=== PATIENT | female | born 1945 | race Caucasian/White ===

== ENCOUNTER → 2017-04-06 | Outpatient (CLI) | payer MEDICARE ==
[~2017-04-06] MED LIST: ACYC400T PO; ALEN70TA47 PO; ALPR0.25 PO; AMLO10TA2 PO; BUSP15 PO; CARV25TA PO; CIPR-278 PO; CLON0.2T PO; DULO60CA63 PO; FEXO-59 PO; FLUT1AER5 IH; GABA-318 PO; LEVO100T12 PO; LEVO88TA7 PO; LIOT5TAB8 PO; LOSA100T29 PO; METF500T6 PO; MONT10TA24 PO; NAPR-1023 PO; PANT40TA25 PO; QUET100T70 PO; RANI150T7 PO; TIZA4TAB4 PO
== END | disposition home or self-care (01) ==
LOC: RAH 14:55
PROVIDERS: ATTEND Family Medicine
DX: J44.9 Chronic obstructive pulmonary disease, unspecified (principal); I51.7 Cardiomegaly; R91.8 Other nonspecific abnormal finding of lung field
CPT/HCPCS: 71046

== ENCOUNTER 2017-04-12 07:27 | Inpatient (IN) | payer MEDICARE ==
[~2017-04-12] VITALS: Ht 167.6 cm; Wt 80.3 kg
[~2017-04-12 07:27] MED LIST changes: -ACYC400T PO; -AMLO10TA2 PO; -CIPR-278 PO; -DULO60CA63 PO; -LEVO88TA7 PO; -NAPR-1023 PO; -RANI150T7 PO
[2017-04-12 07:52] LABS: BASOPHILS % (AUTO) 1.1 % (0.0-5.0); EOSINOPHILS % (AUTO) 1.1 % (0.0-8.0); HEMATOCRIT 38.2 % (36-48); MEAN CORPUSCULAR HEMOGLOBIN 29.8 pg (27.0-33.0); MEAN CORPUSCULAR HGB CONC 34.2 g/dL (32.0-36.0); MEAN CORPUSCULAR VOLUME 87.3 fL (79-99); MONOCYTES % (AUTO) 9.3 % (3.0-13.0); NEUTROPHILS % (AUTO) 68.5 % (40.0-77.0); NUCLEATED RED BLOOD CELLS 0.1 % (0.0-0.19); PLATELET COUNT (AUTO) 187 K/uL (130-400); RED BLOOD CELL COUNT(AUTO) 4.37 MIL/uL (4.00-5.50); WHITE BLOOD COUNT (AUTO) 6.7 K/uL (4.8-10.8)
[2017-04-12] MEDS ORDERED: SODIUM CHLORIDE 0.9% 1000ML 1,000 ML IV ONE (07:52)
[2017-04-12] MEDS ORDERED: ONDANSETRON HCL 4 MG/2 ML VIAL ONE (07:52)
[2017-04-12] MEDS ORDERED: MORPHINE SULFATE 4 MG/1ML SYG ONE ×2 (07:53→10:13)
[2017-04-12 07:57] LABS: CARBON DIOXIDE 28 mmol/L (21-32); CHLORIDE 98 mmol/L (101-111); CREATININE 0.8 mg/dL (0.5-1.5); GLOMERULAR FILTR. RATE CALC 75 mL/min (>60); GLUCOSE,RANDOM 138 mg/dL (70-105); POTASSIUM 3.7 mmol/L (3.5-5.1); SODIUM SERUM 134 mmol/L (136-145); UREA NITROGEN, BLOOD 12 mg/dL (7-18)
[2017-04-12 08:12] LABS: ALANINE AMINOTRANSFERASE 14 U/L (12-78); ALBUMIN 3.3 g/dL (3.5-5.0); ASPARTATE AMINOTRANSFERASE 15 U/L (10-37); BILIRUBIN,TOTAL 0.5 mg/dL (0.2-1.0); CREATINE KINASE MB < 0.5 ng/mL (0.5-3.6); CREATINE KINASE, TOTAL 47 U/L (21-232); TOTAL PROTEIN, SERUM 6.6 g/dL (6.0-8.3)
[2017-04-12 09:59] LABS: APPEARANCE,URINE Clear (CLEAR); BILIRUBIN,URINE Negative (NEGATIVE); COLOR,URINE Yellow (YELLOW); GLUCOSE, URINE (UA) Negative (NEGATIVE); KETONES,URINE Negative (NEGATIVE); LEUKOCYTE ESTERASE ,URINE Negative (NEGATIVE); NITRATE,URINE Negative (NEGATIVE); OCCULT BLOOD,URINE Negative (NEGATIVE); PH,URINE 5.5 (5.0-8.0); PROTEIN,URINE Negative (NEGATIVE); UROBILINOGEN,URINE 0.2 mg/dL (0.2-1.0)
[2017-04-12] MEDS ORDERED: LEVOFLOXACIN 750 MG/D5W 150 ML 150 ML ONE (10:12)
[2017-04-12] MEDS ORDERED: IPRATROPIUM/ALBUTEROL SULFATE 3 ML SOLUTION IH ONE (10:24)
[2017-04-12 13:43] VITALS: BP 124/64
[2017-04-12] MEDS ORDERED: DOCUSATE SODIUM 100 MG CAP PO PRN (14:00)
[2017-04-12] MEDS ORDERED: POTASSIUM CHLORIDE 20MEQ/100ML 100 ML IV PRN (14:30)
[2017-04-12] MEDS ORDERED: LIDOCAINE HCL-MPF 1% 2ML VIAL IJ PRN (14:30)
[2017-04-12] MEDS ORDERED: GLUCAGON 1MG KIT 1 MG ML IM PRN (14:30)
[2017-04-12] MEDS ORDERED: POTASSIUM CHLORIDE 10% ELIXIR 20 MEQ/15 ML UDCUP PO PRN (14:30)
[2017-04-12] MEDS ORDERED: NALOXONE HCL 0.4 MG/1 ML ML IVP PRN (14:30)
[2017-04-12] MEDS ORDERED: DEXTROSE 50%-WATER 50 ML DISP.SYRIN IV PRN (14:30)
[2017-04-12] MEDS: SODIUM CHLORIDE 0.9% 1000ML 1,000 ML IV SCH (14:30)
[2017-04-12] MEDS: MORPHINE-NS 50 MG/50 ML 50 ML IV PRN (15:25)
[2017-04-12 16:00] VITALS: BP 137/65
[2017-04-12] MEDS: INSULIN R PO SSI SQ SCH ×2 (16:30→21:00)
[2017-04-12] MEDS ORDERED: FLU VACC QS2017-18 36MOS UP/PF 60 MCG/0.5 ML ML IM ONE (19:20)
[2017-04-12] MEDS ORDERED: DULO60CA63 PO ×2 (19:49)
[2017-04-12] MEDS ORDERED: LEVO88TA7 PO ×2 (19:49)
[2017-04-12] MEDS ORDERED: NAPR-1023 PO ×2 (19:49)
[2017-04-12] MEDS ORDERED: RANI150T7 PO ×2 (19:49)
[2017-04-12] MEDS ORDERED: CIPR-278 PO ×2 (19:49)
[2017-04-12] MEDS ORDERED: AMLO10TA2 PO ×2 (19:49)
[2017-04-12] MEDS ORDERED: ACYC400T PO ×2 (19:49)
[2017-04-12 20:00] VITALS: BP 153/65
[2017-04-13] VITALS (7 sets, daily range): BP systolic 104–185; BP diastolic 53–70
[2017-04-13] MEDS: ACETAMINOPHEN 325 MG TAB PO PRN ×2 (03:29→12:00)
[2017-04-13 05:48] LABS: BASOPHILS % (AUTO) 0.3 % (0.0-5.0); EOSINOPHILS % (AUTO) 1.9 % (0.0-8.0); HEMATOCRIT 36.8 % (36-48); LYMPHOCYTES % (AUTO) 16.2 % (21.0-51.0); MEAN CORPUSCULAR HEMOGLOBIN 29.3 pg (27.0-33.0); MEAN CORPUSCULAR VOLUME 86.2 fL (79-99); MONOCYTES % (AUTO) 9.6 % (3.0-13.0); PLATELET COUNT (AUTO) 192 K/uL (130-400); RED BLOOD CELL COUNT(AUTO) 4.27 MIL/uL (4.00-5.50); RED CELL DISTRIBUTION WIDTH 14.4 % (11.0-15.5); WHITE BLOOD COUNT (AUTO) 7.8 K/uL (4.8-10.8)
[2017-04-13 05:54] LABS: CREATININE 0.7 mg/dL (0.5-1.5); POTASSIUM 3.9 mmol/L (3.5-5.1)
[2017-04-13] MEDS: INSULIN R PO SSI SQ SCH ×4 (06:27→21:00)
[2017-04-13] MEDS ORDERED: NON-FORMULARY MEDICATION 1 EACH (Ranitidine HCl 150 MG) PO SCH (08:45)
[2017-04-13] MEDS ORDERED: IPRATROPIUM/ALBUTEROL SULFATE 3 ML SOLUTION IH PRN (08:45)
[2017-04-13] MEDS ORDERED: ACYCLOVIR 800 MG TABLET PO SCH (09:00)
[2017-04-13] MEDS: LIOTHYRONINE 12.5 MCG PO SCH ×2 (09:00→19:31)
[2017-04-13] MEDS: NAPROXEN 500 MG TABLET PO SCH ×2 (09:00→21:09)
[2017-04-13] MEDS: LEVOFLOXACIN 500 MG/D5W 100 ML 100 ML IV SCH (09:41)
[2017-04-13] MEDS: BUSPIRONE HCL 5 MG TABLET PO SCH ×2 (09:41→21:10)
[2017-04-13] MEDS: DULOXETINE HCL 30 MG CAP PO SCH (09:42)
[2017-04-13] MEDS: GABAPENTIN 300 MG CAPSULE PO SCH ×3 (09:42→21:09)
[2017-04-13] MEDS: CARVEDILOL 25 MG TABLET PO SCH ×2 (09:42→21:10)
[2017-04-13] MEDS: LEVOTHYROXINE 88 MCG TABLET PO SCH (09:43)
[2017-04-13] MEDS: AMLODIPINE BESYLATE 5 MG TAB PO SCH (09:43)
[2017-04-13] MEDS ORDERED: CLONIDINE HCL 0.1 MG TABLET PO PRN (10:15)
[2017-04-13] MEDS ORDERED: DiphenhydrAMINE HCL 50 MG/ML VIAL IVP PRN (10:15)
[2017-04-13] MEDS ORDERED: DIPHENHYDRAMINE HCL 25 MG CAPSULE PO PRN (10:15)
[2017-04-13] MEDS ORDERED: NITROGLYCERIN 0.4 MG SL TAB SL PRN (10:15)
[2017-04-13] MEDS ORDERED: ACETAMINOPHEN 325 MG TAB PO PRN (10:15)
[2017-04-13] MEDS ORDERED: ONDANSETRON HCL 4 MG/2 ML VIAL IVP PRN (10:15)
[2017-04-13] MEDS ORDERED: MAG HYDROX/AL HYDROX/SIMETH ES 30 ML SUSP UDCUP PO PRN (10:15)
[2017-04-13] MEDS ORDERED: ZOLPIDEM TARTRATE 5 MG TAB PO PRN (10:15)
[2017-04-13] MEDS ORDERED: SODIUM CHLORIDE 0.9% 10 ML VIAL IVP SCH (10:15)
[2017-04-13] MEDS: SODIUM CHLORIDE 0.9% 1000ML 1,000 ML IV SCH (10:30)
[2017-04-13] MEDS: LACTULOSE 20 GM/30 ML UDCUP PO PRN (15:18)
[2017-04-13] MEDS: ACYCLOVIR 200 MG CAPSULE PO SCH (21:09)
[2017-04-13] MEDS: TIZANIDINE HCL 2 MG TABLET PO SCH (21:09)
[2017-04-13] MEDS: MONTELUKAST SODIUM 10 MG TAB PO SCH (21:10)
[2017-04-13] MEDS: QUETIAPINE FUMARATE 100 MG TAB PO SCH (21:10)
[2017-04-13] MEDS: FAMOTIDINE 20MG TAB 20 MG TAB PO SCH (21:10)
[2017-04-13] MEDS: LOSARTAN 100 MG TABLET PO SCH (21:10)
[2017-04-14 04:00] VITALS: BP 120/54
[2017-04-14 05:34] LABS: HEMATOCRIT 33.8 % (36-48); MEAN CORPUSCULAR HEMOGLOBIN 30.5 pg (27.0-33.0); MEAN CORPUSCULAR HGB CONC 34.9 g/dL (32.0-36.0); MEAN CORPUSCULAR VOLUME 87.6 fL (79-99); PLATELET COUNT (AUTO) 178 K/uL (130-400); RED BLOOD CELL COUNT(AUTO) 3.86 MIL/uL (4.00-5.50); RED CELL DISTRIBUTION WIDTH 14.4 % (11.0-15.5); WHITE BLOOD COUNT (AUTO) 7.3 K/uL (4.8-10.8)
[2017-04-14 05:39] LABS: CREATININE 0.8 mg/dL (0.5-1.5); POTASSIUM 3.3 mmol/L (3.5-5.1)
[2017-04-14] MEDS: INSULIN R PO SSI SQ SCH ×4 (05:55→21:00)
[2017-04-14] MEDS: POTASSIUM CHLORIDE 20 MEQ ERTAB PO PRN ×4 (06:18→22:44)
[2017-04-14 08:07] VITALS: BP 137/84
[2017-04-14] MEDS: LEVOTHYROXINE 88 MCG TABLET PO SCH (09:00)
[2017-04-14] MEDS: LIOTHYRONINE 12.5 MCG PO SCH ×2 (09:00→21:00)
[2017-04-14] MEDS: LEVOFLOXACIN 500 MG/D5W 100 ML 100 ML IV SCH (10:03)
[2017-04-14] MEDS: GABAPENTIN 300 MG CAPSULE PO SCH ×3 (10:04→22:48)
[2017-04-14] MEDS: AMLODIPINE BESYLATE 5 MG TAB PO SCH (10:04)
[2017-04-14] MEDS: CARVEDILOL 25 MG TABLET PO SCH ×2 (10:05→22:36)
[2017-04-14] MEDS: ACYCLOVIR 200 MG CAPSULE PO SCH ×2 (10:05→22:35)
[2017-04-14] MEDS: NAPROXEN 500 MG TABLET PO SCH ×2 (10:06→22:36)
[2017-04-14] MEDS: FAMOTIDINE 20MG TAB 20 MG TAB PO SCH ×2 (10:06→22:35)
[2017-04-14] MEDS: DULOXETINE HCL 30 MG CAP PO SCH (10:06)
[2017-04-14] MEDS: BUSPIRONE HCL 5 MG TABLET PO SCH ×2 (10:06→22:35)
[2017-04-14 11:27] VITALS: BP 138/61
[2017-04-14] MEDS: LACTULOSE 20 GM/30 ML UDCUP PO PRN ×2 (14:12→22:44)
[2017-04-14 16:23] VITALS: BP 98/62
[2017-04-14] MEDS: IPRATROPIUM/ALBUTEROL SULFATE 3 ML SOLUTION IH SCH ×2 (18:38→21:14)
[2017-04-14 19:00] VITALS: BP 136/51
[2017-04-14] MEDS: LOSARTAN 100 MG TABLET PO SCH (22:35)
[2017-04-14] MEDS: TIZANIDINE HCL 2 MG TABLET PO SCH (22:35)
[2017-04-14] MEDS: MONTELUKAST SODIUM 10 MG TAB PO SCH (22:35)
[2017-04-14] MEDS: QUETIAPINE FUMARATE 100 MG TAB PO SCH (22:36)
[2017-04-14] MEDS: SODIUM CHLORIDE 0.9% 1000ML 1,000 ML IV SCH (22:44)
[2017-04-14] MEDS: MORPHINE-NS 50 MG/50 ML 50 ML IV PRN (22:46)
[2017-04-14] MEDS: GUAIFENESIN SUGAR-FREE 100 MG/5 ML UDCUP PO PRN (22:50)
[2017-04-14 23:00] VITALS: BP 143/75
[2017-04-15] MEDS: IPRATROPIUM/ALBUTEROL SULFATE 3 ML SOLUTION IH SCH ×3 (01:00→09:04)
[2017-04-15] MEDS: SODIUM CHLORIDE 0.9% 1000ML 1,000 ML IV SCH (02:13)
[2017-04-15 03:00] VITALS: BP 164/70
[2017-04-15] MEDS: INSULIN R PO SSI SQ SCH (06:20)
[2017-04-15 06:59] VITALS: BP 121/70
[2017-04-15] MEDS: LEVOFLOXACIN 500 MG/D5W 100 ML 100 ML IV SCH (08:36)
[2017-04-15] MEDS: BUSPIRONE HCL 5 MG TABLET PO SCH (08:37)
[2017-04-15 08:38] VITALS: BP 121/70
[2017-04-15] MEDS: CARVEDILOL 25 MG TABLET PO SCH (08:38)
[2017-04-15] MEDS: DULOXETINE HCL 30 MG CAP PO SCH (08:38)
[2017-04-15] MEDS: LIOTHYRONINE 12.5 MCG PO SCH (08:38)
[2017-04-15] MEDS: NAPROXEN 500 MG TABLET PO SCH (08:38)
[2017-04-15] MEDS: AMLODIPINE BESYLATE 5 MG TAB PO SCH (08:39)
[2017-04-15] MEDS: FAMOTIDINE 20MG TAB 20 MG TAB PO SCH (08:39)
[2017-04-15] MEDS: GUAIFENESIN SUGAR-FREE 100 MG/5 ML UDCUP PO PRN (08:39)
[2017-04-15] MEDS: LEVOTHYROXINE 88 MCG TABLET PO SCH (08:39)
[2017-04-15] MEDS: ACYCLOVIR 200 MG CAPSULE PO SCH (08:39)
[2017-04-15] MEDS: GABAPENTIN 300 MG CAPSULE PO SCH (08:39)
[2017-04-20] MEDS ORDERED: ALENDRONATE SODIUM 35 MG TAB PO SCH (06:30)
== END 2017-04-15 12:15 | disposition home or self-care (01) | DRG 551 ==
LOC: EDH 07:27 → EDHIP 11:00 → 4AH 12:40 → 4BH 04-13 07:39
PROVIDERS: ADMIT Family Medicine; ATTEND Family Medicine
DX: S22.089A Unspecified fracture of T11-T12 vertebra, initial encounter for closed fracture (principal); J15.9 Unspecified bacterial pneumonia; E11.9 Type 2 diabetes mellitus without complications; E03.9 Hypothyroidism, unspecified; W19.XXXA Unspecified fall, initial encounter; F32.9 Major depressive disorder, single episode, unspecified; F41.9 Anxiety disorder, unspecified; I10 Essential (primary) hypertension; Y93.89 Activity, other specified; Y92.89 Other specified places as the place of occurrence of the external cause; Y99.8 Other external cause status; Z88.0 Allergy status to penicillin
CPT/HCPCS: 36415; 71045; 72128; 72131; 80048; 80053; 81003; 82550; 82553; 82948; 84484; 85025; 85027; 87040; 87804; 93005; 94640; 94664; J1956; J2270; J2405; J7030

== ENCOUNTER → 2017-07-13 | Outpatient (CLI) | payer MEDICARE ==
[~2017-07-13] MED LIST changes: +ACYC400T PO; -ALPR0.25 PO; +AMLO10TA2 PO; +CIPR-278 PO; +DULO60CA63 PO; -FEXO-59 PO; -FLUT1AER5 IH; -LEVO100T12 PO; +LEVO88TA7 PO; +NAPR-1023 PO; -PANT40TA25 PO; +RANI150T7 PO
== END | disposition home or self-care (01) ==
LOC: RAH 10:10
PROVIDERS: ATTEND Family Medicine
DX: M47.892 Other spondylosis, cervical region (principal); M19.012 Primary osteoarthritis, left shoulder
CPT/HCPCS: 72040; 73030

== ENCOUNTER 2019-02-03 15:53 | Emergency (ER) | payer MEDICARE ==
[~2019-02-03 15:53] MED LIST changes: +ALEN70TA10 PO; -ALEN70TA47 PO; -AMLO10TA2 PO; +AMLO10TA7 PO; -DULO60CA63 PO; +DULO60CA64 PO; -GABA-318 PO; +GABA600T10 PO; +LIOT5TAB11 PO; -LIOT5TAB8 PO; -LOSA100T29 PO; +LOSA100T58 PO; +METF-444 PO; -METF500T6 PO; -TIZA4TAB4 PO; +TIZA4TAB5 PO
[2019-02-03 16:38] LABS: CREATININE 1.1 mg/dL (0.5-1.5); POTASSIUM 4.1 mmol/L (3.5-5.1)
[2019-02-03 16:40] LABS: INR 0.95 (0.85-1.15); PARTIAL THROMBOPLASTIN TIME 29.2 SEC (26.3-35.5)
[2019-02-03 16:42] LABS: ALBUMIN 3.6 g/dL (3.5-5.0); BILIRUBIN,TOTAL 0.2 mg/dL (0.2-1.0); TOTAL PROTEIN, SERUM 7.4 g/dL (6.0-8.3)
[2019-02-03 16:44] LABS: BASOPHILS % (AUTO) 1.3 % (0.0-5.0); EOSINOPHILS % (AUTO) 3.1 % (0.0-8.0); HEMATOCRIT 34.9 % (36-48); LYMPHOCYTES % (AUTO) 31.8 % (21.0-51.0); MEAN CORPUSCULAR HEMOGLOBIN 29.6 pg (27.0-33.0); MEAN CORPUSCULAR HGB CONC 34.4 g/dL (32.0-36.0); NEUTROPHILS % (AUTO) 54.8 % (40.0-77.0); NUCLEATED RED BLOOD CELLS 0.1 % (0.0-0.19); PLATELET COUNT (AUTO) 204 K/uL (130-400); RED BLOOD CELL COUNT(AUTO) 4.05 MIL/uL (4.00-5.50); RED CELL DISTRIBUTION WIDTH 16.4 % (11.0-15.5); WHITE BLOOD COUNT (AUTO) 6.4 K/uL (4.8-10.8)
[2019-02-03] MEDS ORDERED: ASPIRIN 325 MG TABLET ONE (16:48)
[2019-02-03] MEDS ORDERED: IPRATROPIUM/ALBUTEROL SULFATE 3 ML SOLUTION IH ONE (16:51)
== END 2019-02-03 20:09 | disposition home or self-care (01) ==
LOC: EDH 15:53
DX: J44.1 Chronic obstructive pulmonary disease with (acute) exacerbation (principal); R07.89 Other chest pain; E11.9 Type 2 diabetes mellitus without complications; F41.9 Anxiety disorder, unspecified; F32.9 Major depressive disorder, single episode, unspecified; I10 Essential (primary) hypertension; E07.9 Disorder of thyroid, unspecified; J44.9 Chronic obstructive pulmonary disease, unspecified; Z88.6 Allergy status to analgesic agent; Z88.0 Allergy status to penicillin; Z90.710 Acquired absence of both cervix and uterus; Z98.890 Other specified postprocedural states
CPT/HCPCS: 36415; 71045; 80053; 83880; 84484; 85025; 85610; 85730; 93005; 94640

== ENCOUNTER → 2019-03-23 | Outpatient (CLI) | payer MEDICARE | END | disposition home or self-care (01) | LOC: RAH 08:46 | PROVIDERS: ATTEND Family Medicine | DX: K44.9 Diaphragmatic hernia without obstruction or gangrene (principal); K21.9 Gastro-esophageal reflux disease without esophagitis | CPT/HCPCS: 74240 ==

== ENCOUNTER 2019-05-10 19:54 | Emergency (ER) | payer MEDICARE ==
[~2019-05-10 19:54] MED LIST changes: -MONT10TA24 PO; +MONT10TA26 PO; +QUET100T33 PO; -QUET100T70 PO
== END 2019-05-10 21:33 | disposition home or self-care (01) ==
LOC: EDH 19:54
DX: G89.29 Other chronic pain (principal); M25.552 Pain in left hip; F41.9 Anxiety disorder, unspecified; F32.9 Major depressive disorder, single episode, unspecified; E11.9 Type 2 diabetes mellitus without complications; I10 Essential (primary) hypertension; Z88.0 Allergy status to penicillin; Z88.1 Allergy status to other antibiotic agents
CPT/HCPCS: 73502

== ENCOUNTER 2019-06-15 22:46 | Emergency (ER) | payer MEDICARE ==
[2019-06-16 00:03] LABS: APPEARANCE,URINE Clear (CLEAR); BILIRUBIN,URINE Negative (NEGATIVE); COLOR,URINE Yellow (YELLOW); GLUCOSE, URINE (UA) Negative (NEGATIVE); KETONES,URINE Negative (NEGATIVE); LEUKOCYTE ESTERASE ,URINE Negative (NEGATIVE); NITRATE,URINE Negative (NEGATIVE); OCCULT BLOOD,URINE Negative (NEGATIVE); PROTEIN,URINE Negative (NEGATIVE); UROBILINOGEN,URINE 0.2 mg/dL (0.2-1.0)
[2019-06-16 01:02] LABS: CREATININE 0.9 mg/dL (0.5-1.5); POTASSIUM 4.3 mmol/L (3.5-5.1)
[2019-06-16 01:06] LABS: ALBUMIN 3.3 g/dL (3.5-5.0); BILIRUBIN,TOTAL 0.2 mg/dL (0.2-1.0); TOTAL PROTEIN, SERUM 6.6 g/dL (6.0-8.3)
[2019-06-16 01:19] LABS: BASOPHILS % (AUTO) 0.4 % (0.0-5.0); EOSINOPHILS % (AUTO) 1.6 % (0.0-8.0); HEMATOCRIT 30.6 % (36-48); LYMPHOCYTES % (AUTO) 39.7 % (21.0-51.0); MEAN CORPUSCULAR HEMOGLOBIN 27.7 pg (27.0-33.0); MEAN CORPUSCULAR HGB CONC 32.7 g/dL (32.0-36.0); MEAN CORPUSCULAR VOLUME 84.8 fL (79-99); MONOCYTES % (AUTO) 8.9 % (3.0-13.0); NEUTROPHILS % (AUTO) 49.2 % (40.0-77.0); PLATELET COUNT (AUTO) 209 K/uL (130-400); RED BLOOD CELL COUNT(AUTO) 3.61 MIL/uL (4.00-5.50); RED CELL DISTRIBUTION WIDTH 13.3 % (11.0-15.5); WHITE BLOOD COUNT (AUTO) 5.1 K/uL (4.8-10.8)
== END 2019-06-16 01:53 | disposition home or self-care (01) ==
LOC: EDH 22:46
DX: R30.0 Dysuria (principal); N39.0 Urinary tract infection, site not specified; E11.9 Type 2 diabetes mellitus without complications; F41.9 Anxiety disorder, unspecified; F32.9 Major depressive disorder, single episode, unspecified; I10 Essential (primary) hypertension; Z98.890 Other specified postprocedural states; Z90.49 Acquired absence of other specified parts of digestive tract; Z90.710 Acquired absence of both cervix and uterus; Z88.0 Allergy status to penicillin; Z88.6 Allergy status to analgesic agent
CPT/HCPCS: 36415; 80053; 81003; 85025

== ENCOUNTER 2019-07-22 16:18 | Observation (INO) | payer MEDICARE ==
[~2019-07-22] VITALS: Ht 167.6 cm; Wt 669.7 kg
[2019-07-22] MEDS ORDERED: ONDANSETRON HCL 4 MG/2 ML VIAL ONE ×2 (16:29→21:09)
[2019-07-22 16:38] LABS: BASOPHILS % (AUTO) 0.3 % (0.0-5.0); EOSINOPHILS % (AUTO) 0.2 % (0.0-8.0); HEMATOCRIT 37.1 % (36-48); LYMPHOCYTES % (AUTO) 19.1 % (21.0-51.0); MEAN CORPUSCULAR HEMOGLOBIN 27.2 pg (27.0-33.0); MEAN CORPUSCULAR HGB CONC 33.4 g/dL (32.0-36.0); MEAN CORPUSCULAR VOLUME 81.4 fL (79-99); MONOCYTES % (AUTO) 5.8 % (3.0-13.0); NEUTROPHILS % (AUTO) 74.2 % (40.0-77.0); PLATELET COUNT (AUTO) 356 K/uL (130-400); RED BLOOD CELL COUNT(AUTO) 4.56 MIL/uL (4.00-5.50); RED CELL DISTRIBUTION WIDTH 13.4 % (11.0-15.5); WHITE BLOOD COUNT (AUTO) 9.7 K/uL (4.8-10.8)
[2019-07-22 16:55] LABS: CREATININE 1.1 mg/dL (0.5-1.5); POTASSIUM 3.8 mmol/L (3.5-5.1)
[2019-07-22 16:59] LABS: ALBUMIN 3.9 g/dL (3.5-5.0); BILIRUBIN,TOTAL 0.2 mg/dL (0.2-1.0)
[2019-07-22 19:57] LABS: APPEARANCE,URINE Clear (CLEAR); BILIRUBIN,URINE Negative (NEGATIVE); COLOR,URINE Yellow (YELLOW); GLUCOSE, URINE (UA) Negative (NEGATIVE); KETONES,URINE Negative (NEGATIVE); LEUKOCYTE ESTERASE ,URINE Small (NEGATIVE); NITRATE,URINE Positive (NEGATIVE); OCCULT BLOOD,URINE Negative (NEGATIVE); PROTEIN,URINE Negative (NEGATIVE); UROBILINOGEN,URINE 0.2 mg/dL (0.2-1.0)
[2019-07-22 20:07] LABS: BACTERIA,URINE Moderate /HPF (None Seen); RBC,URINE 0-1 /HPF (0-1); SQUAMOUS EPITHELIAL CELL,UR Rare /HPF (0-2)
[2019-07-22] MEDS ORDERED: CEFTRIAXONE SODIUM 1 GM ONE (21:09)
[2019-07-22] MEDS ORDERED: LACTATED RINGERS 1000ML 1,000 ML IV ONE (21:10)
[2019-07-22] MEDS ORDERED: FAMOTIDINE/PF 20 MG/2 ML VIAL IV ONE (21:10)
[2019-07-22 22:32] VITALS: BP 150/69
[2019-07-22] MEDS ORDERED: ACETAMINOPHEN 325 MG TAB PO PRN (23:45)
[2019-07-22] MEDS ORDERED: ONDANSETRON HCL 4 MG/2 ML VIAL IVP PRN (23:45)
[2019-07-22] MEDS ORDERED: HYDRALAZINE HCL 20 MG/ML VIAL IV PRN (23:45)
[2019-07-22] MEDS: LACTATED RINGERS 1000ML 1,000 ML IV SCH (23:45)
[2019-07-23] MEDS ORDERED: TEMAZEPAM 15 MG CAPSULE PO PRN (00:15)
[2019-07-23] MEDS ORDERED: TEMAZEPAM 15 MG CAPSULE ONE (00:18)
[2019-07-23 03:33] VITALS: BP 141/55
[2019-07-23 05:08] LABS: HEMATOCRIT 32.9 % (36-48); MEAN CORPUSCULAR HEMOGLOBIN 27.5 pg (27.0-33.0); MEAN CORPUSCULAR HGB CONC 33.1 g/dL (32.0-36.0); MEAN CORPUSCULAR VOLUME 82.9 fL (79-99); PLATELET COUNT (AUTO) 281 K/uL (130-400); RED BLOOD CELL COUNT(AUTO) 3.97 MIL/uL (4.00-5.50); RED CELL DISTRIBUTION WIDTH 13.6 % (11.0-15.5); WHITE BLOOD COUNT (AUTO) 6.5 K/uL (4.8-10.8)
[2019-07-23 05:24] LABS: ALBUMIN 3.2 g/dL (3.5-5.0); BILIRUBIN,TOTAL 0.3 mg/dL (0.2-1.0); CREATININE 0.9 mg/dL (0.5-1.5); POTASSIUM 4.2 mmol/L (3.5-5.1); TOTAL PROTEIN, SERUM 6.7 g/dL (6.0-8.3)
[2019-07-23] MEDS: LACTATED RINGERS 1000ML 1,000 ML IV SCH ×3 (06:07→22:36)
[2019-07-23] MEDS: LEVOFLOXACIN 500 MG/D5W 100 ML 100 ML IV SCH (08:09)
[2019-07-23] MEDS: FAMOTIDINE/PF 20 MG/2 ML VIAL IV SCH (08:09)
[2019-07-23 08:23] VITALS: BP 151/70
[2019-07-23 12:45] VITALS: BP 178/80
[2019-07-23] MEDS: BUSPIRONE HCL 5 MG TABLET PO SCH ×2 (14:21→21:09)
[2019-07-23] MEDS: CARVEDILOL 25 MG TABLET PO SCH ×2 (14:21→21:12)
[2019-07-23] MEDS: DULOXETINE HCL 30 MG CAP PO SCH (14:24)
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
[2019-07-23] MEDS: METFORMIN HCL 500 MG TABLET PO SCH (16:58)
[2019-07-23] MEDS: GABAPENTIN 300 MG CAPSULE PO SCH ×2 (16:58→21:10)
[2019-07-23 17:17] VITALS: BP 181/75
[2019-07-23 19:10] VITALS: BP 164/71
[2019-07-23] MEDS ORDERED: CARVEDILOL 25 MG TABLET PO SCH (21:00)
[2019-07-23] MEDS ORDERED: TIZANIDINE HCL 2 MG TABLET PO SCH (21:00)
[2019-07-23] MEDS ORDERED: LOSARTAN 100 MG TABLET PO SCH (21:00)
[2019-07-23] MEDS: LIOTHYRONINE 12.5 MCG PO SCH (21:00)
[2019-07-23] MEDS ORDERED: QUETIAPINE FUMARATE 100 MG TAB PO SCH (21:00)
[2019-07-23] MEDS ORDERED: BUSPIRONE HCL 5 MG TABLET PO SCH (21:00)
[2019-07-23] MEDS ORDERED: MONTELUKAST SODIUM 10 MG TAB PO SCH (21:00)
[2019-07-23] MEDS: NAPROXEN 500 MG TABLET PO SCH (21:11)
[2019-07-23] MEDS: CLONIDINE HCL 0.2 MG TABLET PO SCH (21:11)
[2019-07-23 23:20] VITALS: BP 110/45
[2019-07-24 03:05] VITALS: BP 105/46
[2019-07-24] MEDS ORDERED: LEVOTHYROXINE 88 MCG TABLET ONE (05:28)
[2019-07-24 05:31] LABS: HEMATOCRIT 28.7 % (36-48); MEAN CORPUSCULAR HEMOGLOBIN 27.6 pg (27.0-33.0); MEAN CORPUSCULAR HGB CONC 32.8 g/dL (32.0-36.0); MEAN CORPUSCULAR VOLUME 84.4 fL (79-99); PLATELET COUNT (AUTO) 233 K/uL (130-400); RED CELL DISTRIBUTION WIDTH 13.9 % (11.0-15.5); WHITE BLOOD COUNT (AUTO) 4.2 K/uL (4.8-10.8)
[2019-07-24 05:49] LABS: CREATININE 0.8 mg/dL (0.5-1.5); POTASSIUM 3.6 mmol/L (3.5-5.1)
[2019-07-24] MEDS: LEVOFLOXACIN 500 MG/D5W 100 ML 100 ML IV SCH (06:02)
[2019-07-24] MEDS ORDERED: LEVOTHYROXINE 88 MCG TABLET PO SCH (06:30)
[2019-07-24 08:15] VITALS: BP 122/47
[2019-07-24] MEDS: METFORMIN HCL 500 MG TABLET PO SCH ×2 (08:57→17:19)
[2019-07-24] MEDS: NAPROXEN 500 MG TABLET PO SCH (08:58)
[2019-07-24] MEDS: DULOXETINE HCL 30 MG CAP PO SCH (08:58)
[2019-07-24] MEDS: BUSPIRONE HCL 5 MG TABLET PO SCH (08:59)
[2019-07-24] MEDS ORDERED: DULOXETINE HCL 30 MG CAP PO SCH (09:00)
[2019-07-24] MEDS ORDERED: AMLODIPINE BESYLATE 5 MG TAB PO SCH (09:00)
[2019-07-24] MEDS: LIOTHYRONINE 12.5 MCG PO SCH (09:00)
[2019-07-24] MEDS: GABAPENTIN 300 MG CAPSULE PO SCH ×2 (09:00→15:35)
[2019-07-24] MEDS: FAMOTIDINE/PF 20 MG/2 ML VIAL IV SCH (09:01)
[2019-07-24] MEDS: CARVEDILOL 25 MG TABLET PO SCH (11:21)
[2019-07-24] MEDS: CLONIDINE HCL 0.2 MG TABLET PO SCH (11:22)
[2019-07-24 12:11] VITALS: BP 167/84
[2019-07-24] MEDS ORDERED: LEVO750T46 PO (13:30)
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
[2019-07-30] MEDS ORDERED: ALENDRONATE SODIUM 35 MG TAB PO SCH (06:30)
== END 2019-07-24 18:00 | disposition home or self-care (01) ==
LOC: EDH 16:18 → EDHIP 21:00 → 3BH 21:12
PROVIDERS: ADMIT Internal Medicine Critical Care Medicine; ATTEND Internal Medicine Critical Care Medicine
DX: N39.0 Urinary tract infection, site not specified (principal); E11.9 Type 2 diabetes mellitus without complications; R11.2 Nausea with vomiting, unspecified; E03.9 Hypothyroidism, unspecified; F32.9 Major depressive disorder, single episode, unspecified; F41.9 Anxiety disorder, unspecified; I10 Essential (primary) hypertension; J44.9 Chronic obstructive pulmonary disease, unspecified; M48.54XA Collapsed vertebra, not elsewhere classified, thoracic region, initial encounter for fracture; Z90.710 Acquired absence of both cervix and uterus; Z88.5 Allergy status to narcotic agent; Z88.0 Allergy status to penicillin; Z79.899 Other long term (current) drug therapy
CPT/HCPCS: 36415 ×3; 71045; 74021; 74176; 80048; 80053 ×2; 81001; 83690; 85025; 85027 ×2; 87077; 87088; 87186; 93005; 96361 ×2; 96365; 96366; 96375; 96376; 97116; 97161; 99285; G0378 ×4; G8978; G8979; G8980; G8981; G8982; G8983; J0696; J1956 ×2; J2405 ×2; J3490 ×3; J7120 ×4

== ENCOUNTER 2019-09-08 | Emergency (ER) | payer MEDICARE | END 2019-09-09 00:52 | disposition home or self-care (01) | DX: K64.0 First degree hemorrhoids (principal); R21 Rash and other nonspecific skin eruption ==

== ENCOUNTER 2020-03-30 14:35 | Emergency (ER) | payer MEDICARE ==
[~2020-03-30 14:35] MED LIST changes: -ACYC400T PO; -ALEN70TA10 PO; +ALEN70TA69 PO; +AMLO-258 PO; -AMLO10TA7 PO; -CIPR-278 PO; -CLON0.2T PO; -DULO60CA64 PO; -GABA600T10 PO; -MONT10TA26 PO; +MONT10TA96 PO; -NAPR-1023 PO; +PANT40TA55 PO; -RANI150T7 PO
[2020-03-30] MEDS ORDERED: ONDANSETRON HCL 4 MG/2 ML VIAL ONE (15:21)
[2020-03-30] MEDS ORDERED: SODIUM CHLORIDE 0.9% 1000ML 1,000 ML IV ONE (15:22)
[2020-03-30 15:34] LABS: BASOPHILS % (AUTO) 1.2 % (0.0-5.0); EOSINOPHILS % (AUTO) 1.7 % (0.0-8.0); HEMATOCRIT 32.1 % (36-48); LYMPHOCYTES % (AUTO) 30.6 % (21.0-51.0); MEAN CORPUSCULAR HEMOGLOBIN 25.7 pg (27.0-33.0); MEAN CORPUSCULAR HGB CONC 32.4 g/dL (32.0-36.0); MEAN CORPUSCULAR VOLUME 79.5 fL (79-99); MONOCYTES % (AUTO) 10.1 % (3.0-13.0); NEUTROPHILS % (AUTO) 56.2 % (40.0-77.0); PLATELET COUNT (AUTO) 323 K/uL (130-400); RED BLOOD CELL COUNT(AUTO) 4.04 MIL/uL (4.00-5.50); RED CELL DISTRIBUTION WIDTH 14.6 % (11.0-15.5); WHITE BLOOD COUNT (AUTO) 4.2 K/uL (4.8-10.8)
[2020-03-30 15:47] LABS: APPEARANCE,URINE Clear (CLEAR); BILIRUBIN,URINE Negative (NEGATIVE); COLOR,URINE Yellow (YELLOW); GLUCOSE, URINE (UA) Negative (NEGATIVE); KETONES,URINE Negative (NEGATIVE); LEUKOCYTE ESTERASE ,URINE Trace (NEGATIVE); NITRATE,URINE Negative (NEGATIVE); OCCULT BLOOD,URINE Negative (NEGATIVE); PROTEIN,URINE Negative (NEGATIVE); UROBILINOGEN,URINE 0.2 mg/dL (0.2-1.0)
[2020-03-30 15:51] LABS: CREATININE 1.4 mg/dL (0.5-1.5); POTASSIUM 4.1 mmol/L (3.5-5.1)
[2020-03-30 15:55] LABS: ALBUMIN 3.6 g/dL (3.5-5.0); BILIRUBIN,TOTAL 0.2 mg/dL (0.2-1.0); TOTAL PROTEIN, SERUM 7.7 g/dL (6.0-8.3)
[2020-03-30 15:57] LABS: BACTERIA,URINE Rare /HPF (None Seen); MUCUS,URINE Few LPF (None Seen); RBC,URINE 0-1 /HPF (0-1); SQUAMOUS EPITHELIAL CELL,UR Few /HPF (0-2)
[2020-03-30] MEDS ORDERED: IOHEXOL-350 75 ML VIAL IV ONE (15:58)
[2020-03-30 15:59] LABS: INR 1.06 (0.85-1.15); PROTHROMBIN TIME 11.3 SEC (9.6-11.6)
[2020-03-30 16:00] LABS: PARTIAL THROMBOPLASTIN TIME 27.3 SEC (26.3-35.5)
== END 2020-03-30 18:59 | disposition home or self-care (01) ==
LOC: EDH 14:35
DX: A08.4 Viral intestinal infection, unspecified (principal); E86.0 Dehydration; K64.4 Residual hemorrhoidal skin tags; Z20.828 Contact with and (suspected) exposure to other viral communicable diseases; I10 Essential (primary) hypertension; E11.9 Type 2 diabetes mellitus without complications; F32.9 Major depressive disorder, single episode, unspecified; F41.9 Anxiety disorder, unspecified; E03.9 Hypothyroidism, unspecified; Z88.0 Allergy status to penicillin; Z88.6 Allergy status to analgesic agent; Z90.710 Acquired absence of both cervix and uterus; Z98.890 Other specified postprocedural states
CPT/HCPCS: 36415; 74177; 80053; 81001; 82270; 82550; 83605; 83690; 84484; 85025; 85610; 85730; 87040 ×2; 87426; 87804 ×2; 87880; 93005; 96361; 96374; 99285; J2405; J7030; Q9967; U0003

== ENCOUNTER 2021-02-04 16:18 | Emergency (ER) | payer MEDICARE ==
[~2021-02-04] VITALS: Ht 167.6 cm; Wt 85.3 kg
[~2021-02-04 16:18] MED LIST changes: -ALEN70TA69 PO; +ALEN70TA80 PO; +MONT-39 PO; -MONT10TA96 PO; -QUET100T33 PO; +QUET100T34 PO; +TIZA-211 PO; -TIZA4TAB5 PO
[2021-02-04 16:57] LABS: BASOPHILS % (AUTO) 0.5 % (0.0-5.0); EOSINOPHILS % (AUTO) 1.6 % (0.0-8.0); HEMATOCRIT 35.3 % (36-48); LYMPHOCYTES % (AUTO) 36.4 % (21.0-51.0); MEAN CORPUSCULAR HEMOGLOBIN 27.4 pg (27.0-33.0); MEAN CORPUSCULAR VOLUME 85.5 fL (79-99); MONOCYTES % (AUTO) 8.9 % (3.0-13.0); NEUTROPHILS % (AUTO) 52.3 % (40.0-77.0); PLATELET COUNT (AUTO) 245 K/uL (130-400); RED BLOOD CELL COUNT(AUTO) 4.13 MIL/uL (4.00-5.50); WHITE BLOOD COUNT (AUTO) 7.5 K/uL (4.8-10.8)
[2021-02-04] MEDS ORDERED: 0.9%NACL 1000ML 1,000 ML IV ONE (17:00)
[2021-02-04 17:08] LABS: APPEARANCE,URINE Clear (CLEAR); BILIRUBIN,URINE Negative (NEGATIVE); COLOR,URINE Yellow (YELLOW); GLUCOSE, URINE (UA) Negative (NEGATIVE); KETONES,URINE Negative (NEGATIVE); LEUKOCYTE ESTERASE ,URINE Trace (NEGATIVE); NITRATE,URINE Negative (NEGATIVE); OCCULT BLOOD,URINE Negative (NEGATIVE); PH,URINE 5.5 (5.0-8.0); PROTEIN,URINE Negative (NEGATIVE); UROBILINOGEN,URINE 0.2 mg/dL (0.2-1.0)
[2021-02-04 17:10] LABS: POTASSIUM 4.4 mmol/L (3.5-5.1)
[2021-02-04 17:14] LABS: ALBUMIN 3.8 g/dL (3.5-5.0); BILIRUBIN,TOTAL 0.1 mg/dL (0.2-1.0); TOTAL PROTEIN, SERUM 7.3 g/dL (6.0-8.3)
[2021-02-04 17:18] LABS: BACTERIA,URINE Rare /HPF (None Seen); RBC,URINE 0-1 /HPF (0-1)
[2021-02-04 17:19] LABS: SQUAMOUS EPITHELIAL CELL,UR None Seen /HPF (0-2)
[2021-02-04] MEDS ORDERED: ONDANSETRON 4MG INJ IVP ONE (17:30)
[2021-02-04] MEDS ORDERED: DiphenhydrAMINE HCL 50 MG/ML VIAL IV ONE (19:30)
[2021-02-04] MEDS ORDERED: METOCLOPRAMIDE 10 MG/2 ML VIAL IVP ONE (19:30)
[2021-02-04] MEDS ORDERED: KETOROLAC 15MG/ML VIAL (15MG/ML) IV ONE (20:10)
[2021-02-04] MEDS ORDERED: METO10TA41 PO (20:15)
[2021-02-04] MEDS ORDERED: DIPH25 PO (20:15)
[2021-02-04 20:54] VITALS: BP 157/69
== END 2021-02-04 20:33 | disposition home or self-care (01) ==
LOC: EDH 16:18
DX: R51.9 Headache, unspecified (principal); R10.84 Generalized abdominal pain; R11.0 Nausea; E03.9 Hypothyroidism, unspecified; I10 Essential (primary) hypertension; E11.9 Type 2 diabetes mellitus without complications; F32.A Depression, unspecified; Z88.5 Allergy status to narcotic agent; Z88.0 Allergy status to penicillin; Z79.899 Other long term (current) drug therapy; Z79.84 Long term (current) use of oral hypoglycemic drugs
CPT/HCPCS: 36415; 70450; 71045; 80053; 81001; 84484; 85025; 93005; 96361; 96374; 96375; 99285; J1200; J1885; J2405; J2765; J7030

== ENCOUNTER 2021-03-02 14:18 | Emergency (ER) | payer MEDICARE ==
[~2021-03-02] VITALS: Ht 167.6 cm; Wt 85.3 kg
[~2021-03-02 14:18] MED LIST changes: +DIPH25 PO; +METO10TA41 PO
[2021-03-02 15:27] LABS: HEMATOCRIT 33.1 % (36-48); MEAN CORPUSCULAR HEMOGLOBIN 27.4 pg (27.0-33.0); MEAN CORPUSCULAR HGB CONC 32.3 g/dL (32.0-36.0); MEAN CORPUSCULAR VOLUME 84.7 fL (79-99); PLATELET COUNT (AUTO) 246 K/uL (130-400); RED BLOOD CELL COUNT(AUTO) 3.91 MIL/uL (4.00-5.50); RED CELL DISTRIBUTION WIDTH 14.8 % (11.0-15.5); WHITE BLOOD COUNT (AUTO) 7.3 K/uL (4.8-10.8)
[2021-03-02 15:41] LABS: CREATININE 1.2 mg/dL (0.5-1.5); POTASSIUM 4.4 mmol/L (3.5-5.1)
[2021-03-02 15:45] LABS: B-TYPE NATRIURETIC PEPTIDE < 5 pg/mL (0-100)
[2021-03-02 15:46] LABS: ALBUMIN 3.2 g/dL (3.5-5.0); BILIRUBIN,TOTAL 0.2 mg/dL (0.2-1.0); TOTAL PROTEIN, SERUM 6.4 g/dL (6.0-8.3)
[2021-03-02 16:31] LABS: BAND NEUTROPHILS % (MANUAL) 5 % (0-2); BASOPHILS % (MANUAL) 1 % (0-2); EOSINOPHILS % (MANUAL) 2 % (1-6); LYMPHOCYTES % (MANUAL) 7 % (22-44); MONOCYTES % (MANUAL) 13 % (2-9); REACTIVE LYMPHOCYTES 18 % (0-0); SEGMENTED NEUTROPHILS % 54 % (40-70)
[2021-03-02 16:32] LABS: MAN.DIFF COMMENT-IMPRESSION MANUAL DIFFERENTIAL
[2021-03-02 16:38] LABS: PLATELET MORPHOLOGY COMMENT LARGE PLTS PRESENT
[2021-03-02 17:45] VITALS: BP 146/73
[2021-03-02] MEDS ORDERED: PRED5TAB PO (17:47)
== END 2021-03-02 18:06 | disposition home or self-care (01) ==
LOC: EDH 14:18
DX: J40 Bronchitis, not specified as acute or chronic (principal); Z20.822 Contact with and (suspected) exposure to COVID-19; J44.9 Chronic obstructive pulmonary disease, unspecified; Z88.0 Allergy status to penicillin; Z88.5 Allergy status to narcotic agent; Z79.84 Long term (current) use of oral hypoglycemic drugs; Z79.899 Other long term (current) drug therapy
CPT/HCPCS: 36415; 71045; 80053; 83880; 85025; 87635; 87804 ×2; 87880; 99284; C9803

== ENCOUNTER 2021-08-26 19:46 | Emergency (ER) | payer MEDICARE ==
[~2021-08-26] VITALS: Ht 167.6 cm; Wt 88.9 kg
[~2021-08-26 19:46] MED LIST changes: +PRED5TAB PO
[2021-08-26 20:11] LABS: APPEARANCE,URINE Cloudy (CLEAR); BILIRUBIN,URINE Negative (NEGATIVE); COLOR,URINE Yellow (YELLOW); GLUCOSE, URINE (UA) Negative (NEGATIVE); KETONES,URINE Negative (NEGATIVE); LEUKOCYTE ESTERASE ,URINE Large (NEGATIVE); NITRATE,URINE Negative (NEGATIVE); OCCULT BLOOD,URINE Negative (NEGATIVE); PH,URINE 5.5 (5.0-8.0); PROTEIN,URINE Negative (NEGATIVE); UROBILINOGEN,URINE 0.2 mg/dL (0.2-1.0)
[2021-08-26 20:18] LABS: RBC,URINE 0-1 /HPF (0-1)
[2021-08-26 20:19] LABS: BACTERIA,URINE Few /HPF (None Seen); SQUAMOUS EPITHELIAL CELL,UR Rare /HPF (0-2)
[2021-08-26 20:57] LABS: BASOPHILS % (AUTO) 0.6 % (0.0-5.0); HEMATOCRIT 33.4 % (36-48); LYMPHOCYTES % (AUTO) 32.1 % (21.0-51.0); MEAN CORPUSCULAR HEMOGLOBIN 26.9 pg (27.0-33.0); MEAN CORPUSCULAR HGB CONC 31.1 g/dL (32.0-36.0); MEAN CORPUSCULAR VOLUME 86.3 fL (79-99); MONOCYTES % (AUTO) 8.2 % (3.0-13.0); NEUTROPHILS % (AUTO) 56.8 % (40.0-77.0); PLATELET COUNT (AUTO) 206 K/uL (130-400); RED BLOOD CELL COUNT(AUTO) 3.87 MIL/uL (4.00-5.50); RED CELL DISTRIBUTION WIDTH 14.5 % (11.0-15.5); WHITE BLOOD COUNT (AUTO) 7.1 K/uL (4.8-10.8)
[2021-08-26] MEDS ORDERED: ONDANSETRON 4MG INJ IVP ONE (21:00)
[2021-08-26] MEDS ORDERED: 0.9%NACL 1000ML 1,000 ML IV ONE (21:00)
[2021-08-26] MEDS ORDERED: KETOROLAC 15MG/ML VIAL (15MG/ML) IV ONE (21:00)
[2021-08-26] MEDS ORDERED: CEFTRIAXONE 1G VIAL IVP ONE (21:00)
[2021-08-26 21:05] VITALS: BP 117/74
[2021-08-26 21:07] LABS: POTASSIUM 3.9 mmol/L (3.5-5.1)
[2021-08-26 21:12] LABS: ALBUMIN 3.5 g/dL (3.5-5.0); BILIRUBIN,TOTAL 0.2 mg/dL (0.2-1.0); TOTAL PROTEIN, SERUM 6.9 g/dL (6.0-8.3)
[2021-08-26] MEDS ORDERED: CEPH500B PO (21:53)
[2021-08-26] MEDS ORDERED: ACET-66 PO (21:53)
[2021-08-26] MEDS ORDERED: ONDA4TAB10 PO (21:53)
== END 2021-08-26 22:05 | disposition home or self-care (01) ==
LOC: EDH 19:46
DX: N39.0 Urinary tract infection, site not specified (principal); E03.9 Hypothyroidism, unspecified; E11.9 Type 2 diabetes mellitus without complications; E78.00 Pure hypercholesterolemia, unspecified; I10 Essential (primary) hypertension; F31.9 Bipolar disorder, unspecified; E86.0 Dehydration; Z88.0 Allergy status to penicillin; Z88.5 Allergy status to narcotic agent; Z79.1 Long term (current) use of non-steroidal anti-inflammatories (NSAID); Z79.52 Long term (current) use of systemic steroids; Z79.84 Long term (current) use of oral hypoglycemic drugs; Z79.899 Other long term (current) drug therapy
CPT/HCPCS: 36415; 80053; 81001; 85025; 87077; 87088; 87186; 96361; 96374; 96375; 99284; J0696; J1885; J2405; J7030

== ENCOUNTER 2022-03-25 21:25 | Emergency (ER) | payer MEDICARE ==
[~2022-03-25] VITALS: Ht 167.6 cm; Wt 88.0 kg
[~2022-03-25 21:25] MED LIST changes: +ACET-66 PO; +CEPH500B PO; +ONDA4TAB10 PO
[2022-03-25 22:14] LABS: BASOPHILS % (AUTO) 0.4 % (0.0-5.0); EOSINOPHILS % (AUTO) 2.9 % (0.0-8.0); HEMATOCRIT 32.2 % (36-48); LYMPHOCYTES % (AUTO) 24.4 % (21.0-51.0); MEAN CORPUSCULAR HEMOGLOBIN 26.6 pg (27.0-33.0); MEAN CORPUSCULAR HGB CONC 31.4 g/dL (32.0-36.0); MEAN CORPUSCULAR VOLUME 84.7 fL (79-99); MONOCYTES % (AUTO) 10.5 % (3.0-13.0); NEUTROPHILS % (AUTO) 61.4 % (40.0-77.0); PLATELET COUNT (AUTO) 161 K/uL (130-400); RED CELL DISTRIBUTION WIDTH 14.4 % (11.0-15.5); WHITE BLOOD COUNT (AUTO) 4.8 K/uL (4.8-10.8)
[2022-03-25 22:26] LABS: CREATININE 1.1 mg/dL (0.5-1.5); POTASSIUM 3.9 mmol/L (3.5-5.1)
[2022-03-25] MEDS ORDERED: IPRATROPIUM/ALBUTEROL SULFATE 3 ML SOLUTION IH ONE (22:30)
[2022-03-25] MEDS ORDERED: DEXAMETHASONE SOD PHOSPHATE 4 MG/ML 1ML VIAL IVP ONE (22:30)
[2022-03-25 22:31] LABS: ALBUMIN 3.4 g/dL (3.5-5.0); TOTAL PROTEIN, SERUM 6.9 g/dL (6.0-8.3)
[2022-03-25] MEDS ORDERED: DEXAMETHASONE SOD PHOSPHATE 4 MG/ML 1ML VIAL ONE (22:35)
[2022-03-25 22:44] LABS: B-TYPE NATRIURETIC PEPTIDE 28 pg/mL (0-100)
[2022-03-25] MEDS ORDERED: LEVA1.2525 IH (23:23)
[2022-03-25 23:27] VITALS: BP 143/70
[2022-03-30] MEDS ORDERED: GABA300C PO (03:52)
[2022-03-30] MEDS ORDERED: IBUP-1493 PO (03:52)
== END 2022-03-25 23:57 | disposition home or self-care (01) ==
LOC: EDH 21:25
DX: J44.0 Chronic obstructive pulmonary disease with (acute) lower respiratory infection (principal); J18.9 Pneumonia, unspecified organism; J44.1 Chronic obstructive pulmonary disease with (acute) exacerbation; E11.9 Type 2 diabetes mellitus without complications; E03.9 Hypothyroidism, unspecified; E78.00 Pure hypercholesterolemia, unspecified; F32.A Depression, unspecified; I10 Essential (primary) hypertension; Z79.52 Long term (current) use of systemic steroids; Z79.84 Long term (current) use of oral hypoglycemic drugs; Z79.899 Other long term (current) drug therapy; Z88.0 Allergy status to penicillin; Z88.5 Allergy status to narcotic agent; Z20.822 Contact with and (suspected) exposure to COVID-19; Z98.890 Other specified postprocedural states
CPT/HCPCS: 99285; 96374; 71046; 87635; 80053; 83880; 85025; 87804 ×2; 36415; 93005; 94640; J1100; C9803

== ENCOUNTER 2022-08-30 07:12 | Emergency (ER) | payer OTHER ==
[~2022-08-30] VITALS: Ht 167.6 cm; Wt 86.6 kg
[~2022-08-30 07:12] MED LIST changes: -ACET-66 PO; -AMLO-258 PO; +ASPI-1197 PO; +BUDE10.22 IH; -BUSP15 PO; -CARV25TA PO; -CEPH500B PO; -DIPH25 PO; +DOXY100C5 PO; +ERGO500093 PO; +GABA300C PO; +IBUP-1493 PO; +KETO10 PO; +LEVA1.2525 IH; -LOSA100T58 PO; +LOSA100T59 PO; -METF-444 PO; -METO10TA41 PO; -MONT-39 PO; -ONDA4TAB10 PO; -PRED5TAB PO; +PREDAOS OD; +QUET150T15 PO; +ROSU10TA28 PO; +SEMA3TAB4 PO; +SIME180C68 PO
[2022-08-30] MEDS ORDERED: SULF1TAB42 PO (07:35)
[2022-08-30 07:45] LABS: APPEARANCE,URINE TURBID (CLEAR); BILIRUBIN,URINE NEGATIVE (NEGATIVE); COLOR,URINE LIGHT-ORANGE (YELLOW); GLUCOSE, URINE (UA) NEGATIVE (NEGATIVE); KETONES,URINE NEGATIVE (NEGATIVE); LEUKOCYTE ESTERASE ,URINE 500 Leu/uL (NEGATIVE); NITRATE,URINE 2+ (NEGATIVE); OCCULT BLOOD,URINE MODERATE (NEGATIVE); PROTEIN,URINE 30 mg/dL (NEGATIVE); UROBILINOGEN,URINE 0.2 mg/dL (0.2-1.0)
[2022-08-30 08:08] VITALS: BP 148/78
[2022-08-30 08:18] LABS: BACTERIA,URINE MANY /HPF (None Seen); RBC,URINE 51-100 /HPF (0-1); SQUAMOUS EPITHELIAL CELL,UR MOD /HPF (0-2); TRANSITIONAL EPI CELLS,URINE FEW /HPF (None Seen); WBC,URINE TNTC /HPF (0-1)
== END 2022-08-30 08:08 | disposition home or self-care (01) ==
LOC: EDH 07:12
DX: N39.0 Urinary tract infection, site not specified (principal); E11.9 Type 2 diabetes mellitus without complications; E78.00 Pure hypercholesterolemia, unspecified; E03.9 Hypothyroidism, unspecified; I10 Essential (primary) hypertension; Z79.1 Long term (current) use of non-steroidal anti-inflammatories (NSAID); Z79.51 Long term (current) use of inhaled steroids; Z79.82 Long term (current) use of aspirin; Z79.899 Other long term (current) drug therapy; Z88.0 Allergy status to penicillin; Z88.5 Allergy status to narcotic agent
CPT/HCPCS: 81001; 87077; 87088; 87186

== ENCOUNTER 2022-11-28 10:10 | Emergency (ER) | payer MEDICARE ==
[~2022-11-28] VITALS: Ht 167.6 cm; Wt 88.5 kg
[~2022-11-28 10:10] MED LIST changes: -SIME180C68 PO; +SULF1TAB42 PO; +[UNRECOGNIZED DRUG - CODE] PO
[2022-11-28 10:50] LABS: INFLUENZA TYPE A Negative For Type A (NEGATIVE); INFLUENZA TYPE B Negative For Type B (NEGATIVE)
[2022-11-28 10:55] LABS: SARS-CoV-2, RNA, NAAT NEGATIVE SARS CoV-2 (NEGATIVE)
[2022-11-28 11:10] LABS: BASOPHILS # (AUTO) 0.04 K/uL (0.00-0.20); BASOPHILS % (AUTO) 0.6 % (0.0-5.0); EOSINOPHILS % (AUTO) 1.6 % (0.0-8.0); HEMATOCRIT 37.1 % (36-48); IMMATURE GRANULOCYTE ABSOLUTE 0.03 K/uL (0-1); LYMPHOCYTES # (AUTO) 2.4 K/uL (1.0-4.8); LYMPHOCYTES % (AUTO) 36.9 % (21.0-51.0); MEAN CORPUSCULAR HEMOGLOBIN 28.5 pg (27.0-33.0); MEAN CORPUSCULAR HGB CONC 33.7 g/dL (32.0-36.0); MEAN CORPUSCULAR VOLUME 84.5 fL (79-99); MONOCYTES # (AUTO) 0.5 K/uL (0.1-1.0); MONOCYTES % (AUTO) 7.8 % (3.0-13.0); NEUTROPHILS # (AUTO) 3.4 K/uL (1.8-7.7); NEUTROPHILS % (AUTO) 52.6 % (40.0-77.0); PLATELET COUNT (AUTO) 187 K/uL (130-400); RED BLOOD CELL COUNT(AUTO) 4.39 MIL/uL (4.00-5.50); RED CELL DISTRIBUTION WIDTH 18.2 % (11.0-15.5); WHITE BLOOD COUNT (AUTO) 6.4 K/uL (4.8-10.8)
[2022-11-28 11:18] LABS: CREATININE 0.8 mg/dL (0.5-1.5); POTASSIUM 4.3 mmol/L (3.5-5.1)
[2022-11-28 11:32] LABS: RAPID GROUP A STREP NEGATIVE (NEGATIVE)
[2022-11-28 11:32] LABS: ALBUMIN 3.9 g/dL (3.5-5.0); BILIRUBIN,TOTAL 0.3 mg/dL (0.2-1.0); TOTAL PROTEIN, SERUM 7.5 g/dL (6.0-8.3)
[2022-11-28 13:16] LABS: APPEARANCE,URINE CLEAR (CLEAR); BILIRUBIN,URINE NEGATIVE (NEGATIVE); COLOR,URINE COLORLESS (YELLOW); GLUCOSE, URINE (UA) NEGATIVE (NEGATIVE); KETONES,URINE NEGATIVE (NEGATIVE); LEUKOCYTE ESTERASE ,URINE NEGATIVE Leu/uL (NEGATIVE); NITRATE,URINE NEGATIVE (NEGATIVE); OCCULT BLOOD,URINE NEGATIVE (NEGATIVE); PH,URINE 5.5 (5.0-8.0); PROTEIN,URINE NEGATIVE (NEGATIVE); UROBILINOGEN,URINE 0.2 mg/dL (0.2-1.0)
[2022-11-28 13:17] LABS: ADD UA MICROSCOPIC NO
[2022-11-28] MEDS ORDERED: ONDA4TAB10 PO (13:48)
[2022-11-28] MEDS ORDERED: GUAI200T5 PO (13:48)
[2022-11-28] MEDS ORDERED: AZIT500T4 PO (13:48)
[2022-11-28 13:57] VITALS: BP 161/71; PULSE 68; RESP 18; O2SAT 98
[2022-11-28] MEDS ORDERED: ACETAMINOPHEN 325 MG TAB PO ONE (14:30)
== END 2022-11-28 14:19 | disposition home or self-care (01) ==
LOC: EDH 10:10
DX: J32.9 Chronic sinusitis, unspecified (principal); I10 Essential (primary) hypertension; E11.9 Type 2 diabetes mellitus without complications; E03.9 Hypothyroidism, unspecified; E78.00 Pure hypercholesterolemia, unspecified; I11.9 Hypertensive heart disease without heart failure; Z20.822 Contact with and (suspected) exposure to COVID-19; Z79.82 Long term (current) use of aspirin; Z79.899 Other long term (current) drug therapy; Z90.710 Acquired absence of both cervix and uterus; Z98.890 Other specified postprocedural states; Z88.0 Allergy status to penicillin; Z88.5 Allergy status to narcotic agent
CPT/HCPCS: 99285; 71045; 87635; 82550; 83874; 84484; 80053; 83690; 85025; 87880; 87804 ×2; 81003; 36415; 93005; C9803

== ENCOUNTER 2023-03-07 21:53 | Emergency (ER) | payer MEDICARE ==
[~2023-03-07] VITALS: Ht 167.6 cm; Wt 88.9 kg
[~2023-03-07 21:53] MED LIST changes: +AZIT500T4 PO; +GUAI200T5 PO; +ONDA4TAB10 PO
[2023-03-07 23:44] VITALS: BP 211/94; PULSE 71; RESP 18
== END 2023-03-08 00:42 | disposition left against medical advice (07) ==
LOC: EDH 21:53
DX: R51.9 Headache, unspecified (principal); Z53.21 Procedure and treatment not carried out due to patient leaving prior to being seen by health care provider
CPT/HCPCS: 99281

== ENCOUNTER 2023-05-07 06:37 | Emergency (ER) | payer MEDICARE, OTHER ==
[~2023-05-07] VITALS: Ht 162.6 cm; Wt 88.0 kg
[2023-05-07] MEDS: KETOROLAC 15MG/ML VIAL (15MG/ML) IV ONE (07:05)
[2023-05-07] MEDS: 0.9%NACL 1000ML 1,000 ML IV SCH (07:05)
[2023-05-07] MEDS: DIPHENHYDRAMINE HCL 25 MG CAPSULE PO ONE (07:05)
[2023-05-07 07:37] LABS: RAPID GROUP A STREP negative (NEGATIVE)
[2023-05-07 07:47] LABS: INFLUENZA TYPE A Negative For Type A (NEGATIVE); INFLUENZA TYPE B Negative For Type B (NEGATIVE)
[2023-05-07 07:50] LABS: SARS-CoV-2, RNA, NAAT POSITIVE SARS CoV-2 (NEGATIVE)
[2023-05-07] MEDS ORDERED: OXYM-30 NS (08:51)
[2023-05-07] MEDS ORDERED: ACET-66 PO (08:51)
[2023-05-07] MEDS ORDERED: FLUT16H NASAL (08:51)
[2023-05-07 08:57] VITALS: BP 151/76; PULSE 82; RESP 18; O2SAT 97
[2023-05-07] MEDS ORDERED: DOXY-252 PO (08:59)
[2023-05-07] MEDS ORDERED: CEFD300C3 PO (09:03)
== END 2023-05-07 09:13 | disposition home or self-care (01) ==
LOC: EDH 06:37
DX: U07.1 COVID-19 (principal); J32.9 Chronic sinusitis, unspecified; E03.9 Hypothyroidism, unspecified; E11.9 Type 2 diabetes mellitus without complications; I10 Essential (primary) hypertension; J44.9 Chronic obstructive pulmonary disease, unspecified; Z79.1 Long term (current) use of non-steroidal anti-inflammatories (NSAID); Z79.51 Long term (current) use of inhaled steroids; Z79.82 Long term (current) use of aspirin; Z79.890 Hormone replacement therapy; Z79.899 Other long term (current) drug therapy; Z88.0 Allergy status to penicillin; Z88.5 Allergy status to narcotic agent
CPT/HCPCS: 99284; 96374; 70450; 96361; 87635; 87880; 87804 ×2; Q0163; J7030; J1885

== ENCOUNTER 2023-07-24 10:05 | Emergency (ER) | payer OTHER ==
[~2023-07-24] VITALS: Ht 167.6 cm; Wt 86.2 kg
[~2023-07-24 10:05] MED LIST changes: +ACET-66 PO; +CEFD300C3 PO; +FLUT16H NASAL; +OXYM-30 NS
[2023-07-24 11:23] LABS: APPEARANCE,URINE CLEAR (CLEAR); BILIRUBIN,URINE NEGATIVE (NEGATIVE); COLOR,URINE LIGHT-YELLOW (YELLOW); GLUCOSE, URINE (UA) NEGATIVE (NEGATIVE); KETONES,URINE NEGATIVE (NEGATIVE); LEUKOCYTE ESTERASE ,URINE 250 Leu/uL (NEGATIVE); NITRATE,URINE NEGATIVE (NEGATIVE); OCCULT BLOOD,URINE NEGATIVE (NEGATIVE); PH,URINE 5.5 (5.0-8.0); PROTEIN,URINE NEGATIVE (NEGATIVE); UROBILINOGEN,URINE 0.2 mg/dL (0.2-1.0)
[2023-07-24] MEDS ORDERED: IOHEXOL-350 75 ML VIAL IV ONE (11:31)
[2023-07-24 11:40] LABS: BASOPHILS # (AUTO) 0.04 K/uL (0.00-0.20); BASOPHILS % (AUTO) 0.6 % (0.0-5.0); EOSINOPHILS # (AUTO) 0.09 K/uL (0.00-0.70); EOSINOPHILS % (AUTO) 1.4 % (0.0-8.0); HEMATOCRIT 37.3 % (36-48); IMMATURE GRANULOCYTE ABSOLUTE 0.01 K/uL (0-1); LYMPHOCYTES # (AUTO) 2.3 K/uL (1.0-4.8); LYMPHOCYTES % (AUTO) 36.4 % (21.0-51.0); MEAN CORPUSCULAR HEMOGLOBIN 29.3 pg (27.0-33.0); MEAN CORPUSCULAR VOLUME 86.1 fL (79-99); MONOCYTES # (AUTO) 0.7 K/uL (0.1-1.0); MONOCYTES % (AUTO) 10.6 % (3.0-13.0); NEUTROPHILS # (AUTO) 3.2 K/uL (1.8-7.7); NEUTROPHILS % (AUTO) 50.8 % (40.0-77.0); PLATELET COUNT (AUTO) 154 K/uL (130-400); RED BLOOD CELL COUNT(AUTO) 4.33 MIL/uL (4.00-5.50); RED CELL DISTRIBUTION WIDTH 13.6 % (11.0-15.5); WHITE BLOOD COUNT (AUTO) 6.2 K/uL (4.8-10.8)
[2023-07-24 11:43] LABS: ADD UA MICROSCOPIC YES
[2023-07-24 11:44] LABS: BACTERIA,URINE RARE /HPF (None Seen); RBC,URINE 0-1 /HPF (0-1); SQUAMOUS EPITHELIAL CELL,UR RARE /HPF (0-2)
[2023-07-24] MEDS: ONDANSETRON 4MG INJ IVP ONE (11:47)
[2023-07-24] MEDS: 0.9%NACL 1000ML 1,000 ML IV ONE (11:47)
[2023-07-24] MEDS: KETOROLAC 15MG/ML VIAL (15MG/ML) IV ONE (11:48)
[2023-07-24 11:49] LABS: CREATININE 0.9 mg/dL (0.5-1.0); POTASSIUM 3.6 mmol/L (3.5-5.1)
[2023-07-24 11:54] LABS: ALBUMIN 3.6 g/dL (3.5-5.0); BILIRUBIN,TOTAL 0.3 mg/dL (0.2-1.0); TOTAL PROTEIN, SERUM 6.9 g/dL (6.0-8.3)
[2023-07-24] MEDS ORDERED: NITR100C PO (13:54)
[2023-07-24] MEDS ORDERED: DICY20TA2 PO (13:54)
[2023-07-24] MEDS ORDERED: ONDA4TAB10 PO (13:54)
[2023-07-24] MEDS: NITROFURANTOIN MONOHYD/M-CRYST 100 MG CAPSULE PO ONE (13:54)
[2023-07-24 14:07] VITALS: BP 151/55; PULSE 64; RESP 18; O2SAT 94
== END 2023-07-24 14:18 | disposition home or self-care (01) ==
LOC: EDH 10:05
DX: A08.4 Viral intestinal infection, unspecified (principal); N30.00 Acute cystitis without hematuria; R11.2 Nausea with vomiting, unspecified; E86.0 Dehydration; R10.12 Left upper quadrant pain; R10.32 Left lower quadrant pain; I10 Essential (primary) hypertension; E78.00 Pure hypercholesterolemia, unspecified; E11.9 Type 2 diabetes mellitus without complications; F32.A Depression, unspecified; Z88.0 Allergy status to penicillin; Z88.5 Allergy status to narcotic agent; Z79.899 Other long term (current) drug therapy; Z90.710 Acquired absence of both cervix and uterus
CPT/HCPCS: 99284; 74177; 96374; 96361; 80053; 83690; 85025; 87088; 81001; 36415; 96376; J7030; J2405; J1885; Q9967

== ENCOUNTER 2024-03-18 16:33 | Emergency (ER) | payer OTHER ==
[~2024-03-18] VITALS: Ht 167.6 cm; Wt 84.4 kg
[~2024-03-18 16:33] MED LIST changes: +DICY20TA2 PO; +NITR100C PO; +ONDA-243 PO; -ONDA4TAB10 PO; -ROSU10TA28 PO; +ROSU10TA72 PO
[2024-03-18 16:35] VITALS: TEMP 98.2
--- NOTE | 2024-03-18 16:45 | EKG ---
[facility] Test Date: 2024-03-18 Test Time: 16:44:14 Pat Name: JORGE ALVARADO Department: ED Room: Gender: F Field Service Representative: [id number] : 1945 Requested By: SHEKHAR REYNOLDS Order Number: [id number] Reading MD: Grant Ruffin Measurements Intervals [place] Rate: 85 P: -25 NV: 196 QRS: -44 QRSD: 106 T: 132 QT: 367 QTc: 436 Interpretive Statements Sinus rhythm LVH with secondary repolarization abnormality Anterior Q waves, possibly due to LVH Compared to ECG 11/28/2022 10:22:04 Early repolarization now present Atrial premature complex(es) no longer present T-wave abnormality no longer present Possible ischemia no longer present Electronically Signed On 03-19-2024 21:07:20 BOND WRITER by Grant Ruffin Please click the below link to view image of tracing.
--- NOTE | 2024-03-18 16:58 | NUR ---
PT JUST NOW PLACED IN MY ED BED 19
--- NOTE | 2024-03-18 17:08 | ERN ---
General Chief Complaint: Multiple Complaints Stated Complaint: HEADACHE, SICK STOMACH,NECK PAIN Time Seen by MD: 16:36 Source: patient History of Present Illness Initial Comments Patient is a 78-year-old female coming in to be evaluated for abdominal pain. Per patient the symptoms has been ongoing for two weeks. Along with the abdominal discomfort patient states he has been having on and off headaches. Allergies: Coded Allergies: Penicillins (Unverified Allergy, Severe, 04/29/15) SWELLING DIFFUCULTY BREATH RASH codeine (Unverified Allergy, Unknown, 02/03/19) Home Meds Active Scripts Ondansetron (Ondansetron Odt) 4 Mg Tab.rapdis, 4 MG PO Q6HPRN PRN for nausea, #16 TAB 0 Refills Prov:CHARISSE APARICIO BILLIARD TABLE ASSEMBLER 07/24/23 Nitrofurantoin Macrocrystal (Nitrofurantoin) 100 Mg Capsule, 100 MG PO BID for 7 Days, #14 CAP Prov:CHARISSE APARICIO BILLIARD TABLE ASSEMBLER 07/24/23 Dicyclomine HCl (Bentyl) 20 Mg Tab, 20 MG PO Q6HPRN for abd crAMPS, #30 TAB Prov:CHARISSE APARICIO BILLIARD TABLE ASSEMBLER 07/24/23 Cefdinir (Cefdinir) 300 Mg Capsule, 300 MG PO BID for 7 Days, #14 CAP Prov:PEG BUSTAMANTE MD 05/07/23 Acetaminophen (Acetaminophen) 500 Mg Tablet, 1000 MG PO Q6HPRN PRN for PAIN, #30 TAB Prov:PEG BUSTAMANTE MD 05/07/23 Fluticasone Propionate (Flonase Nasal [place]) 50 Mcg/Actuation [place], 2 SPRAYS NASAL BID for 7 Days, #1 SPRAY in each nostril Prov:PEG BUSTAMANTE MD 05/07/23 Oxymetazoline HCl (Oxymetazoline HCl) 0.05 % [place], 2 SPRAYS NS BID PRN for NASAL CONGESTION for 3 Days, #1 SPRAY in each nostril Prov:PEG BUSTAMANTE MD 05/07/23 Guaifenesin (Guaifenesin) 200 Mg Tablet, 200 MG PO BID, #10 TAB 0 Refills Prov:MAG ZAMBRANO BILLIARD TABLE ASSEMBLER 11/28/22 Ondansetron (Ondansetron Odt) 4 Mg Tab.rapdis, 4 MG PO Q6HPRN PRN for nausea, #15 TAB 0 Refills Prov:PARKERMAG JHA Skylar BILLIARD TABLE ASSEMBLER 11/28/22 Azithromycin (Azithromycin) 500 Mg Tablet, 500 MG PO 2 on day 1, then dustin for 5 Days, #6 TAB 0 Refills Prov:MAG ZAMBRANO BILLIARD TABLE ASSEMBLER 11/28/22 Sulfamethoxazole/Trimethoprim (Bactrim Ds Tablet) 1 Each Tablet, 1 TAB PO BID for uti for 5 Days, #10 TAB Prov:QUYEN MATOS MD 08/30/22 Aspirin (Aspirin) 81 Mg Tab.chew, 81 MG PO DAILY for 30 Days, #30 TAB.CHEW Prov:CLAUDINE HERNANDEZ 06/05/22 Ketorolac Tromethamine (Toradol) 10 Mg Tab, 10 MG PO Q6H PRN for PAIN LEVEL 6 TO 10, #16 TAB Prov:CLAUDINE HERNANDEZ 06/05/22 Budesonide/Formoterol Fumarate (Symbicort 80-4.5 Mcg Inhaler) 10.2 Gm Inhr, 10.2 GM IH BID for 30 Days, #1 INH Prov:CLAUDINE HERNANDEZ 06/05/22 Doxycycline Hyclate (Doxycycline Hyclate) 100 Mg Capsule, 100 MG PO BID for 5 Days, #10 CAP Prov:CLAUDINE HERNANDEZ 06/05/22 Ibuprofen (Motrin/Advil) 800 Mg Tab, 800 MG PO TID, #30 TAB Prov:ARABELLA MÁRQUEZ MD 03/30/22 Gabapentin (Neurontin) 300 Mg Capsule, 300 MG PO TID, #60 CAP Prov:ARABELLA MÁRQUEZ MD 03/30/22 Levalbuterol HCl (Xopenex) 1.25 Mg/3 Ml Vial.neb, 1.25 MG IH TID for copd for 10 Days, #30 INH Prov:AURA HASSAN 03/25/22 Pantoprazole Sodium (Protonix) 40 Mg Ectab, 40 MG PO DAILY for 30 Days, #30 TAB.EC Prov:JESSICA KELLER 07/30/19 Reported Medications Prednisolone Acetate (Pred Forte 1% Ophth Susp) 20 Drop/Ml Opsus, 20 DROP OD DAILY, DROP 06/03/22 Simethicone (Anti-Gas) 180 Mg Capsule, 180 MG PO PM PRN for GI GAS, CAP 06/03/22 Semaglutide (Rybelsus) 3 Mg Tablet, 3 MG PO DAILY, TAB 06/03/22 Ergocalciferol (Vitamin D2) (Vitamin D2) 1,250 Mcg Capsule, 1250 MCG PO QWEEK, CAP 06/03/22 Rosuvastatin Calcium (Rosuvastatin Calcium) 10 Mg Tablet, 10 MG PO HS, TAB 06/03/22 Quetiapine Fumarate (Quetiapine Fumarate ER) 150 Mg Tab.er.24h, 150 MG PO DAILY, TAB 06/03/22 Levothyroxine Sodium (Levothyroxine Sodium) 88 Mcg Tablet, 88 MCG PO DAILY, TAB 04/12/17 Tizanidine HCl (Tizanidine HCl) 4 Mg Tablet, 4 MG PO HS, TAB 10/05/16 Alendronate Sodium (Alendronate Sodium) 70 Mg Tablet, 70 MG PO QWEEK, TAB 10/05/16 Quetiapine Fumarate (Quetiapine Fumarate) 100 Mg Tablet, 100 MG PO HS, TAB 03/01/16 Liothyronine Sodium (Liothyronine Sodium) 5 Mcg Tablet, 12.5 MCG PO BID 09/04/15 Losartan Potassium (Losartan Potassium) 100 Mg Tablet, 100 MG PO HS 09/04/15 Past Medical History Past Medical History: Depression, Diabetes-Type II, GERD, High Cholesterol, Hypertension Medical History Other: THYROID, SINUS INFECTIONS Past Surgical History: Hysterectomy, Surgical History Other: LT HIP SX, BACK SX Family History Family History: HTN Social History Social History: Negative, Lives with family Female( History) History: Not Applicable ROS Dictation CONSTITUTIONAL: No chills, no fever, no weakness, no diaphoresis, no malaise. HEAD/FACE: No signs of trauma. EENT: No eye pain, no blurred vision, no tearing, no double vision, no ear pain, no ear discharge, no nose pain, no nasal congestion, no throat pain, no throat swelling, no mouth pain. RESPIRATORY: No cough, no orthopnea, no SOB, no stridor, no wheezing. CARDIOVASCULAR: No chest pain, no edema, no palpitations, no syncope. GASTROINTESTINAL/ABDOMINAL: No abdominal pain, no constipation, no diarrhea, no nausea, no vomiting. GENITOURINARY: No abnormal discharge, no dysuria, no frequent urination, no hematuria. No complaints of pain in the genitals. MUSCULOSKELETAL: No back pain, no gout, no joint pain, no joint swelling, no muscle pain, no muscle stiffness, no neck pain. INTEGUMENTARY: No change in color, no change in hair/nails, no dryness, no lesion, no lumps, no rash. NEUROLOGICAL/PSYCH: No anxiety, not depressed, no emotional problem, no head ache, no numbness, no pre-existing deficit, no history of seizures, no tremors, no weakness. HEMATOLOGIC/LYMPHATIC: Not anemic, no history of blood clots, no apparent bleeding, no bruising, glands not swollen. All Systems Negative, Except as Noted. Physical Exam Physical Exam Dictation VITAL SIGNS: Reviewed. GENERAL APPEARANCE: Alert, oriented x3, no acute distress, obese. HEAD AND FACE: Non-traumatic. EYES: PERRL, pink conjunctivas, eyelid no trauma, anterior chamber clear. EARS: Pinnas intact and no signs of trauma or erythema. Ear canals clear and no discharge. TMs no erythema. NOSE: No discharge, no bleeding. OROPHARYNX: Mouth normal, teeth no caries, tongue pink. Pharynx clear, no erythema. Tonsils no exudates, no abscesses noted. Mucous membrane moist. NECK: Supple, non-tender, no thyromegaly, no masses, no JVD, no bruits. BREAST: Deferred. CHEST: No tenderness, no crepitus, no paradoxical movement, no retractions. LUNGS: Clear, well-ventilated, symmetric, no rales, no wheezing, no rhonchi, no stridor, good breath sounds bilaterally. HEART: Regular rate, regular rhythm, no murmur, no gallops. VASCULAR: No peripheral edema. ABDOMEN: Soft, positive bowel sounds, nondistended, no guarding, generalized tender, no rebound, no masses no hepatomegaly, no splenomegaly, no Laughlin's sign, no hernias. RECTAL: Deferred. GENITAL: Deferred. NEUROLOGICAL: Normal speech, gross motor function intact, gross sensory function intact. MUSCULOSKELETAL: Neck nontender, full range of motion, back nontender, full range of motion. EXTREMITIES: Nontender, full range of motion. SKIN: Color pink, dry, no turgor, no rash, no lacerations, no abrasions, no contusions. LYMPHATICS: Deferred. Results Laboratory and Microbiology Lab and Micro Result Laboratory Tests Test 03/18/24 17:24 03/18/24 18:12 03/18/24 18:26 White Blood Count 6.1 K/uL (4.8-10.8) Red Blood Count 4.04 MIL/uL (4.00-5.50) Hemoglobin 11.8 g/dL (12.0-16.0) L Hematocrit 35.9 % (36-48) L Mean Corpuscular Volume 88.9 fL (79-99) Mean Corpuscular Hemoglobin 29.2 pg (27.0-33.0) Mean Corpuscular Hemoglobin Concent 32.9 g/dL (32.0-36.0) Red Cell Distribution Width 14.2 % (11.0-15.5) Platelet Count 153 K/uL (130-400) Mean Platelet Volume 12.4 fL (7.5-10.5) H Immature Granulocyte % (Auto) 0.3 % (0-1) Neutrophils (%) (Auto) 58.2 % (40.0-77.0) Lymphocytes (%) (Auto) 29.3 % (21.0-51.0) Monocytes (%) (Auto) 9.8 % (3.0-13.0) Eosinophils (%) (Auto) 1.7 % (0.0-8.0) Basophils (%) (Auto) 0.7 % (0.0-5.0) Neutrophils # (Auto) 3.5 K/uL (1.8-7.7) Lymphocytes # (Auto) 1.8 K/uL (1.0-4.8) Monocytes # (Auto) 0.6 K/uL (0.1-1.0) Eosinophils # (Auto) 0.10 K/uL (0.00-0.70) Basophils # (Auto) 0.04 K/uL (0.00-0.20) Absolute Immature Granulocyte (auto 0.02 K/uL (0-1) Nucleated Red Blood Cells 0.0 % (0.0-0.19) Prothrombin Time 10.2 SEC (9.6-11.6) Prothromb Time International Ratio <= 0.93 (0.85-1.15) Activated Partial Thromboplast Time 27.9 SEC (26.3-35.5) Sodium Level 138 mmol/L (136-145) Potassium Level 3.4 mmol/L (3.5-5.1) L Chloride Level 104 mmol/L (101-111) Carbon Dioxide Level 30 mmol/L (21-32) Blood Urea Nitrogen 12 mg/dL (7-18) Creatinine 0.9 mg/dL (0.5-1.0) Glomerular Filtration Rate Calc 66 mL/min (>90) Random Glucose 135 mg/dL (70-105) H Total Calcium 8.9 mg/dL (8.5-10.1) Magnesium Level 1.90 mg/dL (1.80-2.40) Total Creatine Kinase 91 U/L (21-232) # Troponin I High Sensitivity 31 ng/L (4-50) B-Type Natriuretic Peptide 26 pg/mL (0-100) Influenza Type A Antigen Negative For Type A Influenza Type B Antigen Negative For Type B SARS-CoV-2, RNA, NAAT NEGATIVE SARS CoV-2 Urine Color COLORLESS (YELLOW) Urine Appearance CLEAR (CLEAR) Urine pH 5.5 (5.0-8.0) Urine Specific [place] 1.005 (1.001-1.031) Urine Protein NEGATIVE mg/dL (NEGATIVE) Urine Glucose (UA) NEGATIVE mg/dL (NEGATIVE) Urine Ketones NEGATIVE mg/dL (NEGATIVE) Urine Occult Blood NEGATIVE (NEGATIVE) Urine Nitrate NEGATIVE (NEGATIVE) Urine Bilirubin NEGATIVE mg/dL (NEGATIVE) Urine Urobilinogen 0.2 mg/dL (0.2-1.0) Urine Leukocyte Esterase 250 Tutu/uL (NEGATIVE) H Urine RBC 0-1 /HPF (0-1) Urine WBC 6-10 /HPF (0-1) H Urine Squamous Epithelial Cells RARE /HPF (0-2) Urine Bacteria None /HPF (None Seen) Labs Reviewed?: Yes EKG/XRAY/US/CT/MRI EKG Comment 03/18/2024 time 4:44 p.m. Ventricular rate [address] wave elevation or depression X-RAY Comment [place] [id number] [address] IMAGING REPORT Signed PATIENT: JORGE ALVARADO MR#: [id number] : 1945 SEX: F AGE: 78 LOCATION: [facility] ORDER 02 STATUS: REG ER HOSPITAL REPORT#: [id number] SERVICE 99 REASON: cp ORDERING PHYSICIAN: SHEKHAR REYNOLDS MD PROCEDURE: CXR1VW - CHEST 1VW Exam Type: CHEST 1VW Clinical Information: cp Comparison: None Findings: The lungs are clear of infiltrates. The heart is enlarged. Bony and soft tissue structures of the chest wall are unremarkable. IMPRESSION: Cardiomegaly. Clear lungs. DICTATED BY: YELITZA SCHUMACHER MD DATE: 03/18/241736 ELECTRONICALLY SIGNED BY: YELITZA SCHUMACHER MD DATE: 03/18/241739 [place] [address] IMAGING REPORT Signed PATIENT: JORGE ALVARADO MR#: [id number] : 1945 SEX: F AGE: 78 LOCATION: [facility] ORDER 02 STATUS: REG ER REPORT#: [id number] SERVICE 99 REASON: abd pain ORDERING PHYSICIAN: SHEKHAR REYNOLDS MD PROCEDURE: ABD PEL WO - CT ABDOMEN/PELVIS W/O CONTRAST Exam Type: CT ABDOMEN/PELVIS W/O CONTRAST Clinical Information: abd pain Comparison: None CT Dose Index (CTDI): 10.20 mGy Dose Length Product (DLP): 530.00 total mGy-cm PROTOCOL: Routine noncontrast helical scanning of the abdomen and pelvis was performed at 5mm collimation. Findings: No evidence of nephro or ureterolithiasis is found. No hydronephrosis or ureteral dilatation is seen. The lung bases are clear. The stomach is unremarkable. It shows no wall thickening. No gross ulceration is seen. It is not overly distended. There are no surrounding inflammatory changes. No wall lesions are identified to suggest cancer. The spleen is unremarkable. It is not enlarged. The pancreas shows normal anatomy. It is not fatty replaced. It shows no lesions. The pancreatic duct is not dilated. The gallbladder is unremarkable. It shows no cholelithiasis. The gallbladder wall is normal in thickness. There is no pericholecystic fluid. The is no acute or chronic inflammation noted. The adrenal glands are unremarkable. There is no enlargement. No lesions are noted. The liver is unremarkable. It shows no focal masses. The appendix is unremarkable. It shows no evidence of inflammation. No appendicolith is seen. The small bowel is unremarkable. There is no evidence of dilatation to suggest obstruction. No evidence of adynamic ileus is seen. There is no small bowel wall thickening to suggest enteritis. There is diverticulosis. There is no evidence of acute inflammation to suggest diverticulitis. The colon is otherwise unremarkable. The urinary bladder is unremarkable. There is no wall thickening to suggest tumor or inflammation. There are no intraluminal calculi. There are no diverticula. There is no evidence of chronic bladder outlet obstruction. There is no evidence of urinary bladder distention to suggest urinary retention. The other pelvic structures are unremarkable. The bony and vascular structures are unremarkable for the patient's age. Postoperative changes lumbar spine and status post left hip replacement. IMPRESSION: No acute pathology. This study was performed using dose reduction techniques to include automated exposure control and/or adjustment of the mA and/or kV according to patient size. DICTATED BY: YELITZA SCHUMACHER MD DATE: 03/18/241744 ELECTRONICALLY SIGNED BY: YELITZA SCHUMACHER MD DATE: 03/18/241748 [facility] MDM: Differential diagnosis: Abdominal pain, generalized body weakness, COVID, influenza, sepsis Rationale: Tests considered and ordered secondary to shared decision making include: Previous outside records reviewed: Old ER visits. Risk of complication and/or morbidity or mortality of patient management: None Medications-Per medication reconciliation Need for hospitalization: Patient does not meet criteria for hospitalization. Need for emergency major/minor surgery: No There are no social concerns with this patient. Prescription drug management Prescriptions will include symptomatic care Patient's prior external medical records from other ER visits were reviewed by me as indicated. Prior testing and results from previous visits were reviewed. Prior tests were taken into account with medical decision making and resource utilization, independent historian/historians were used to obtain complete medical history. I independently interpreted the test that were performed, results were reviewed by me and considered findings on radiology if ordered. Medical management and examination interpretation discussions were had by me with other qualified healthcare professionals as indicated for the patient's care. ED Course Orders Procedure Category Date Status Time 12 Lead Ekg Tracing- EKG 03/18/24 Complete Technical 16:39 Cbc With Differential LAB 03/18/24 Complete 17:00 Prothrombin Time With LAB 03/18/24 Complete INR 17:00 B-Type Natriuretic LAB 03/18/24 Complete Peptide 17:00 Chest 1vw RAD 03/18/24 Resulted 17:00 12 Lead Ekg Tracing- EKG 03/18/24 Logged Technical 17:00 Magnesium LAB 03/18/24 Complete 17:00 Creatine Kinase, Total LAB 03/18/24 Complete 17:00 Troponin I High LAB 03/18/24 Complete Sensitivity 17:00 Urinalysis Profile LAB 03/18/24 Complete 17:00 Partial LAB 03/18/24 Complete Thromboplastin Time 17:00 Basic Metabolic Panel LAB 03/18/24 Complete 17:00 Ct Abdomen/Pelvis W/O CT 03/18/24 Resulted Contrast 17:00 Culture Urine PASTORA 03/18/24 Logged 18:44 Covid Rna Naat LAB 03/18/24 Complete 18:44 Influenza Type A & B, LAB 03/18/24 Complete Rapid 18:44 Drug Screen Urine LAB 03/18/24 Logged 18:47 Ketorolac PHA 03/18/24 Complete Tromethamine 15mg/Ml 19:30 Ceftriaxone 1g Vial PHA 03/18/24 Complete (Rocephine 1g Inj) 19:30 Ondansetron 4mg Inj PHA 03/18/24 In Process (Zofran 4mg Inj) 20:00 Hydralazine 20mg Inj PHA 03/18/24 In Process (Apresoline 20mg In 20:00 Current Medications Medications (Trade) Dose Ordered Sig/Emelina Route PRN Reason Start Time Stop Time Status Last Admin Dose Admin Ceftriaxone Sodium (ROCEphine 1G INJ) 1 gm ONCE ONCE IVPB 03/18/24 19:30 03/18/24 19:49 DC Hydralazine HCl (APRESOLine 20MG INJ) 20 mg ONCE ONCE IV 03/18/24 20:00 03/18/24 20:01 Ketorolac Tromethamine (toRADol) 15 mg ONCE ONCE IM 03/18/24 19:30 03/18/24 19:49 DC Ondansetron HCl (zoFRAN 4MG INJ) 4 mg ONCE ONCE IVP 03/18/24 20:00 03/18/24 20:01 Vital Signs Date Time Temp Pulse Resp B/P (MAP) Pulse Ox O2 Delivery O2 Flow Rate FiO2 03/18/24 18:38 67 19 208/84 95 Room Air* 0 21 03/18/24 17:11 87 18 149/89 97 Room Air* 0 21 03/18/24 16:35 98.2 89 14 203/91 97 Room Air 0 DX & DISP Disposition: Discharge Departure Impression: Primary Impression: Abdominal cramping Additional Impressions: Nausea & vomiting, UTI (urinary tract infection), Gastritis Condition: Stable Additional Instructions: Patient and the caregiver have been informed of all the diagnostic tests and the imaging conducted during the today's visit to the emergency room and has ve rbalized understanding of the results I have personally reviewed and interpreted all diagnostic exams performed here in the ER today as well as the vital signs documented by the nursing staff. The patient is now being discharged to home and should follow up with the primary care physician or the specialist as directed by the ER staff. Follow-up with primary care provider in 1 to 2 days. Take medications as directed here in the emergency room. Okay to continue home medications unless otherwise discussed during your visit in the emergency room today. Return to your nearest emergency room if symptoms worsen or if there is no improvement. Call 911 if you need immediate assistance. Take Tylenol or Motrin [id number] as needed and if no contraindications are present. Increase oral hydration. A wound culture or urine culture was ordered here in the emergency room department please follow-up with primary care provider and advise them to get repeat ports from our facility. If you had any Daniel wrap/splints that were applied here, please do not remove them until you see your primary care or specialty. Referrals: SELF,REFERRAL (PCP) SHEKHAR REYNOLDS MD Mar 18, 2024 17:08 DASHAWN KENDALL MD Mar 18, 2024 20:05
[2024-03-18 17:35] LABS: BASOPHILS # (AUTO) 0.04 K/uL (0.00-0.20); BASOPHILS % (AUTO) 0.7 % (0.0-5.0); EOSINOPHILS % (AUTO) 1.7 % (0.0-8.0); HEMATOCRIT 35.9 % (36-48); IMMATURE GRANULOCYTE ABSOLUTE 0.02 K/uL (0-1); LYMPHOCYTES # (AUTO) 1.8 K/uL (1.0-4.8); LYMPHOCYTES % (AUTO) 29.3 % (21.0-51.0); MEAN CORPUSCULAR HEMOGLOBIN 29.2 pg (27.0-33.0); MEAN CORPUSCULAR HGB CONC 32.9 g/dL (32.0-36.0); MEAN CORPUSCULAR VOLUME 88.9 fL (79-99); MONOCYTES # (AUTO) 0.6 K/uL (0.1-1.0); MONOCYTES % (AUTO) 9.8 % (3.0-13.0); NEUTROPHILS # (AUTO) 3.5 K/uL (1.8-7.7); NEUTROPHILS % (AUTO) 58.2 % (40.0-77.0); PLATELET COUNT (AUTO) 153 K/uL (130-400); RED BLOOD CELL COUNT(AUTO) 4.04 MIL/uL (4.00-5.50); RED CELL DISTRIBUTION WIDTH 14.2 % (11.0-15.5); WHITE BLOOD COUNT (AUTO) 6.1 K/uL (4.8-10.8)
--- NOTE | 2024-03-18 17:40 | HMCIMG ---
Exam Type: CHEST 1VW Clinical Information: cp Comparison: None Findings: The lungs are clear of infiltrates. The heart is enlarged. Bony and soft tissue structures of the chest wall are unremarkable. IMPRESSION: Cardiomegaly. Clear lungs.
--- NOTE | 2024-03-18 17:41 | NUR ---
PT JUST RETURNED FROM CT SCAN
[2024-03-18 17:47] LABS: CREATININE 0.9 mg/dL (0.5-1.0); INR <= 0.93 (0.85-1.15); POTASSIUM 3.4 mmol/L (3.5-5.1); PROTHROMBIN TIME 10.2 SEC (9.6-11.6)
[2024-03-18 17:48] LABS: PARTIAL THROMBOPLASTIN TIME 27.9 SEC (26.3-35.5)
--- NOTE | 2024-03-18 17:49 | HMCIMG ---
Exam Type: CT ABDOMEN/PELVIS W/O CONTRAST Clinical Information: abd pain Comparison: None CT Dose Index (CTDI): 10.20 mGy Dose Length Product (DLP): 530.00 total mGy-cm PROTOCOL: Routine noncontrast helical scanning of the abdomen and pelvis was performed at 5mm collimation. Findings: No evidence of nephro or ureterolithiasis is found. No hydronephrosis or ureteral dilatation is seen. The lung bases are clear. The stomach is unremarkable. It shows no wall thickening. No gross ulceration is seen. It is not overly distended. There are no surrounding inflammatory changes. No wall lesions are identified to suggest cancer. The spleen is unremarkable. It is not enlarged. The pancreas shows normal anatomy. It is not fatty replaced. It shows no lesions. The pancreatic duct is not dilated. The gallbladder is unremarkable. It shows no cholelithiasis. The gallbladder wall is normal in thickness. There is no pericholecystic fluid. The is no acute or chronic inflammation noted. The adrenal glands are unremarkable. There is no enlargement. No lesions are noted. The liver is unremarkable. It shows no focal masses. The appendix is unremarkable. It shows no evidence of inflammation. No appendicolith is seen. The small bowel is unremarkable. There is no evidence of dilatation to suggest obstruction. No evidence of adynamic ileus is seen. There is no small bowel wall thickening to suggest enteritis. There is diverticulosis. There is no evidence of acute inflammation to suggest diverticulitis. The colon is otherwise unremarkable. The urinary bladder is unremarkable. There is no wall thickening to suggest tumor or inflammation. There are no intraluminal calculi. There are no diverticula. There is no evidence of chronic bladder outlet obstruction. There is no evidence of urinary bladder distention to suggest urinary retention. The other pelvic structures are unremarkable. The bony and vascular structures are unremarkable for the patient's age. Postoperative changes lumbar spine and status post left hip replacement. IMPRESSION: No acute pathology. This study was performed using dose reduction techniques to include automated exposure control and/or adjustment of the mA and/or kV according to patient size.
[2024-03-18 17:52] LABS: MAGNESIUM 1.9 mg/dL (1.80-2.40)
--- NOTE | 2024-03-18 18:40 | NUR ---
ED MD REYNOLDS INFORMED OF PTS SBP OF 208
[2024-03-18 18:43] LABS: APPEARANCE,URINE CLEAR (CLEAR); BILIRUBIN,URINE NEGATIVE (NEGATIVE); COLOR,URINE COLORLESS (YELLOW); GLUCOSE, URINE (UA) NEGATIVE (NEGATIVE); KETONES,URINE NEGATIVE (NEGATIVE); LEUKOCYTE ESTERASE ,URINE 250 Leu/uL (NEGATIVE); NITRATE,URINE NEGATIVE (NEGATIVE); OCCULT BLOOD,URINE NEGATIVE (NEGATIVE); PH,URINE 5.5 (5.0-8.0); PROTEIN,URINE NEGATIVE (NEGATIVE); UROBILINOGEN,URINE 0.2 mg/dL (0.2-1.0)
[2024-03-18 18:44] LABS: ADD UA MICROSCOPIC YES
[2024-03-18 18:45] LABS: B-TYPE NATRIURETIC PEPTIDE 26 pg/mL (0-100)
[2024-03-18 18:45] LABS: MUCUS,URINE RARE LPF (None Seen); RBC,URINE 0-1 /HPF (0-1); SQUAMOUS EPITHELIAL CELL,UR RARE /HPF (0-2)
[2024-03-18 19:18] LABS: SARS-CoV-2, RNA, NAAT NEGATIVE SARS CoV-2 (NEGATIVE)
[2024-03-18 19:23] LABS: INFLUENZA TYPE A Negative For Type A (NEGATIVE); INFLUENZA TYPE B Negative For Type B (NEGATIVE)
--- NOTE | 2024-03-18 19:28 | NUR ---
REPORT ENDORSED TO [facility]. PENDING MEDS FOR H/A AND NAUSEA. DR KENDALL MADE AWARE
[2024-03-18] MEDS: cefTRIAXone 1G VIAL IVPB ONE (20:41)
[2024-03-18] MEDS: ondanSETRON 4MG INJ IVP ONE (20:41)
[2024-03-18] MEDS: hydrALAZine 20MG/ML VIAL IV ONE (20:41)
[2024-03-18] MEDS: ketOROlac 15MG/ML VIAL (15MG/ML) IM ONE (20:42)
[2024-03-18] MEDS: FAMOTIDINE 20MG TAB PO ONE (20:42)
[2024-03-18 20:58] LABS: AMPHET/METH SCREEN,URINE NEGATIVE (NEGATIVE); BARBITURATE SCREEN, URINE NEGATIVE (NEGATIVE); BENZODIAZEPINES SCREEN,URINE NEGATIVE (NEGATIVE); CANNABINOID SCREEN,URINE NEGATIVE (NEGATIVE); COCAINE SCREEN,URINE NEGATIVE (NEGATIVE); OPIATE SCREEN,URINE NEGATIVE (NEGATIVE); PHENCYCLIDINE SCREEN,URINE NEGATIVE (NEGATIVE)
[2024-03-18 22:11] VITALS: BP 158/60; PULSE 99; RESP 18; O2SAT 97
[2024-03-18] MEDS ORDERED: NITR100C4 PO (22:21)
[2024-03-18] MEDS ORDERED: PANT40TA PO (22:21)
== END 2024-03-18 22:50 | disposition home or self-care (01) ==
LOC: EDH 16:33
DX: K29.70 Gastritis, unspecified, without bleeding (principal); N39.0 Urinary tract infection, site not specified; E11.9 Type 2 diabetes mellitus without complications; E78.00 Pure hypercholesterolemia, unspecified; F32.A Depression, unspecified; K21.9 Gastro-esophageal reflux disease without esophagitis; Z20.822 Contact with and (suspected) exposure to COVID-19; Z79.1 Long term (current) use of non-steroidal anti-inflammatories (NSAID); Z79.51 Long term (current) use of inhaled steroids; Z79.82 Long term (current) use of aspirin; Z79.890 Hormone replacement therapy; Z79.899 Other long term (current) drug therapy; Z88.0 Allergy status to penicillin; Z88.5 Allergy status to narcotic agent; Z90.710 Acquired absence of both cervix and uterus; Z98.890 Other specified postprocedural states
CPT/HCPCS: 99284; 74176; 96374; 96375; 71045; 87635; 82550; 83735; 84484; 80048; 83880; 80305; 85025; 85610; 85730; 87086; 87804 ×2; 36415; 93005; 81001; 96372; J0360; J0696; J2405; J1885

== ENCOUNTER 2024-08-17 19:05 | Emergency (ER) | payer OTHER ==
[~2024-08-17] VITALS: Ht 167.6 cm; Wt 84.4 kg
[~2024-08-17 19:05] MED LIST changes: +NITR100C4 PO; +PANT40TA PO
--- NOTE | 2024-08-17 19:33 | NUR ---
BLADDER SCAN 167MLS RANDOM BLADDER SCAN LAST VOIDED 30MINS AGO REPORTS SMALL AMOUNT OF URINE OUTPUT, REPORTS FREQUENCY, DX WITH UTI AT [facility] TODAY.
[2024-08-17] MEDS: 0.9%NACL 1000ML 1,000 ML IV SCH (19:50)
[2024-08-17 19:56] LABS: APPEARANCE,URINE CLEAR (CLEAR); BILIRUBIN,URINE NEGATIVE (NEGATIVE); COLOR,URINE COLORLESS (YELLOW); GLUCOSE, URINE (UA) 500 mg/dL (NEGATIVE); KETONES,URINE NEGATIVE (NEGATIVE); LEUKOCYTE ESTERASE ,URINE 250 Leu/uL (NEGATIVE); NITRATE,URINE NEGATIVE (NEGATIVE); OCCULT BLOOD,URINE NEGATIVE (NEGATIVE); PH,URINE 5.5 (5.0-8.0); PROTEIN,URINE NEGATIVE (NEGATIVE); UROBILINOGEN,URINE 0.2 mg/dL (0.2-1.0)
[2024-08-17 20:04] LABS: ADD UA MICROSCOPIC YES
[2024-08-17 20:04] LABS: BASOPHILS # (AUTO) 0.05 K/uL (0.00-0.20); BASOPHILS % (AUTO) 0.8 % (0.0-5.0); EOSINOPHILS # (AUTO) 0.24 K/uL (0.00-0.70); EOSINOPHILS % (AUTO) 3.9 % (0.0-8.0); HEMATOCRIT 34.9 % (36-48); IMMATURE GRANULOCYTE ABSOLUTE 0.02 K/uL (0-1); LYMPHOCYTES # (AUTO) 1.8 K/uL (1.0-4.8); LYMPHOCYTES % (AUTO) 29.1 % (21.0-51.0); MEAN CORPUSCULAR HEMOGLOBIN 29.3 pg (27.0-33.0); MEAN CORPUSCULAR HGB CONC 33.2 g/dL (32.0-36.0); MEAN CORPUSCULAR VOLUME 88.1 fL (79-99); MONOCYTES # (AUTO) 0.5 K/uL (0.1-1.0); NEUTROPHILS # (AUTO) 3.6 K/uL (1.8-7.7); NEUTROPHILS % (AUTO) 57.9 % (40.0-77.0); PLATELET COUNT (AUTO) 209 K/uL (130-400); RED BLOOD CELL COUNT(AUTO) 3.96 MIL/uL (4.00-5.50); RED CELL DISTRIBUTION WIDTH 14.1 % (11.0-15.5); WHITE BLOOD COUNT (AUTO) 6.2 K/uL (4.8-10.8)
[2024-08-17 20:06] LABS: BACTERIA,URINE RARE /HPF (None Seen); RBC,URINE 0-1 /HPF (0-1); SQUAMOUS EPITHELIAL CELL,UR RARE /HPF (0-2)
[2024-08-17 20:09] LABS: POTASSIUM 4.1 mmol/L (3.5-5.1)
[2024-08-17] MEDS: ondanSETRON 4MG INJ IVP ONE (20:18)
[2024-08-17] MEDS: hydrALAZine 20MG/ML VIAL IV ONE (20:18)
--- NOTE | 2024-08-17 20:24 | NUR ---
BLADDER SCANNED PT, POST VOID RESIDUAL 4MLS. PT REPORTS FEELING BETTER AFTER VOIDING.
--- NOTE | 2024-08-17 20:32 | ERN ---
ED Note History of Present Illness Stated Complaint: URINARY RETENTION Chief Complaint: Urinary Retention Time Seen by MD: 19:18 Dictation: This is a 78-year-old female who presented to the emergency room with complaints of urinary retention and nausea she was just seen at [facility] and given Macrobid script for a UTI. She showed up here saying that she had a full bladder and that was not treated there and she came here for further evaluation she voided 20 cc of urine very easily. No vomitings diarrhea Temperature 96.9 pulse 68 respirations 20 blood pressure 203/94 with a pulse oximetry of 98% on room air Chronic medical problems include diabetes mellitus, hypertension, hypercholesterolemia, GERD and thyroid problems she says that her she had sinus infection and hence her blood pressure is a little bit elevated because of the that Allergies: Coded Allergies: Penicillins (Unverified Allergy, Severe, 04/29/15) SWELLING DIFFUCULTY BREATH RASH codeine (Unverified Allergy, Unknown, 02/03/19) Home Meds Active Scripts Pantoprazole Sodium (Protonix) 40 Mg Tablet.dr, 1 TAB PO DAILY for 30 Days, #30 TAB 0 Refills Prov:DASHAWN KENDALL MD 03/18/24 Nitrofurantoin Monohyd/M-Cryst (Macrobid 100 mg Capsule) 100 Mg Capsule, 1 CAP PO BID for 7 Days, #14 CAP 0 Refills Prov:DASHAWN KENDALL MD 03/18/24 Ondansetron (Ondansetron Odt) 4 Mg Tab.rapdis, 4 MG PO Q6HPRN PRN for nausea, #16 TAB 0 Refills Prov:CHARISSE APARICIO NP 07/24/23 Nitrofurantoin Macrocrystal (Nitrofurantoin) 100 Mg Capsule, 100 MG PO BID for 7 Days, #14 CAP Prov:CHARISSE APARICIO NP 07/24/23 Dicyclomine HCl (Bentyl) 20 Mg Tab, 20 MG PO Q6HPRN for abd crAMPS, #30 TAB Prov:CHARISSE APARICIO NP 07/24/23 Cefdinir (Cefdinir) 300 Mg Capsule, 300 MG PO BID for 7 Days, #14 CAP Prov:PEG BUSTAMANTE MD 05/07/23 Acetaminophen (Acetaminophen) 500 Mg Tablet, 1000 MG PO Q6HPRN PRN for PAIN, #30 TAB Prov:PEG BUSTAMANTE MD 05/07/23 Fluticasone Propionate (Flonase Nasal [place]) 50 Mcg/Actuation [place], 2 SPRAYS NASAL BID for 7 Days, #1 SPRAY in each nostril Prov:PEG BUSTAMANTE MD 05/07/23 Oxymetazoline HCl (Oxymetazoline HCl) 0.05 % [place], 2 SPRAYS NS BID PRN for NASAL CONGESTION for 3 Days, #1 SPRAY in each nostril Prov:PEG BUSTAMANTE MD 05/07/23 Guaifenesin (Guaifenesin) 200 Mg Tablet, 200 MG PO BID, #10 TAB 0 Refills Prov:MAG ZAMBRANO NP 11/28/22 Ondansetron (Ondansetron Odt) 4 Mg Tab.rapdis, 4 MG PO Q6HPRN PRN for nausea, #15 TAB 0 Refills Prov:MAG ZAMBRANO NP 11/28/22 Azithromycin (Azithromycin) 500 Mg Tablet, 500 MG PO 2 on day 1, then dustin for 5 Days, #6 TAB 0 Refills Prov:MAG ZAMBRANO NP 11/28/22 Sulfamethoxazole/Trimethoprim (Bactrim Ds Tablet) 1 Each Tablet, 1 TAB PO BID for uti for 5 Days, #10 TAB Prov:QUYEN MATOS MD 08/30/22 Aspirin (Aspirin) 81 Mg Tab.chew, 81 MG PO DAILY for 30 Days, #30 TAB.CHEW Prov:CLAUDINE HERNANDEZ NP 06/05/22 Ketorolac Tromethamine (Toradol) 10 Mg Tab, 10 MG PO Q6H PRN for PAIN LEVEL 6 TO 10, #16 TAB Prov:CLAUDINE HERNANDEZ NP 06/05/22 Budesonide/Formoterol Fumarate (Symbicort 80-4.5 Mcg Inhaler) 10.2 Gm Inhr, 10.2 GM IH BID for 30 Days, #1 INH Prov:CLAUDINE HERNANDEZ GLOST TILE SHADER 06/05/22 Doxycycline Hyclate (Doxycycline Hyclate) 100 Mg Capsule, 100 MG PO BID for 5 Days, #10 CAP Prov:CLAUDINE HERNANDEZ NP 06/05/22 Ibuprofen (Motrin/Advil) 800 Mg Tab, 800 MG PO TID, #30 TAB Prov:ARABELLA MÁRQUEZ MD 03/30/22 Gabapentin (Neurontin) 300 Mg Capsule, 300 MG PO TID, #60 CAP Prov:ARABELLA MÁRQUEZ MD 03/30/22 Levalbuterol HCl (Xopenex) 1.25 Mg/3 Ml Vial.neb, 1.25 MG IH TID for copd for 10 Days, #30 INH Prov:AURA HASSAN 03/25/22 Pantoprazole Sodium (Protonix) 40 Mg Ectab, 40 MG PO DAILY for 30 Days, #30 TAB.EC Prov:JESSICA KELLER 07/30/19 Reported Medications Prednisolone Acetate (Pred Forte 1% Ophth Susp) 20 Drop/Ml Opsus, 20 DROP OD DAILY, DROP 06/03/22 Simethicone (Anti-Gas) 180 Mg Capsule, 180 MG PO PM PRN for GI GAS, CAP 06/03/22 Semaglutide (Rybelsus) 3 Mg Tablet, 3 MG PO DAILY, TAB 06/03/22 Ergocalciferol (Vitamin D2) (Vitamin D2) 1,250 Mcg Capsule, 1250 MCG PO QWEEK, CAP 06/03/22 Rosuvastatin Calcium (Rosuvastatin Calcium) 10 Mg Tablet, 10 MG PO HS, TAB 06/03/22 Quetiapine Fumarate (Quetiapine Fumarate ER) 150 Mg Tab.er.24h, 150 MG PO DAILY, TAB 06/03/22 Levothyroxine Sodium (Levothyroxine Sodium) 88 Mcg Tablet, 88 MCG PO DAILY, TAB 04/12/17 Tizanidine HCl (Tizanidine HCl) 4 Mg Tablet, 4 MG PO HS, TAB 10/05/16 Alendronate Sodium (Alendronate Sodium) 70 Mg Tablet, 70 MG PO QWEEK, TAB 10/05/16 Quetiapine Fumarate (Quetiapine Fumarate) 100 Mg Tablet, 100 MG PO HS, TAB 03/01/16 Liothyronine Sodium (Liothyronine Sodium) 5 Mcg Tablet, 12.5 MCG PO BID 09/04/15 Losartan Potassium (Losartan Potassium) 100 Mg Tablet, 100 MG PO HS 09/04/15 Past Medical History Past Medical History: Depression, Diabetes-Type II, GERD, High Cholesterol, Hypertension Additional Past Medical Hx: THYROID, SINUS INFECTIONS Surgical History: Hysterectomy, Surgical History Other: LT HIP SX, BACK SX Family History: HTN Social History: Negative, Lives with family History: Not Applicable RN Note Reviewed/Agreed w/PFSH: Yes Review of System Dictation Constitutional: Negative for fever,chills, and weight loss Eyes: Negative for injury, pain,redness, and discharge ENT: Negative for injury,pain or swelling Cardiovascular: Negative for chest pain, palpitations, and edema Respiratory: Negative for shortness of breath, cough, and wheezing, Abdomen/GI: Negative for abdominal pain, nausea, vomiting, diarrhea, and constipation Back: Negative for injury and pain : Negative for injury, bleeding and discharge positive for feeling full after voiding, painful urination MS/Extremity: Negative for injury and deformity Skin: Negative for rash, and discoloration Neuro: Negative for headache, weakness, numbness, tingling, and seizure Psych: Negative for suicide ideation, homicidal ideation, and hallucinations Initial Vital Sign VS Vital Signs Date Time Temp Pulse Resp B/P (MAP) Pulse Ox O2 Delivery O2 Flow Rate FiO2 08/17/24 19:07 97.0 68 20 203/94 96 Room Air 08/17/24 20:14 0 21 Physical Exam Dictation General: awake, alert, NAD elderly female who is slow to walk and general debility Head/Face: Normocephalic, atraumatic Eyes: PERRL, EOMI, vision at baseline ENT: oral cavity clear, TMs clear, no signs of infection Neck: Trachea midline, supple, no nuchal rigidity Cardiovascular: RRR, normal S1/S2, No MRGs, no JVD Respiratory: CTAB, no respiratory distress, No rales or wheezes Abdomen: Soft, non-tender, non-distended, normal bowel sounds, no guarding or rebound. Skin: Warm, dry, normal turgor, no rash MS/Extremity: Pulses equal, no cyanosis, neurovascular intact, FROM Neuro: COAx4, GCS 15, strength 5/5, CN 2-12 intact, normal cerebellar exam, normal gait, Psych: Normal behavior, mood, and affect normal Extremities-trace edema without any palpable cords, Homans sign is negative Results (Laboratory/Radiology) Laboratory/Radiology Laboratory Tests Test 08/17/24 19:28 08/17/24 19:49 Urine Color COLORLESS (YELLOW) Urine Appearance CLEAR (CLEAR) Urine pH 5.5 (5.0-8.0) Urine Specific [place] 1.004 (1.001-1.031) Urine Protein NEGATIVE mg/dL (NEGATIVE) Urine Glucose (UA) 500 mg/dL (NEGATIVE) H Urine Ketones NEGATIVE mg/dL (NEGATIVE) Urine Occult Blood NEGATIVE (NEGATIVE) Urine Nitrate NEGATIVE (NEGATIVE) Urine Bilirubin NEGATIVE mg/dL (NEGATIVE) Urine Urobilinogen 0.2 mg/dL (0.2-1.0) Urine Leukocyte Esterase 250 [place]/uL (NEGATIVE) H Urine RBC 0-1 /HPF (0-1) Urine WBC 11-25 /HPF (0-1) H Urine Squamous Epithelial Cells RARE /HPF (0-2) Urine Bacteria RARE /HPF (None Seen) White Blood Count 6.2 K/uL (4.8-10.8) Red Blood Count 3.96 MIL/uL (4.00-5.50) L Hemoglobin 11.6 g/dL (12.0-16.0) L Hematocrit 34.9 % (36-48) L Mean Corpuscular Volume 88.1 fL (79-99) Mean Corpuscular Hemoglobin 29.3 pg (27.0-33.0) Mean Corpuscular Hemoglobin Concent 33.2 g/dL (32.0-36.0) Red Cell Distribution Width 14.1 % (11.0-15.5) Platelet Count 209 K/uL (130-400) Mean Platelet Volume 12.0 fL (7.5-10.5) H Immature Granulocyte % (Auto) 0.3 % (0-1) Neutrophils (%) (Auto) 57.9 % (40.0-77.0) Lymphocytes (%) (Auto) 29.1 % (21.0-51.0) Monocytes (%) (Auto) 8.0 % (3.0-13.0) Eosinophils (%) (Auto) 3.9 % (0.0-8.0) Basophils (%) (Auto) 0.8 % (0.0-5.0) Neutrophils # (Auto) 3.6 K/uL (1.8-7.7) Lymphocytes # (Auto) 1.8 K/uL (1.0-4.8) Monocytes # (Auto) 0.5 K/uL (0.1-1.0) Eosinophils # (Auto) 0.24 K/uL (0.00-0.70) Basophils # (Auto) 0.05 K/uL (0.00-0.20) Absolute Immature Granulocyte (auto 0.02 K/uL (0-1) Nucleated Red Blood Cells 0.0 % (0.0-0.19) Sodium Level 137 mmol/L (136-145) Potassium Level 4.1 mmol/L (3.5-5.1) Chloride Level 100 mmol/L (101-111) L Carbon Dioxide Level 26 mmol/L (21-32) Blood Urea Nitrogen 12 mg/dL (7-18) Creatinine 1.0 mg/dL (0.5-1.0) Glomerular Filtration Rate Calc 58 mL/min (>90) Random Glucose 110 mg/dL (70-105) H Total Calcium 9.3 mg/dL (8.5-10.1) Labs Reviewed?: Yes ED Course ED Course Orders Procedure Category Date Status Time Cbc With Differential LAB 08/17/24 Complete 19:20 Basic Metabolic Panel LAB 08/17/24 Complete 19:20 Urinalysis Profile LAB 08/17/24 Complete 19:20 Bladder Scan CPOE 08/17/24 Transmitted 19:21 0.9%Nacl 1000ml (Ns PHA 08/17/24 In Process 1000ml) 19:38 Culture Urine PASTORA 08/17/24 In Process 20:04 Ondansetron 4mg Inj PHA 08/17/24 Complete (Zofran 4mg Inj) 20:30 Hydralazine 20mg Inj PHA 08/17/24 Complete (Apresoline 20mg In 20:30 Current Medications Medications (Trade) Dose Ordered Sig/Emelina Route PRN Reason Start Time Stop Time Status Last Admin Dose Admin Hydralazine HCl (APRESOLine 20MG INJ) 10 mg ONCE ONCE IV 08/17/24 20:30 08/17/24 20:31 DC 08/17/24 20:18 Ondansetron HCl (zoFRAN 4MG INJ) 4 mg ONCE ONCE IVP 08/17/24 20:30 08/17/24 20:31 DC 08/17/24 20:18 Sodium Chloride 1,000 ml @ 0 mls/hr Q0M IV 08/17/24 19:38 09/16/24 19:37 08/17/24 19:50 Vital Signs Date Time Temp Pulse Resp B/P (MAP) Pulse Ox O2 Delivery O2 Flow Rate FiO2 08/17/24 20:57 97.5 68 18 160/73 96 Room Air* 0 21 08/17/24 20:44 97.3 70 18 173/75 96 Room Air* 0 21 08/17/24 20:14 97.5 68 18 209/99 96 Room Air* 0 21 08/17/24 19:07 97.0 68 20 203/94 96 Room Air We will perform diagnostic labs, and administer medications according to the patient's complaint. Once the results are available, will review and personally interpreted the labs to rule out any acute life-threatening emergency the trach require immediate intervention and treatment. I will then re-evaluate the patient after treatment and diagnostic exams have return to determine whether the patient requires any further testing, can safely be discharged home or need further admission to hospital for additional treatment and evaluation. Bladder scan revealed only 164 mL CBC BNP 7 with a normal limits. Patient voided again and postvoid residual was 4 mL Urinalysis has been resulted which shows positive leuko esterase positive WBCs suggestive of a UTI. Patient already has a script for Macrobid however patient also has severe sinus infection and a headache. So I suggested to the daughter that we could do levofloxacin and she was agreeable We will DC her on Flomax in view of the urinary retention. Her repeat blood pressure improved nicely to 160/73. Medical Decision Making MDM MDM: Differential diagnosis: Cystitis, neurogenic bladder, dehydration, urethral stricture Rationale: Tests considered and ordered secondary to shared decision making include: Previous outside records reviewed: Old ER visits. Risk of complication and/or morbidity or mortality of patient management: None Medications-Per medication reconciliation Need for hospitalization: Patient does not meet criteria for hospitalization. Need for emergency major/minor surgery: No There are no social concerns with this patient. Prescription drug management Prescriptions will include symptomatic care Patient's prior external medical records from other ER visits were reviewed by me as indicated. Prior testing and results from previous visits were reviewed. Prior tests were taken into account with medical decision making and resource utilization, independent historian/historians were used to obtain complete medical history. I independently interpreted the test that were performed, results were reviewed by me and considered findings on radiology if ordered. Medical management and examination interpretation discussions were had by me with other qualified healthcare professionals as indicated for the patient's care. Problem List Problem List: (1) Urinary retention (2) Acute cystitis (3) Asymptomatic hypertensive urgency DX & DISP Disposition: Discharge Departure Impression: Primary Impression: Acute cystitis Additional Impressions: Urinary retention, Asymptomatic hypertensive urgency Condition: Stable Scripts Tamsulosin HCl (Flomax) 0.4 Mg Cap.er.24h 1 CAP PO DAILY for 10 Days, #10 CAP 0 Refills Prov: DASHAWN KENDALL MD 08/17/24 Levofloxacin (Levofloxacin) 750 Mg Tablet 1 TAB PO DAILY for 14 Days, #14 TAB 0 Refills Prov: DASHAWN KENDALL MD 08/17/24 Referrals: SELF,REFERRAL (PCP) DASHAWN KENDALL MD August 17, 2024 20:32
[2024-08-17] MEDS ORDERED: LEVO750T90 PO (21:17)
[2024-08-17] MEDS ORDERED: TAMS-55 PO (21:19)
[2024-08-17] MEDS: cefTRIAXone 1G VIAL IVPB ONE (21:25)
[2024-08-17] MEDS: morPHINE 2 MG SYG IVP ONE (21:25)
[2024-08-17 21:38] VITALS: BP 148/68; PULSE 62; RESP 18; TEMP 97.5; O2SAT 96
== END 2024-08-17 21:40 | disposition home or self-care (01) ==
LOC: EDH 19:05
DX: N30.00 Acute cystitis without hematuria (principal); I16.0 Hypertensive urgency; R33.9 Retention of urine, unspecified; E11.9 Type 2 diabetes mellitus without complications; E78.00 Pure hypercholesterolemia, unspecified; F32.A Depression, unspecified; I10 Essential (primary) hypertension; Z79.1 Long term (current) use of non-steroidal anti-inflammatories (NSAID); Z79.51 Long term (current) use of inhaled steroids; Z79.82 Long term (current) use of aspirin; Z79.890 Hormone replacement therapy; Z79.899 Other long term (current) drug therapy; Z88.0 Allergy status to penicillin; Z88.5 Allergy status to narcotic agent; Z90.710 Acquired absence of both cervix and uterus; Z98.890 Other specified postprocedural states
CPT/HCPCS: 99285; 96374; 96375; 96361; 51798; 80048; 85025; 87086; 81001; 36415; J2270; J7030; J0360; J0696; J2405

== ENCOUNTER 2024-11-24 17:07 | Inpatient (IN) | payer OTHER ==
[~2024-11-24] VITALS: Ht 167.6 cm; Wt 79.7 kg
[~2024-11-24 17:07] MED LIST changes: +LEVO750T90 PO; +TAMS-55 PO
[2024-11-24 17:56] LABS: IMMATURE GRANULOCYTE ABSOLUTE 0.01 K/uL (0-1); NUCLEATED RED BLOOD CELLS 0.0 % (0.0-0.19); PLATELET COUNT (AUTO) 185 K/uL (130-400); RED BLOOD CELL COUNT(AUTO) 4.33 MIL/uL (4.00-5.50); RED CELL DISTRIBUTION WIDTH 14.6 % (11.0-15.5); WHITE BLOOD COUNT (AUTO) 6.5 K/uL (4.8-10.8)
[2024-11-24 18:04] LABS: CREATININE 0.7 mg/dL (0.5-1.0); GLOMERULAR FILTR. RATE CALC 89.0 mL/min (>90); GLUCOSE,RANDOM 120.0 mg/dL (70-105); SODIUM SERUM 139.0 mmol/L (136-145); UREA NITROGEN, BLOOD 13.0 mg/dL (7-18)
[2024-11-24 18:35] VITALS: PULSE 69; RESP 18
--- NOTE | 2024-11-24 18:44 | HMCIMG ---
EXAM: Non-contrast CT examination of the Brain CLINICAL HISTORY: Headache. TECHNIQUE: Thin collimated axial CT images of the brain were obtained with sagittal and coronal reformatted images also submitted. CT scan done according to ALARA (As Low as Reasonably Achievable). CONTRAST USED: None. COMPARISON: CT dated 05/07/23. FINDINGS: Mild diffuse age-related cerebral atrophy is evident by prominent cisterns, and sulcal spaces. Scattered hypodensities noted in the white matter of bilateral cerebral hemispheres, likely chronic small vessel ischemic changes. Suspected left frontal arachnoid cyst. No acute cortical infarction or hemorrhage. No hydrocephalus. No abnormal extra-axial fluid collections. The posterior fossa is unremarkable. The skull base and calvarium are intact. 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 Mild bilateral ethmoid sinusitis. Remaining included portions of the paranasal sinuses and mastoid air cells are clear. IMPRESSION: No acute intracranial abnormality is present. If clinical concern persists, recommend MRI of the brain for further evaluation. Mild diffuse age-related cerebral atrophy and chronic small vessel ischemic changes. Suspected left frontal arachnoid cyst. 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 Mild bilateral ethmoid sinusitis. No significant interval changes. /[place]
[2024-11-24 18:50] LABS: SARS-CoV-2, RNA, NAAT NEGATIVE SARS CoV-2 (NEGATIVE)
[2024-11-24 18:55] LABS: INFLUENZA TYPE A Negative For Type A (NEGATIVE); INFLUENZA TYPE B Negative For Type B (NEGATIVE)
--- NOTE | 2024-11-24 19:23 | HMCIMG ---
EXAMINATION: CR Chest, 1 View. CLINICAL HISTORY: Patient presents with shortness of breath. COMPARISON: Chest radiograph dated March 18, 2024. FINDINGS: LUNGS: Patchy airspace opacities in the right lower zone, new since the prior examination. PLEURAL SPACES: No evidence of pleural effusion or pneumothorax. MEDIASTINUM: Prominent bilateral hilar shadows, new since the prior examination. The cardiomediastinal silhouette is within normal limits. BONES: No aggressive appearing osseous lesion seen. IMPRESSION: Patchy right lower zone airspace opacities, new since prior exam. Prominent bilateral hilar shadows, new since prior exam. Recommend CT thorax for further evaluation. /[place]
--- NOTE | 2024-11-24 22:10 | NUR ---
PENDING HOME MEDICATIONS LIST, PATIENT STATED SHE WILL ASK FAMILY MEMBER TO BRING MEDICATIONS TOMORROW.
--- NOTE | 2024-11-24 23:05 | HP ---
History of Present Illness Reason for Visit: sob History of Present Illness Ms. Peterson is a 78-year-old female that was seen and examined today on 11/24/2024. Patient is a good historian of personal health Patient reports that she came to the emergency department with a chief complaint of weakness. Onset was Tuesday11/22/2023. Location is bilateral lower extremities. Duration is constant. Character is described as, "like I can not stand up long enough to cook for myself. "There was no alleviating factors. Symptoms are aggravated with physical activity. Patient reports associated shortness and breath. Today in the emergency department CBC unremarkable, BNP unremarkable, chest x-ray shows perihilar shadows and right lower lobe opacities. Emergency room physician recommended that patient be admitted with a diagnosis of pneumonia. Past Medical History Patient History: Cancer SISTER (JAXAT CANCER) Chronic obstructive lung disease SISTER Family history: Cardiovascular disease MOTHER Family history: Diabetes mellitus MOTHER BROTHER Family history: Hypertension MOTHER BROTHER SISTER SISTER Parkinson's disease ADDITIONAL PAST MEDICAL HISTORY: [Diabetes mellitius type2, hypertension, hyperlipidemia, hypothyroidism, COPD] SOCIAL HISTORY: [Negative for smoking, alcohol use, drug use. Patient lives with the daughter, Elsi Hendrickson. Patient is typically independent of her ADLs. Patient denies difficulty paying her bills.] SURGICAL HISTORY: [Hysterectomy, left ankle ORIF, left hip replacement, appendectomy] Review of Systems General: No Fever, No Chills, No Night Sweats, No Fatigue, No Malaise, No Appetite, No Other HEENT: No Head Aches, No Visual Changes, No Eye Pain, No Ear Pain, No Dysphasia, No Sinus Congestion, No Post Nasal Drip, No Sore Throat, No Other Pulmonary: Dyspnea; No Cough, No Pleuritic Chest Pain, No Other Cardiovascular: No: Chest Pain, Palpitations, Orthopnea, Paroxysmal Noc. Dyspnea, Edema, Lt Headedness, Other Gastrointestinal: No: Nausea, Vomiting, Abdominal Pain, Diarrhea, Constipation, Melena, Hematochezia, Other Genitourinary: No Dysuria, No Frequency, No Incontinence, No Hematuria, No Retention, No Other Musculoskeletal: No: other, neck pain, shoulder pain, arm pain, back pain, hand pain, leg pain, foot pain Skin: No Urticaria, No Rash, No Other Neurological: Weakness; No: Numbness, Incoordination, Change in speech, Confusion, Seizures, Other Allergies: Coded Allergies: Penicillins (Unverified Allergy, Severe, 04/29/15) SWELLING DIFFUCULTY BREATH RASH codeine (Unverified Allergy, Unknown, 02/03/19) Scheduled Alendronate Sodium (Alendronate Sodium), 70 MG PO QWEEK, (Reported) Aspirin (Aspirin), 81 MG PO DAILY Azithromycin (Azithromycin), 500 MG PO 2 on day 1, then dustin Budesonide/Formoterol Fumarate (Symbicort 80-4.5 Mcg Inhaler), 10.2 GM IH BID Cefdinir (Cefdinir), 300 MG PO BID Dicyclomine HCl (Bentyl), 20 MG PO Q6HPRN Doxycycline Hyclate (Doxycycline Hyclate), 100 MG PO BID Ergocalciferol (Vitamin D2) (Vitamin D2), 1,250 MCG PO QWEEK, (Reported) Fluticasone Propionate (Flonase Nasal [place]), 2 SPRAYS NASAL BID Gabapentin (Neurontin), 300 MG PO TID Guaifenesin (Guaifenesin), 200 MG PO BID Ibuprofen (Motrin/Advil), 800 MG PO TID Levalbuterol HCl (Xopenex), 1.25 MG IH TID Levofloxacin (Levofloxacin), 1 TAB PO DAILY Levothyroxine Sodium (Levothyroxine Sodium), 88 MCG PO DAILY, (Reported) Liothyronine Sodium (Liothyronine Sodium), 12.5 MCG PO BID, (Reported) Losartan Potassium (Losartan Potassium), 100 MG PO HS, (Reported) Nitrofurantoin Macrocrystal (Nitrofurantoin), 100 MG PO BID Nitrofurantoin Monohyd/M-Cryst (Macrobid 100 mg Capsule), 1 CAP PO BID Pantoprazole Sodium (Protonix), 40 MG PO DAILY Pantoprazole Sodium (Protonix), 1 TAB PO DAILY Prednisolone Acetate (Pred Forte 1% Ophth Susp), 20 DROP OD DAILY, (Reported) Quetiapine Fumarate (Quetiapine Fumarate), 100 MG PO HS, (Reported) Quetiapine Fumarate (Quetiapine Fumarate ER), 150 MG PO DAILY, (Reported) Rosuvastatin Calcium (Rosuvastatin Calcium), 10 MG PO HS, (Reported) Semaglutide (Rybelsus), 3 MG PO DAILY, (Reported) Sulfamethoxazole/Trimethoprim (Bactrim Ds Tablet), 1 TAB PO BID Tamsulosin HCl (Flomax), 1 CAP PO DAILY Tizanidine HCl (Tizanidine HCl), 4 MG PO HS, (Reported) Scheduled PRN Acetaminophen (Acetaminophen), 1,000 MG PO Q6HPRN PRN for PAIN Ketorolac Tromethamine (Toradol), 10 MG PO Q6H PRN for PAIN LEVEL 6 TO 10 Ondansetron (Ondansetron Odt), 4 MG PO Q6HPRN PRN for nausea Ondansetron (Ondansetron Odt), 4 MG PO Q6HPRN PRN for nausea Oxymetazoline HCl (Oxymetazoline HCl), 2 SPRAYS NS BID PRN for NASAL CONGESTION Simethicone (Anti-Gas), 180 MG PO PM PRN for GI GAS, (Reported) Exam Vital Signs Vital Signs Date Time Temp Pulse Resp B/P (MAP) Pulse Ox O2 Delivery O2 Flow Rate FiO2 11/24/24 20:40 98.4 74 18 124/85 94 Room Air* 0 21 General Appearance: Alert, Oriented X3, Cooperative, mild distress HEENT: Atraumatic, EOMI Respiratory: Other (Right lower lobe rhonchi) Cardiovascular: Regular rate, Regular rhythm, Normal S1, Normal S2 Abdominal: Normal bowel sounds, Soft, No tenderness Extremities: No edema Skin: No significant lesion Neuro: Normal speech, Strength at 5/5 X4 ext, Sensation intact, Cranial nerves 3-12 NL Psych/Mental Status: Mental status NL, Mood NL, Thoughts/Content NL Assessment/Plan ASSESSMENT: [ Pneumonia, POA Diabetes mellitius type2 Hypertension Hyperlipidemia Hypothyroidism COPD] PLAN: [ Admit patient to medical floor as inpatient status. Pneumonia, COPD: DuoNebs every 6 hours. Pulmicort twice daily. Check respiratory culture, follow up with the results Empiric antibiotic therapy with Levaquin Supportive treatment with a guaifenesin, Tylenol Pulmicort twice daily Diabetes mellitus type 2: Check hemoglobin A1c in a.m. Glucometer checks a.c. and HS 1800 ADA diet Humulin R sliding scale Hypertension, hyperlipidemia, hypothyroidism: Consider resuming home medications once they have been reconciled. At time of admission home medications have been reconciled. For now: Hydralazine 10 mg IV every 4 hours for systolic blood pressure greater than 160 mmHg Atorvastatin 40 mg by mouth once daily Check TSH in a.m. GI prophylaxis, famotidine DVT prophylaxis, Lovenox ADVANCED CARE PLANNING 1. Which of the following were discussed? Hospice Care - Yes Therapeutic options - yes Advance Directives - Yes - patient states that she does not have any advance directives in place at this time, however her daughter Elsi Hendrickson can make decisions for her if she becomes unable. Other discussions - patient wishes to remain a full code at this time 2. Discussed with who? Patient 3. Voluntary nature of this service was explained to the patient? Yes 4. Amount of time spent - ___16 minutes____ 5. Reviewed by Physician? (if this service was performed by NPP) Yes This document was generated in part using voice recognition software, occasional wrong word or sound alike substitutions may have occurred due to the inherent limitations of voice recognition software. Read the chart carefully and recognize using context, where the substitutions have occurred. Although every effort was made to edit the content, put in beat adjuster and typing errors may occur ATTESTATION BY PHYSICIAN I have seen and examined the patient. I reviewed the documentation, medical decision making, and treatment plan as noted by the mid-level provider above. I agree with the findings and plan of care. JEB WAGGONER COPYRIGHT MANAGER Nov 24, 2024 23:05
--- NOTE | 2024-11-24 23:24 | ERN ---
General Chief Complaint: Shortness of Breath Stated Complaint: SOB Time Seen by MD: 17:13 Time Seen by Midlevel: 17:13 Source: patient History of Present Illness Initial Comments Patient is a 78-year-old female with a past medical history of COPD presenting to the emergency department for evaluation of a headache and shortness of breath with exertion and lying down. This has been ongoing for three days. Denies any other symptoms Allergies: Coded Allergies: Penicillins (Unverified Allergy, Severe, 04/29/15) SWELLING DIFFUCULTY BREATH RASH codeine (Unverified Allergy, Unknown, 02/03/19) Home Meds Active Scripts Tamsulosin HCl (Flomax) 0.4 Mg Cap.er.24h, 1 CAP PO DAILY for 10 Days, #10 CAP 0 Refills Prov:DASHAWN KENDALL MD 08/17/24 Levofloxacin (Levofloxacin) 750 Mg Tablet, 1 TAB PO DAILY for 14 Days, #14 TAB 0 Refills Prov:DASHAWN KENDALL MD 08/17/24 Pantoprazole Sodium (Protonix) 40 Mg Tablet.dr, 1 TAB PO DAILY for 30 Days, #30 TAB 0 Refills Prov:DASHAWN KENDALL MD 03/18/24 Nitrofurantoin Monohyd/M-Cryst (Macrobid 100 mg Capsule) 100 Mg Capsule, 1 CAP PO BID for 7 Days, #14 CAP 0 Refills Prov:DASHAWN KENDALL MD 03/18/24 Ondansetron (Ondansetron Odt) 4 Mg Tab.rapdis, 4 MG PO Q6HPRN PRN for nausea, #16 TAB 0 Refills Prov:CHARISSE APARICIO NP 07/24/23 Nitrofurantoin Macrocrystal (Nitrofurantoin) 100 Mg Capsule, 100 MG PO BID for 7 Days, #14 CAP Prov:CHARISSE APARICIO NP 07/24/23 Dicyclomine HCl (Bentyl) 20 Mg Tab, 20 MG PO Q6HPRN for abd crAMPS, #30 TAB Prov:CHARISSE APARICIO EMBALMER/FUNERAL DIRECTOR 07/24/23 Cefdinir (Cefdinir) 300 Mg Capsule, 300 MG PO BID for 7 Days, #14 CAP Prov:PEG BUSTAMANTE MD 05/07/23 Acetaminophen (Acetaminophen) 500 Mg Tablet, 1000 MG PO Q6HPRN PRN for PAIN, #30 TAB Prov:PEG BUSTAMANTE MD 05/07/23 Fluticasone Propionate (Flonase Nasal [place]) 50 Mcg/Actuation [place], 2 SPRAYS NASAL BID for 7 Days, #1 SPRAY in each nostril Prov:PEG BUSTAMANTE MD 05/07/23 Oxymetazoline HCl (Oxymetazoline HCl) 0.05 % [place], 2 SPRAYS NS BID PRN for NASAL CONGESTION for 3 Days, #1 SPRAY in each nostril Prov:PEG BUSTAMANTE MD 05/07/23 Guaifenesin (Guaifenesin) 200 Mg Tablet, 200 MG PO BID, #10 TAB 0 Refills Prov:MAG ZAMBRANO NP 11/28/22 Ondansetron (Ondansetron Odt) 4 Mg Tab.rapdis, 4 MG PO Q6HPRN PRN for nausea, #15 TAB 0 Refills Prov:MAG ZAMBRANO NP 11/28/22 Azithromycin (Azithromycin) 500 Mg Tablet, 500 MG PO 2 on day 1, then dustin for 5 Days, #6 TAB 0 Refills Prov:MAG ZAMBRANO NP 11/28/22 Sulfamethoxazole/Trimethoprim (Bactrim Ds Tablet) 1 Each Tablet, 1 TAB PO BID for uti for 5 Days, #10 TAB Prov:QUYEN MATOS MD 08/30/22 Aspirin (Aspirin) 81 Mg Tab.chew, 81 MG PO DAILY for 30 Days, #30 TAB.CHEW Prov:CLAUDINE HERNANDEZ NP 06/05/22 Ketorolac Tromethamine (Toradol) 10 Mg Tab, 10 MG PO Q6H PRN for PAIN LEVEL 6 TO 10, #16 TAB Prov:CLAUDINE HERNANDEZ NP 06/05/22 Budesonide/Formoterol Fumarate (Symbicort 80-4.5 Mcg Inhaler) 10.2 Gm Inhr, 10.2 GM IH BID for 30 Days, #1 INH Prov:CLAUDINE HERNANDEZ NP 06/05/22 Doxycycline Hyclate (Doxycycline Hyclate) 100 Mg Capsule, 100 MG PO BID for 5 Days, #10 CAP Prov:CLAUDINE HERNANDEZ NP 06/05/22 Ibuprofen (Motrin/Advil) 800 Mg Tab, 800 MG PO TID, #30 TAB Prov:ARABELLA MÁRQUEZ MD 03/30/22 Gabapentin (Neurontin) 300 Mg Capsule, 300 MG PO TID, #60 CAP Prov:ARABELLA MÁRQUEZ MD 03/30/22 Levalbuterol HCl (Xopenex) 1.25 Mg/3 Ml Vial.neb, 1.25 MG IH TID for copd for 10 Days, #30 INH Prov:AURA HASSAN 03/25/22 Pantoprazole Sodium (Protonix) 40 Mg Ectab, 40 MG PO DAILY for 30 Days, #30 TAB.EC Prov:JESSICA KELLER 07/30/19 Reported Medications Prednisolone Acetate (Pred Forte 1% Ophth Susp) 20 Drop/Ml Opsus, 20 DROP OD DAILY, DROP 06/03/22 Simethicone (Anti-Gas) 180 Mg Capsule, 180 MG PO PM PRN for GI GAS, CAP 06/03/22 Semaglutide (Rybelsus) 3 Mg Tablet, 3 MG PO DAILY, TAB 06/03/22 Ergocalciferol (Vitamin D2) (Vitamin D2) 1,250 Mcg Capsule, 1250 MCG PO QWEEK, CAP 06/03/22 Rosuvastatin Calcium (Rosuvastatin Calcium) 10 Mg Tablet, 10 MG PO HS, TAB 06/03/22 Quetiapine Fumarate (Quetiapine Fumarate ER) 150 Mg Tab.er.24h, 150 MG PO DAILY, TAB 06/03/22 Levothyroxine Sodium (Levothyroxine Sodium) 88 Mcg Tablet, 88 MCG PO DAILY, TAB 04/12/17 Tizanidine HCl (Tizanidine HCl) 4 Mg Tablet, 4 MG PO HS, TAB 10/05/16 Alendronate Sodium (Alendronate Sodium) 70 Mg Tablet, 70 MG PO QWEEK, TAB 10/05/16 Quetiapine Fumarate (Quetiapine Fumarate) 100 Mg Tablet, 100 MG PO HS, TAB 03/01/16 Liothyronine Sodium (Liothyronine Sodium) 5 Mcg Tablet, 12.5 MCG PO BID 09/04/15 Losartan Potassium (Losartan Potassium) 100 Mg Tablet, 100 MG PO HS 09/04/15 Past Medical History Past Medical History: Depression, Diabetes-Type II, GERD, High Cholesterol, Hypertension Medical History Other: THYROID, SINUS INFECTIONS Past Surgical History: Hysterectomy, Surgical History Other: LT HIP SX, BACK SX Family History Family History: HTN Social History Social History: Negative, Lives with family Female( History) History: Not Applicable ROS Dictation CONSTITUTIONAL: Negative except for HPI HEAD/FACE: Negative except for HPI EENT: Negative except for HPI RESPIRATORY: Negative except for HPI GASTROINTESTINAL/ABDOMINAL: Negative except for HPI GENITOURINARY: Negative except for HPI MUSCULOSKELETAL: Negative except for HPI INTEGUMENTARY: Negative except for HPI NEUROLOGICAL/PSYCH: Negative except for HPI HEMATOLOGIC/LYMPHATIC: Negative except for HPI All Systems Negative, Except as noted above. 13 point review of systems assessed and all negative except for above. Physical Exam Physical Exam Dictation Vital Signs reviewed General Appearance: Alert, oriented x 3, no acute distress, well developed, nourished. Head and Face: non-traumatic. Eyes: PERRL, pink conjunctivas, eyelid no trauma, anterior chamber with arcus senilis. Ears: Pinnas intact and no signs of trauma or erythema ear canals clear and no discharge TM no erythema Nose: No discharge, no bleeding. Oropharynx: Mouth normal, tongue pink, pharynx clear,no erythema, tonsils no exudates, no abscesses noted, mucous membrane moist Neck: Supple, non-tender, no thyromegaly, no masses, no JVD, no bruits Breast:Deferred Chest:No tenderness, no crepitus, no paradoxical movement, no retractions Lungs:Clear, wheezing to bilateral lung salgado, no rhonchi, no stridor, good breath sounds bilaterally Heart: Regular rate, regular rhythm, no murmur, no gallops Vascular: no peripheral edema, Abdomen: Soft, positive bowel sounds, nondistended, no guarding, nontender, no rebound, no masses no hepatomegaly, no splenomegaly, no Laughlin's sign, no hernias. Rectal: Deferred Genital: Deferred Neurological: Normal speech, motor function intact, sensory function intact Musculoskeletal: Neck nontender, full range of motion, back nontender, full range of motion, Extremities: nontender, full range of motion Skin: Color pink, dry, no turgor, no rash, no lacerations, no abrasions, no contusions. Lymphatic: Deferred Results Laboratory and Microbiology Lab and Micro Result Laboratory Tests Test 11/24/24 17:50 11/24/24 18:25 White Blood Count 6.5 K/uL (4.8-10.8) Red Blood Count 4.33 MIL/uL (4.00-5.50) Hemoglobin 11.7 g/dL (12.0-16.0) L Hematocrit 37.2 % (36-48) Mean Corpuscular Volume 85.9 fL (79-99) Mean Corpuscular Hemoglobin 27.0 pg (27.0-33.0) Mean Corpuscular Hemoglobin Concent 31.5 g/dL (32.0-36.0) L Red Cell Distribution Width 14.6 % (11.0-15.5) Platelet Count 185 K/uL (130-400) Mean Platelet Volume 11.7 fL (7.5-10.5) H Immature Granulocyte % (Auto) 0.2 % (0-1) Neutrophils (%) (Auto) 63.1 % (40.0-77.0) Lymphocytes (%) (Auto) 25.4 % (21.0-51.0) Monocytes (%) (Auto) 8.7 % (3.0-13.0) Eosinophils (%) (Auto) 2.0 % (0.0-8.0) Basophils (%) (Auto) 0.6 % (0.0-5.0) Neutrophils # (Auto) 4.1 K/uL (1.8-7.7) Lymphocytes # (Auto) 1.6 K/uL (1.0-4.8) Monocytes # (Auto) 0.6 K/uL (0.1-1.0) Eosinophils # (Auto) 0.13 K/uL (0.00-0.70) Basophils # (Auto) 0.04 K/uL (0.00-0.20) Absolute Immature Granulocyte (auto 0.01 K/uL (0-1) Nucleated Red Blood Cells 0.0 % (0.0-0.19) Sodium Level 139 mmol/L (136-145) Potassium Level 4.3 mmol/L (3.5-5.1) Chloride Level 104 mmol/L (101-111) Carbon Dioxide Level 26 mmol/L (21-32) Blood Urea Nitrogen 13 mg/dL (7-18) Creatinine 0.7 mg/dL (0.5-1.0) Glomerular Filtration Rate Calc 89 mL/min (>90) Random Glucose 120 mg/dL (70-105) H Total Calcium 8.6 mg/dL (8.5-10.1) Magnesium Level 2.30 mg/dL (1.80-2.40) Troponin I High Sensitivity 24 ng/L (4-50) B-Type Natriuretic Peptide 56 pg/mL (0-100) Influenza Type A Antigen Negative For Type A Influenza Type B Antigen Negative For Type B SARS-CoV-2, RNA, NAAT NEGATIVE SARS CoV-2 Labs Reviewed?: Yes MDM MDM: Differential diagnosis: COPD exacerbation, dehydration, CHF exacerbation, pneu monia Rationale: Tests considered and ordered secondary to shared decision making include: Previous outside records reviewed: Old ER visits. Risk of complication and/or morbidity or mortality of patient management: None Medications-Per medication reconciliation Need for hospitalization: Patient does meet criteria for hospitalization. Need for emergency major/minor surgery: No There are no social concerns with this patient. Prescription drug management Prescriptions will include symptomatic care Patient's prior external medical records from other ER visits were reviewed by me as indicated. Prior testing and results from previous visits were reviewed. Prior tests were taken into account with medical decision making and resource utilization, independent historian/historians were used to obtain complete medical history. I independently interpreted the test that were performed, results were reviewed by me and considered findings on radiology if ordered. Medical management and examination interpretation discussions were had by me with other qualified healthcare professionals as indicated for the patient's care. ED Course Orders Procedure Category Date Status Time 12 Lead Ekg Tracing- EKG 11/24/24 Logged Technical 17:24 12 Lead Ekg Tracing- EKG 11/24/24 Logged Technical 17:42 Cbc With Differential LAB 11/24/24 Complete 17:42 Basic Metabolic Panel LAB 11/24/24 Complete 17:42 B-Type Natriuretic LAB 11/24/24 Complete Peptide 17:42 Covid Rna Naat LAB 11/24/24 Complete 17:42 Influenza Type A & B, LAB 11/24/24 Complete Rapid 17:42 Magnesium LAB 11/24/24 Complete 17:42 Troponin I High LAB 11/24/24 Complete Sensitivity 17:42 Chest 1vw RAD 11/24/24 Resulted 17:42 Acetaminophen 500mg PHA 11/24/24 Complete Tab (Tylenol 500mg T 18:00 Ipratropium/Albuterol PHA 11/24/24 Complete Neb (Duoneb) 18:00 Methylprednisolone PHA 11/24/24 Complete Succ 125mg (Solu-Medr 18:00 Ct Head/Brain W/O CT 11/24/24 Resulted Contrast 17:42 Ketorolac PHA 11/24/24 Complete Tromethamine 15mg/Ml 21:30 Current Medications Medications (Trade) Dose Ordered Sig/Emelina Route PRN Reason Start Time Stop Time Status Last Admin Dose Admin Acetaminophen (TYLenol 500MG TAB) 1,000 mg ONCE ONCE PO 11/24/24 18:00 11/24/24 18:01 DC 11/24/24 18:07 Albuterol (DUOneb) 1 UDVIAL ONCE ONCE IH 11/24/24 18:00 11/24/24 18:01 DC 11/24/24 18:35 Ketorolac Tromethamine (toRADol) 15 mg ONCE ONCE IV 11/24/24 21:30 11/24/24 21:31 DC 11/24/24 21:35 Methylprednisolone Sodium Succinate (Solu-medROL 125MG) 125 mg ONCE ONCE IVP 11/24/24 18:00 11/24/24 18:01 DC 11/24/24 18:07 Vital Signs Date Time Temp Pulse Resp B/P (MAP) Pulse Ox O2 Delivery O2 Flow Rate FiO2 11/24/24 20:40 98.4 74 18 124/85 94 Room Air* 0 21 11/24/24 18:35 69 18 11/24/24 17:31 98.1 84 17 189/85 96 Room Air* 0 11/24/24 17:09 97.9 87 22 181/84 96 Room Air DX & DISP Disposition: Inpatient Departure Impression: Primary Impression: COPD exacerbation Condition: Stable Referrals: HERMES ROSALES (PCP) I have reviewed the case, and I agree with, Diagnosis and Plan I performed the substantive portion of the visit. I have reviewed and personally made and approve the management plan that is documented in the note by myself or the JUAN CARLOS. I acknowledge for responsibility for the patient's management plan. ESTRELLITA RIVERA Nov 24, 2024 23:24
--- NOTE | 2024-11-24 23:59 | NUR ---
REPORT GIVEN TO LYUBOV NICHOLS
[2024-11-25] VITALS (15 sets, daily range): BP systolic 137–178; BP diastolic 65–91; PULSE 63–112; RESP 16–18; TEMP 97.5–98.5; O2SAT 94–98
[2024-11-25] MEDS: SODIUM CHLORIDE 3% FOR INHALATION 4 ML/AMP VIAL.NEB IH ONE ×3 (01:08→11:40)
[2024-11-25 05:21] LABS: IMMATURE GRANULOCYTE ABSOLUTE 0.03 K/uL (0-1); NUCLEATED RED BLOOD CELLS 0.0 % (0.0-0.19); PLATELET COUNT (AUTO) 187 K/uL (130-400); RED BLOOD CELL COUNT(AUTO) 4.09 MIL/uL (4.00-5.50); RED CELL DISTRIBUTION WIDTH 14.6 % (11.0-15.5); WHITE BLOOD COUNT (AUTO) 6.9 K/uL (4.8-10.8)
[2024-11-25 05:49] LABS: CREATININE 0.9 mg/dL (0.5-1.0); GLOMERULAR FILTR. RATE CALC 66.0 mL/min (>90); GLUCOSE,RANDOM 152.0 mg/dL (70-105); PHOSPHORUS 3.3 mg/dL (2.5-4.9); SODIUM SERUM 137.0 mmol/L (136-145); UREA NITROGEN, BLOOD 13.0 mg/dL (7-18)
[2024-11-25] MEDS: BUDESONIDE 0.5 MG/2 ML INH IH SCH (06:27)
[2024-11-25] MEDS: FAMOTIDINE 20MG TAB PO SCH (08:22)
[2024-11-25] MEDS: ENOXAPARIN SODIUM 40 MG/0.4 ML SYRINGE SQ SCH (08:22)
--- NOTE | 2024-11-25 10:05 | EKG ---
[facility] Test Date: 2024-11-24 Test Time: 17:19:07 Pat Name: JORGE ALVARADO Department: [facility] Room: 430 1 Gender: F Cinder Worker: [id number] : [id number] Requested By: NOBLE HARPER Order Number: [id number] Reading MD: Yon Zeng Measurements Intervals Reynolds Rate: 85 P: 2 FL: 154 QRS: -51 QRSD: 104 T: 114 QT: 376 QTc: 447 Interpretive Statements Sinus rhythm Atrial premature complex LAD, consider left anterior fascicular block LVH with secondary repolarization abnormality Anterior Q waves, possibly due to LVH Compared to ECG 03/18/2024 16:44:14 Atrial premature complex(es) now present Electronically Signed On 11-25-2024 11:38:57 CDT by Yon Zeng Please click the below link to view image of tracing.
[2024-11-25] MEDS: 0.9%NACL 1000ML 1,000 ML IV SCH (11:22)
[2024-11-25] MEDS ORDERED: IOHEXOL-350 50ML VIAL IV ONE (12:02)
[2024-11-25] MEDS: LACTULOSE 20 GM/30 ML UDCUP PO PRN (15:30)
[2024-11-25] MEDS ORDERED: LEVO125T11 PO (16:11)
[2024-11-25] MEDS ORDERED: QUET100T34 PO (16:11)
[2024-11-25] MEDS ORDERED: BACL10TA PO (16:11)
[2024-11-25] MEDS ORDERED: BUSP15TA3 PO (16:11)
[2024-11-25] MEDS ORDERED: QUET200T30 PO (16:11)
[2024-11-25] MEDS ORDERED: VITAMIN D (16:11)
[2024-11-25] MEDS ORDERED: PANT20TA18 PO (16:11)
[2024-11-25] MEDS ORDERED: LOSA100T59 PO (16:11)
[2024-11-25] MEDS ORDERED: CLON0.1T PO (16:11)
[2024-11-25] MEDS ORDERED: PRED5DRO25 OD (16:16)
[2024-11-25] MEDS ORDERED: SODI15DR8 OS (16:16)
[2024-11-25] MEDS ORDERED: DAPA10TA PO (16:16)
[2024-11-25] MEDS ORDERED: ACYC-429 PO (16:16)
[2024-11-25] MEDS ORDERED: CARB30DR OP (16:18)
[2024-11-25] MEDS ORDERED: MIEBO OU (16:22)
[2024-11-25] MEDS ORDERED: QUETIAPINE FUMARATE 150 MG PO SCH (18:00)
[2024-11-25] MEDS ORDERED: BACLOFEN 10 MG TABLET PO PRN (18:00)
[2024-11-25] MEDS: THIAMINE HCL 100 MG TABLET PO SCH (18:28)
[2024-11-25] MEDS: MAG/ALUM/SIMETH 30 ML UDCUP PO ONE (20:02)
[2024-11-25] MEDS: ACYCLOVIR 200 MG CAPSULE PO SCH (21:00)
[2024-11-25] MEDS ORDERED: ACYCLOVIR PO SCH (21:00)
[2024-11-25] MEDS ORDERED: NON-FORMULARY MEDICATION 1 EACH (Buspirone HCl 15 MG) PO SCH (21:00)
--- NOTE | 2024-11-25 21:58 | PN ---
[facility] PROGRESS NOTE Date of Service: Nov 25, 2024 Time of Service: 21:58 SUBJECTIVE: 78-year-old female with past medical history of type 2 diabetes, hyperlipidemia, hypertension, hypothyroidism ,GERD, h/o Herpes on chronic acyclovir therapy,? underlying COPD presented to emergency department with complaints of shortness of breath,generalized body weakness for past 3 days . Shortness of breath was sudden , constant, with no changes in body posture. History obtained from the patient . Patient also reports that she has been experiencing generalized headache radiating to the nape of neck, sharp in character, significant enough to cause frequent position changes during her sleep for past 2 months . She reports nausea which she attributes to her history of GERD.She also complains of chronic cough . No associated vomiting, photosensitivity , aura ,discharge from eyes or nose reported.She denies, hemoptysis, change in body weight or fevers. At the time of presentation, temperature was 97.9 F, pulse rate87 per minute, respiratory rate 22 per minute blood pressure 181/84 mmHg pulse oximetry 96% on room air. Labs remarkable for WBC 4.3, hemoglobin 10.5, A1c 6.2, troponin 24, BNP 56. Chest x-ray showed right lower lobe patchy opacities. Patient was admitted for further evaluation and management of shortness of breaths and headache. 11/25/2024: Patient is seen and evaluated at the bedside. She states that she also has a history of chronic alcoholism and urinary incontinence. She reported severe headache, with no significant change after the admission. Her labs are unremarkable today. She is being treated with morphine pain and levofloxacin for empirical antibiotic coverage for possible pneumonia. CT head showed no acute pathology- mm osteoma left parietal bone, possible left frontal arachnoid cyst. CT chest and respiratory cultures are pending. Dr. Arellano suggested Fioricet- which is not available in the pharmacy, hence she is being treated with Tylenol for moderate pain 3 times daily schedule dose in addition to morphine for severe headache. Pending cervical spine x-ray. Patient has been on clonidine and chronic acyclovir therapy which could be a cause for headache. Planning to taper the clonidine dose after ruling out major causes of headache and to see for improvement. REVIEW OF SYSTEMS CONSTITUTIONAL: Denies fevers, chills, or night sweats. No unintentional weight loss reported. NEUROLOGICAL: Denies headache, amaurosis fugax, motor weakness, sensory deficit, vertigo/spinning sensation, gait abnormalities, or tremors. ENT: No hearing loss, otalgia, otorrhea, rhinitis, rhinorrhea, hoarseness, or sore throat. CARDIOVASCULAR: Denies any exertional angina, dyspnea on exertion, orthopnea, paroxysmal nocturnal dyspnea, palpitations, life-threatening arrhythmias, claudication. PULMONARY: Denies any shortness of breath, cough, phlegm/sputum, hemoptysis, pleuritic chest pain. SLEEP: Denies morning headaches, daytime somnolence or napping. Denies difficulty falling asleep, staying asleep, waking from sleep. Denies knowledge of snoring. GASTROINTESTINAL: Denies any type of dysphagia to either liquids or solids. Denies nausea, vomiting, pyrosis, early satiety, abdominal pain, diarrhea, constipation, or changes in stool consistency or caliber. Denies coffee-ground emesis, hematemesis, hematochezia, or melanotic stools. GENITOURINARY: Denies frequency, urgency, nocturia, hematuria or incontinence (Storage/Irritative symptoms.) Low urinary stream, straining to void, urinary intermittency or hesitancy, splitting of the voiding stream, terminal dribbling. ENDOCRINOLOGIC: Denies polyuria, polydipsia, polyphagia or heat/cold intolerances. HEMATOLOGIC: Denies thrombophilia/previous clots, or coagulopathy/bleeding disorders. ONCOLOGIC: Denies personal history of malignancy. DERMATOLOGIC: Denies rashes or pruritus. PSYCHIATRIC: Denies any suicidal or homicidal ideation. Denies hallucinations. PHYSICAL EXAM GENERAL APPEARANCE: The patient is awake, alert, and oriented, in no acute cardiopulmonary distress. NEUROLOGICAL: Cranial nerves II-XII grossly intact. Motor is 5/5 in bilateral upper and lower extremities proximal to distal. No sensory deficits. HEENT: Face is symmetric. Pupils are equal and reactive. Extraocular movements are intact. NECK: Supple. No JVD. No thyromegaly. Bilateral supraclavicular area fullness CHEST: Normal chest expansion. No Telemetry. LUNGS: Absence of any rales, rhonchi or any wheezing. CARDIOVASCULAR: Regular. S1 and S2 normal. No appreciable rubs, murmurs or gallops. ABDOMEN: Soft, nontender, and nondistended. There is no rebound, voluntary guarding, or rigidity. : Deferred. No Baeza. EXTREMITIES: Non-edematous and not cyanotic. No clubbing. Good capillary refill. SKIN: No skin breakdown. Vital Signs (last 8hr) Date Time Temp Pulse Resp B/P (MAP) Pulse Ox O2 Delivery O2 Flow Rate FiO2 11/25/24 18:52 149/66 11/25/24 18:20 98 18 11/25/24 18:20 98 18 N/A Room Air 21 11/25/24 17:43 94 149/66 11/25/24 16:00 98.1 91 17 174/91 98 Room Air LABS: Laboratory: Test 11/25/24 19:36 11/25/24 08:42 11/25/24 05:03 11/24/24 18:25 Range/Units Whole Blood Glucose 143 H 70-110 MG/DL Lactic Acid Level 1.8 0.8-2.5 mmol/L C-Reactive Protein, Quantitative 2.40 0.5-3.0 mg/L White Blood Count 6.9 4.8-10.8 K/uL Red Blood Count 4.09 4.00-5.50 MIL/uL Hemoglobin 11.2 L 12.0-16.0 g/dL Hematocrit 35.4 L 36-48 % Mean Corpuscular Volume 86.6 79-99 fL Mean Corpuscular Hemoglobin 27.4 27.0-33.0 pg Mean Corpuscular Hemoglobin Concent 31.6 L 32.0-36.0 g/dL Red Cell Distribution Width 14.6 11.0-15.5 % Platelet Count 187 130-400 K/uL Mean Platelet Volume 12.0 H 7.5-10.5 fL Immature Granulocyte % (Auto) 0.4 0-1 % Neutrophils (%) (Auto) 89.7 H 40.0-77.0 % Lymphocytes (%) (Auto) 7.1 L 21.0-51.0 % Monocytes (%) (Auto) 2.8 L 3.0-13.0 % Eosinophils (%) (Auto) 0.0 0.0-8.0 % Basophils (%) (Auto) 0.0 0.0-5.0 % Neutrophils # (Auto) 6.2 1.8-7.7 K/uL Lymphocytes # (Auto) 0.5 L 1.0-4.8 K/uL Monocytes # (Auto) 0.2 0.1-1.0 K/uL Eosinophils # (Auto) 0.00 0.00-0.70 K/uL Basophils # (Auto) 0.00 0.00-0.20 K/uL Absolute Immature Granulocyte (auto 0.03 0-1 K/uL Nucleated Red Blood Cells 0.0 0.0-0.19 % White Cell Morphology Comment See comments Sodium Level 137 136-145 mmol/L Potassium Level 4.1 3.5-5.1 mmol/L Chloride Level 100 L 101-111 mmol/L Carbon Dioxide Level 27 21-32 mmol/L Blood Urea Nitrogen 13 7-18 mg/dL Creatinine 0.9 0.5-1.0 mg/dL Glomerular Filtration Rate Calc 66 >90 mL/min Random Glucose 152 H 70-105 mg/dL Total Calcium 8.9 8.5-10.1 mg/dL Phosphorus Level 3.3 2.5-4.9 mg/dL Magnesium Level 2.20 1.80-2.40 mg/dL Thyroid Stimulating Hormone (TSH) 0.40 0.36-3.74 uIU/mL Influenza Type A Antigen Negative For Type A NEGATIVE Influenza Type B Antigen Negative For Type B NEGATIVE SARS-CoV-2, RNA, NAAT NEGATIVE SARS CoV-2 NEGATIVE Test 11/24/24 17:50 Range/Units Hemoglobin A1c 6.2 H 4.0-6.0 % Estimated Average Glucose (eAG) 131 H 70-126 mg/dL Troponin I High Sensitivity 24 4-50 ng/L B-Type Natriuretic Peptide 56 0-100 pg/mL Current Medications Medications (Trade) Dose Ordered Sig/Emelina Route PRN Reason Start Time Stop Time Status Last Admin Dose Admin Acetaminophen (TYLenol 325MG TAB) 650 mg Q6H PRN PO TEMPERATURE GREATER THAN 101.5 11/25/24 00:00 12/25/24 00:00 Acetaminophen (TYLenol 325MG TAB) 650 mg TID PO 11/25/24 21:00 11/26/24 20:59 Acyclovir (Zovirax 200mg Cap) 400 mg BID PO 11/25/24 21:00 12/25/24 20:59 Albuterol (DUOneb) 1 UDVIAL G7KCACE IH 11/25/24 00:00 12/25/24 00:00 11/25/24 18:17 1 UDVIAL Atorvastatin Calcium (LIPItor 40MG) 40 mg HS PO 11/25/24 21:00 12/25/24 20:59 Baclofen (Baclofen) 10 mg DAILY PRN PO MUSCLE SPASMS 11/25/24 18:00 12/25/24 17:59 Budesonide (Pulmicort 0.5 Mg/2ml) 0.5 mg BIDRESP IH 11/25/24 06:00 12/25/24 05:59 11/25/24 18:18 0.5 MG Buspirone HCl (BUspar) 15 mg HS PO 11/25/24 21:00 12/25/24 20:59 Clonidine HCl (CATApres 0.1 mg TAB) 0.1 mg Q12H9 PO 11/25/24 19:00 12/25/24 18:59 11/25/24 18:52 0.1 MG Enoxaparin Sodium (Lovenox) 40 mg DAILY SQ 11/25/24 09:00 12/25/24 08:59 11/25/24 08:22 40 MG Famotidine (Pepcid 20mg Tab) 20 mg DAILY PO 11/25/24 09:00 12/25/24 08:59 11/25/24 08:22 20 MG Guaifenesin (RobiTUSSin SUGAR-FREE 100 MG/ 5 ML UDCUP) 400 mg Q4H PRN PO cough 11/25/24 00:00 12/25/24 00:00 Home Med (Home Medication) Q2HWA OP 11/26/24 09:00 12/26/24 08:59 Hydralazine HCl (APRESOLine 20MG INJ) 10 mg Q6H PRN IV For:SBP above 160;DBP above 90 11/25/24 00:00 12/25/24 00:00 11/25/24 17:22 10 MG Insulin Human Regular (humuLIN R 100 UNIT/ML 3ML) INSULIN SLIDING SCAL... ACHS SQ 11/25/24 07:30 12/25/24 07:29 Lactulose (Constulose 20gm/ 30ml Udcup) 20 gm BID PRN PO CONSTIPATION 11/25/24 00:00 12/25/24 00:00 11/25/24 15:30 20 GM Levofloxacin/ Dextrose (LEvaquIN 750 MG/ D5W 150 ML) 750 mg Q24H IV 11/25/24 00:00 12/05/24 00:00 11/25/24 00:34 750 MG Levothyroxine Sodium (SYNTHroid 125MCG TAB) 125 mcg DAILY PO 11/26/24 09:00 12/26/24 08:59 Losartan Potassium (CozAAR 100MG TAB) 100 mg DAILY PO 11/25/24 18:00 12/25/24 17:59 11/25/24 18:28 100 MG Miscellaneous Medication (Acyclovir ) 1 tab BID PO 11/25/24 21:00 11/25/24 18:25 DC Miscellaneous Medication (Buspirone HCl ) 15 mg HS PO 11/25/24 21:00 11/25/24 18:25 DC Miscellaneous Medication (Prednisolone Acetate/Pf (Prednisolone Acet 1% Eye Drop)) 1 drop QODAY OD 11/27/24 09:00 11/25/24 18:42 DC Miscellaneous Medication (Quetiapine Fumarate ) 150 mg IN AM PO 11/25/24 18:00 11/25/24 18:25 DC Morphine Sulfate (morPHINE 4MG SYG) 2 mg Q4H PRN IVP SEVERE PAIN (7-10) 11/25/24 00:00 12/02/24 00:00 11/25/24 20:35 2 MG Ondansetron HCl (zoFRAN 4MG INJ) 4 mg Q6H PRN IV NAUSEA/VOMITING 11/25/24 00:00 12/25/24 00:00 11/25/24 18:09 4 MG Prednisolone Acetate (PREDforte 1% DROPS) 1 DROP IN RIGHT EYE EV... QODAY OP 11/27/24 09:00 12/27/24 08:59 Quetiapine Fumarate (SEROquel 100 mg TAB) 100 mg HS PO 11/25/24 21:00 12/25/24 20:59 Quetiapine Fumarate (SEROquel 100 mg TAB) 150 mg AM PO 11/26/24 09:00 12/26/24 08:59 Sodium Chloride 1,000 ml @ 75 mls/hr [id number] IV 11/25/24 08:30 12/25/24 08:29 11/25/24 11:22 75 MLS/HR Sodium Chloride (Oren-128 5% Ophth Soln) 1 DROP IN LEFT EYE DAILY DAILY OS 11/26/24 09:00 12/26/24 08:59 Thiamine HCl (Vitamin B-1) 100 mg DAILY PO 11/25/24 18:00 12/25/24 17:59 11/25/24 18:28 100 MG DIAGNOSTICS / RADIOLOGY: [ ] ASSESSMENT: Shortness of breaths secondary to community-acquired pneumonia , POA Generalized headache: To rule out secondary to medication adverse effect, POA Generalized weakness secondary to pneumonia, POA Hypertension GERD Drop in hemoglobin, POA Diabetes mellitus type 2 PLAN: Shortness of breaths secondary to community-acquired pneumonia , POA Generalized weakness secondary to pneumonia, POA -pending respiratory culture -Continue levofloxacin, DuoNebs -pending CT chest results Generalized headache: To rule out medication adverse effect, POA Pending cervical spine x-ray Patient on chronic clonidine and acyclovir therapy Continue pain management as directed Others P.r.n. medications for: Pain management, fever, nausea, vomiting, constipation, hypertension. Monitor kidney and liver function. Monitor electrolytes and treat accordingly. Oxygen as needed to keep SpO2 equal to greater than 92%. Glucometer checks a.c. and HS with insulin regular sliding scale coverage as needed per protocol. Blood pressure checks every4 hours and as needed. Reconciled home medications. Continue home medications as directed A.m. labs: CBC, BMP, CRP, Lactic acid, ESR . GI and DVT prophylaxis: Protonix and SCDs ATTESTATION BY PHYSICIAN I have seen and examined the patient. I reviewed the documentation, medical decision making, and treatment plan as noted by the resident provider above. I agree with the findings and plan of care. Donn Laughlin MD, ANCHU A MD Nov 25, 2024 21:58
--- NOTE | 2024-11-25 22:02 | NUR ---
hs meds unable to give pt night medications d/t severe nausea.
[2024-11-25] MEDS: PROMETHAZINE HCL 25 MG/ML 1ML AMPULE IM PRN (22:22)
[2024-11-26] VITALS (9 sets, daily range): BP systolic 129–152; BP diastolic 44–94; PULSE 60–105; RESP 16–20; TEMP 98–98.5; O2SAT 92–99
[2024-11-26 05:14] LABS: NUCLEATED RED BLOOD CELLS 0.0 % (0.0-0.19); PLATELET COUNT (AUTO) 207.0 K/uL (130-400); RED BLOOD CELL COUNT(AUTO) 4.2 MIL/uL (4.00-5.50); RED CELL DISTRIBUTION WIDTH 14.8 % (11.0-15.5); WHITE BLOOD COUNT (AUTO) 10.5 K/uL (4.8-10.8)
[2024-11-26 05:33] LABS: ASPARTATE AMINOTRANSFERASE 18.0 U/L (10-37); CREATININE 0.8 mg/dL (0.5-1.0); GLOMERULAR FILTR. RATE CALC 76.0 mL/min (>90); GLUCOSE,RANDOM 121.0 mg/dL (70-105); SODIUM SERUM 135.0 mmol/L (136-145); TOTAL PROTEIN, SERUM 6.9 g/dL (6.0-8.3); UREA NITROGEN, BLOOD 11.0 mg/dL (7-18)
[2024-11-26 06:16] LABS: ERYTHROCYTE SEDIMENTATION RATE 15.0 MM/HR (0-30)
--- NOTE | 2024-11-26 07:20 | HMCIMG ---
EXAM: CT chest with and without contrast. CLINICAL HISTORY: Shortness of breath, bilateral perihilar shadows. TECHNIQUE: Thin collimated axial CT images of the chest were obtained with contrast with sagittal and coronal reformatted images also submitted. CT scan done according to ALARA (As Low as Reasonably Achievable). CONTRAST: Omnipaque 350. COMPARISON: CT dated June 03, 2022. FINDINGS: Mild atelectasis in the lower lobes, right middle lobe, and lingula. No collapse or consolidation. There are peribronchovascular areas of ground glass opacities in the right upper and both lower lobes. There are two to three nodules in the right lower lobe, the largest measuring approximately 5.8mm. No pleural effusions. No pericardial effusion. Mild cardiomegaly. Mild atherosclerotic changes in the aorta. No axillary, supraclavicular, or mediastinal lymphadenopathy. Limited views of the upper abdomen demonstrate a mild hiatus hernia. The bones under view show degenerative spondylotic changes in the spine. IMPRESSION: 1. Mild alveolitis in both lungs is likely a mild infective or inflammatory process. 2. Few lung nodules. Lung RADS category 2. Continue annual screening with LDCT. 3. No focal infiltrates. Subsegmental atelectasis bilaterally. 4. Cadiomegaly with mild atherosclerosis. 5. Mild hiatua hernia. Compared to the previous CT dated June 03, 2022, no significant interval change. /[place]
[2024-11-26] MEDS: FAMOTIDINE 20MG TAB PO SCH (08:02)
[2024-11-26] MEDS: SODIUM CHLORIDE 5% 15 ML OPHTH SOLN OS SCH (08:04)
[2024-11-26] MEDS: EYE OP SCH (10:19)
[2024-11-26] MEDS: CARBOXYMETHYLCELLULOSE SODIUM OP SCH (10:19)
--- NOTE | 2024-11-26 13:53 | PN ---
[facility] PROGRESS NOTE Date of Service: Nov 26, 2024 Time of Service: 13:53 SUBJECTIVE: 78-year-old female with past medical history of type 2 diabetes, hyperlipidemia, hypertension, hypothyroidism ,GERD, h/o Herpes on chronic acyclovir therapy,? underlying COPD presented to emergency department with complaints of shortness of breath,generalized body weakness for past 3 days . Shortness of breath was sudden , constant, with no changes in body posture. History obtained from the patient . Patient also reports that she has been experiencing generalized headache radiating to the nape of neck, sharp in character, significant enough to cause frequent position changes during her sleep for past 2 months . She reports nausea which she attributes to her history of GERD.She also complains of chronic cough . No associated vomiting, photosensitivity , aura ,discharge from eyes or nose reported.She denies, hemoptysis, change in body weight or fevers. At the time of presentation, temperature was 97.9 F, pulse rate87 per minute, respiratory rate 22 per minute blood pressure 181/84 mmHg pulse oximetry 96% on room air. Labs remarkable for WBC 4.3, hemoglobin 10.5, A1c 6.2, troponin 24, BNP 56. Chest x-ray showed right lower lobe patchy opacities. Patient was admitted for further evaluation and management of shortness of breaths and headache. 11/25/2024: Patient is seen and evaluated at the bedside. She states that she also has a history of chronic alcoholism and urinary incontinence. She reported severe headache, with no significant change after the admission. Her labs are unremarkable today. She is being treated with morphine pain and levofloxacin for empirical antibiotic coverage for possible pneumonia. CT head showed no acute pathology- mm osteoma left parietal bone, possible left frontal arachnoid cyst. CT chest and respiratory cultures are pending. Dr. Arellano suggested Fioricet- which is not available in the pharmacy, hence she is being treated with Tylenol for moderate pain 3 times daily schedule dose in addition to morphine for severe headache. Pending cervical spine x-ray. Patient has been on clonidine and chronic acyclovir therapy which could be a cause for headache. Planning to taper the clonidine dose after ruling out major causes of headache and to see for improvement. 11/26/24: Patient was seen and evaluated at the bedside. Patient appeared stable today however was mildly somnolent. She had no acute events overnight. Patient says her headache has improved. Patient says she has a past medical history of migraines and her headache resembled them. Patient also has neck pain and tenderness to palpation over cervical vertebrae. A cervical spine x- ray was performed today, pending results. Patient has been using clonidine for episodes of higher blood pressure. Plan is to wean off clonidine gradually. Patient's shortness of breath has improved, has mild cough without expectoration. Her CT chest showed mild alveolitis and few lung nodules, needing annual screening with low-dose CT. We will consider adding amlodipine if blood pressure is not controlled after weaning off clonidine. REVIEW OF SYSTEMS CONSTITUTIONAL: Denies fevers, chills, or night sweats. No unintentional weight loss reported. NEUROLOGICAL: Denies headache, amaurosis fugax, motor weakness, sensory deficit, vertigo/spinning sensation, gait abnormalities, or tremors. ENT: No hearing loss, otalgia, otorrhea, rhinitis, rhinorrhea, hoarseness, or sore throat. CARDIOVASCULAR: Denies any exertional angina, dyspnea on exertion, orthopnea, paroxysmal nocturnal dyspnea, palpitations, life-threatening arrhythmias, claudication. PULMONARY: Denies any shortness of breath, cough, phlegm/sputum, hemoptysis, pleuritic chest pain. SLEEP: Denies morning headaches, daytime somnolence or napping. Denies difficulty falling asleep, staying asleep, waking from sleep. Denies knowledge of snoring. GASTROINTESTINAL: Denies any type of dysphagia to either liquids or solids. Denies nausea, vomiting, pyrosis, early satiety, abdominal pain, diarrhea, constipation, or changes in stool consistency or caliber. Denies coffee-ground emesis, hematemesis, hematochezia, or melanotic stools. GENITOURINARY: Denies frequency, urgency, nocturia, hematuria or incontinence (Storage/Irritative symptoms.) Low urinary stream, straining to void, urinary intermittency or hesitancy, splitting of the voiding stream, terminal dribbling. ENDOCRINOLOGIC: Denies polyuria, polydipsia, polyphagia or heat/cold intolerances. HEMATOLOGIC: Denies thrombophilia/previous clots, or coagulopathy/bleeding disorders. ONCOLOGIC: Denies personal history of malignancy. DERMATOLOGIC: Denies rashes or pruritus. PSYCHIATRIC: Denies any suicidal or homicidal ideation. Denies hallucinations. PHYSICAL EXAM GENERAL APPEARANCE: The patient is awake, alert, and oriented, in no acute cardiopulmonary distress. NEUROLOGICAL: Cranial nerves II-XII grossly intact. Motor is 5/5 in bilateral upper and lower extremities proximal to distal. No sensory deficits. HEENT: Face is symmetric. Pupils are equal and reactive. Extraocular movements are intact. NECK: Supple. No JVD. No thyromegaly. Bilateral supraclavicular area fullness CHEST: Normal chest expansion. No Telemetry. LUNGS: Absence of any rales, rhonchi or any wheezing. CARDIOVASCULAR: Regular. S1 and S2 normal. No appreciable rubs, murmurs or gallops. ABDOMEN: Soft, nontender, and nondistended. There is no rebound, voluntary guarding, or rigidity. : Deferred. No Baeza. EXTREMITIES: Non-edematous and not cyanotic. No clubbing. Good capillary refi ll. SKIN: No skin breakdown. Vital Signs (last 8hr) Date Time Temp Pulse Resp B/P (MAP) Pulse Ox O2 Delivery O2 Flow Rate FiO2 11/26/24 11:26 98.4 77 20 131/94 100 Room Air 11/26/24 08:15 84 18 N/A Room Air 21 11/26/24 08:13 83 152/61 11/26/24 07:54 98.4 83 18 152/61 99 Room Air LABS: Laboratory: Test 11/26/24 10:54 11/26/24 05:07 11/25/24 08:42 11/25/24 05:03 Range/Units Whole Blood Glucose 98 70-110 MG/DL White Blood Count 10.5 4.8-10.8 K/uL Red Blood Count 4.20 4.00-5.50 MIL/uL Hemoglobin 11.6 L 12.0-16.0 g/dL Hematocrit 36.2 36-48 % Mean Corpuscular Volume 86.2 79-99 fL Mean Corpuscular Hemoglobin 27.6 27.0-33.0 pg Mean Corpuscular Hemoglobin Concent 32.0 32.0-36.0 g/dL Red Cell Distribution Width 14.8 11.0-15.5 % Platelet Count 207 130-400 K/uL Mean Platelet Volume 11.3 H 7.5-10.5 fL Nucleated Red Blood Cells 0.0 0.0-0.19 % Erythrocyte Sedimentation Rate 15 0-30 MM/HR Sodium Level 135 L 136-145 mmol/L Potassium Level 3.9 3.5-5.1 mmol/L Chloride Level 100 L 101-111 mmol/L Carbon Dioxide Level 26 21-32 mmol/L Blood Urea Nitrogen 11 7-18 mg/dL Creatinine 0.8 0.5-1.0 mg/dL Glomerular Filtration Rate Calc 76 >90 mL/min Random Glucose 121 H 70-105 mg/dL Lactic Acid Level 1.5 0.8-2.5 mmol/L Total Calcium 8.6 8.5-10.1 mg/dL Total Bilirubin 0.4 0.2-1.0 mg/dL Aspartate Amino Transf (AST/SGOT) 18 10-37 U/L Alanine Aminotransferase (ALT/SGPT) 24 12-78 U/L Alkaline Phosphatase 67 50-136 U/L Total Protein 6.9 6.0-8.3 g/dL Albumin 3.6 3.5-5.0 g/dL C-Reactive Protein, Quantitative 2.40 0.5-3.0 mg/L Immature Granulocyte % (Auto) 0.4 0-1 % Neutrophils (%) (Auto) 89.7 H 40.0-77.0 % Lymphocytes (%) (Auto) 7.1 L 21.0-51.0 % Monocytes (%) (Auto) 2.8 L 3.0-13.0 % Eosinophils (%) (Auto) 0.0 0.0-8.0 % Basophils (%) (Auto) 0.0 0.0-5.0 % Neutrophils # (Auto) 6.2 1.8-7.7 K/uL Lymphocytes # (Auto) 0.5 L 1.0-4.8 K/uL Monocytes # (Auto) 0.2 0.1-1.0 K/uL Eosinophils # (Auto) 0.00 0.00-0.70 K/uL Basophils # (Auto) 0.00 0.00-0.20 K/uL Absolute Immature Granulocyte (auto 0.03 0-1 K/uL White Cell Morphology Comment See comments Phosphorus Level 3.3 2.5-4.9 mg/dL Magnesium Level 2.20 1.80-2.40 mg/dL Thyroid Stimulating Hormone (TSH) 0.40 0.36-3.74 uIU/mL Test 11/24/24 18:25 11/24/24 17:50 Range/Units Influenza Type A Antigen Negative For Type A NEGATIVE Influenza Type B Antigen Negative For Type B NEGATIVE SARS-CoV-2, RNA, NAAT NEGATIVE SARS CoV-2 NEGATIVE Hemoglobin A1c 6.2 H 4.0-6.0 % Estimated Average Glucose (eAG) 131 H 70-126 mg/dL Troponin I High Sensitivity 24 4-50 ng/L B-Type Natriuretic Peptide 56 0-100 pg/mL Current Medications Medications (Trade) Dose Ordered Sig/Emelina Route PRN Reason Start Time Stop Time Status Last Admin Dose Admin Acetaminophen (TYLenol 325MG TAB) 650 mg Q6H PRN PO TEMPERATURE GREATER THAN 101.5 11/25/24 00:00 12/25/24 00:00 Acetaminophen (TYLenol 325MG TAB) 650 mg TID PO 11/25/24 21:00 11/26/24 20:59 11/26/24 08:00 650 MG Acyclovir (Zovirax 200mg Cap) 400 mg BID PO 11/25/24 21:00 12/25/24 20:59 11/26/24 08:02 400 MG Albuterol (DUOneb) 1 UDVIAL [id number] IH 11/25/24 00:00 12/25/24 00:00 11/25/24 22:53 1 UDVIAL Atorvastatin Calcium (LIPItor 40MG) 40 mg HS PO 11/25/24 21:00 12/25/24 20:59 Baclofen (Baclofen) 10 mg DAILY PRN PO MUSCLE SPASMS 11/25/24 18:00 12/25/24 17:59 Budesonide (Pulmicort 0.5 Mg/2ml) 0.5 mg BIDRESP IH 11/25/24 06:00 12/25/24 05:59 11/25/24 18:18 0.5 MG Buspirone HCl (BUspar) 15 mg HS PO 11/25/24 21:00 12/25/24 20:59 Clonidine HCl (CATApres 0.1 mg TAB) 0.1 mg Q12H9 PO 11/25/24 19:00 12/25/24 18:59 11/26/24 08:13 0.1 MG Enoxaparin Sodium (Lovenox) 40 mg DAILY SQ 11/25/24 09:00 12/25/24 08:59 11/26/24 08:03 40 MG Famotidine (Pepcid 20mg Tab) 20 mg DAILY PO 11/25/24 09:00 11/25/24 23:40 DC 11/25/24 08:22 20 MG Famotidine (Pepcid 20mg Tab) 20 mg Q24H PO 11/26/24 09:00 12/26/24 08:59 11/26/24 08:02 20 MG Guaifenesin (RobiTUSSin SUGAR-FREE 100 MG/ 5 ML UDCUP) 400 mg Q4H PRN PO cough 11/25/24 00:00 12/25/24 00:00 Home Med (Home Medication) Q2HWA OP 11/26/24 09:00 12/26/24 08:59 11/26/24 10:20 1 EACH Hydralazine HCl (APRESOLine 20MG INJ) 10 mg Q6H PRN IV For:SBP above 160;DBP above 90 11/25/24 00:00 12/25/24 00:00 11/25/24 17:22 10 MG Insulin Human Regular (humuLIN R 100 UNIT/ML 3ML) INSULIN SLIDING SCAL... ACHS SQ 11/25/24 07:30 12/25/24 07:29 Lactulose (Constulose 20gm/ 30ml Udcup) 20 gm BID PRN PO CONSTIPATION 11/25/24 00:00 12/25/24 00:00 11/25/24 15:30 20 GM Levofloxacin/ Dextrose (LEvaquIN 750 MG/ D5W 150 ML) 750 mg Q24H IV 11/25/24 00:00 12/05/24 00:00 11/26/24 00:09 750 MG Levothyroxine Sodium (SYNTHroid 125MCG TAB) 125 mcg DAILY PO 11/26/24 09:00 12/26/24 08:59 11/26/24 08:03 125 MCG Losartan Potassium (CozAAR 100MG TAB) 100 mg DAILY PO 11/25/24 18:00 12/25/24 17:59 11/26/24 08:03 100 MG Miscellaneous Medication (Acyclovir ) 1 tab BID PO 11/25/24 21:00 11/25/24 18:25 DC Miscellaneous Medication (Buspirone HCl ) 15 mg HS PO 11/25/24 21:00 11/25/24 18:25 DC Miscellaneous Medication (Prednisolone Acetate/Pf (Prednisolone Acet 1% Eye Drop)) 1 drop QODAY OD 11/27/24 09:00 11/25/24 18:42 DC Miscellaneous Medication (Quetiapine Fumarate ) 150 mg IN AM PO 11/25/24 18:00 11/25/24 18:25 DC Morphine Sulfate (morPHINE 4MG SYG) 2 mg Q4H PRN IVP SEVERE PAIN (7-10) 11/25/24 00:00 12/02/24 00:00 11/25/24 20:35 2 MG Ondansetron HCl (zoFRAN 4MG INJ) 4 mg Q6H PRN IV NAUSEA/VOMITING 11/25/24 00:00 12/25/24 00:00 11/25/24 18:09 4 MG Prednisolone Acetate (PREDforte 1% DROPS) 1 DROP IN RIGHT EYE EV... QODAY OP 11/27/24 09:00 12/27/24 08:59 Promethazine HCl (Phenergan) 25 mg Q6H PRN IM NAUSEA/VOMITING 11/25/24 22:30 12/25/24 22:29 11/26/24 08:13 25 MG Quetiapine Fumarate (SEROquel 100 mg TAB) 100 mg HS PO 11/25/24 21:00 12/25/24 20:59 Quetiapine Fumarate (SEROquel 100 mg TAB) 150 mg AM PO 11/26/24 09:00 12/26/24 08:59 11/26/24 08:10 150 MG Sodium Chloride 1,000 ml @ 75 mls/hr [id number] IV 11/25/24 08:30 12/25/24 08:29 11/26/24 10:18 75 MLS/HR Sodium Chloride (Oren-128 5% Oph Soln) 1 DROP IN LEFT EYE DAILY DAILY OS 11/26/24 09:00 12/26/24 08:59 11/26/24 08:04 1 DROP Thiamine HCl (Vitamin B-1) 100 mg DAILY PO 11/25/24 18:00 12/25/24 17:59 11/26/24 08:02 100 MG DIAGNOSTICS / RADIOLOGY: [ ] PATIENT: BRINEGAR,JORGE FAY MR#: [id number] : 1945 SEX: F AGE: 78 LOCATION: 4AH ORDER 8 STATUS: ADM IN REPORT#: [id number] SERVICE 4 REASON: SOB, CXR- BILATERAL POERIHILAR SHADOWS ORDERING PHYSICIAN: MAIA BAUMANN MD PROCEDURE: CHEST WWO - CT CHEST W/WO CONTRAST EXAM: CT chest with and without contrast. CLINICAL HISTORY: Shortness of breath, bilateral perihilar shadows. TECHNIQUE: Thin collimated axial CT images of the chest were obtained with contrast with sagittal and coronal reformatted images also submitted. CT scan done according to ALARA (As Low as Reasonably Achievable). CONTRAST: Omnipaque 350. COMPARISON: CT dated June 03, 2022. FINDINGS: Mild atelectasis in the lower lobes, right middle lobe, and lingula. No collapse or consolidation. There are peribronchovascular areas of ground glass opacities in the right upper and both lower lobes. There are two to three nodules in the right lower lobe, the largest measuring approximately 5.8mm. No pleural effusions. No pericardial effusion. Mild cardiomegaly. Mild atherosclerotic changes in the aorta. No axillary, supraclavicular, or mediastinal lymphadenopathy. Limited views of the upper abdomen demonstrate a mild hiatus hernia. The bones under view show degenerative spondylotic changes in the spine. IMPRESSION: 1. Mild alveolitis in both lungs is likely a mild infective or inflammatory process. 2. Few lung nodules. Lung RADS category 2. Continue annual screening with LDCT. 3. No focal infiltrates. Subsegmental atelectasis bilaterally. 4. Cadiomegaly with mild atherosclerosis. 5. Mild hiatua hernia. Compared to the previous CT dated June 03, 2022, no significant interval change. /[facility] DICTATED BY: JULITA LEE MD DATE: 11/26/24819 ELECTRONICALLY SIGNED BY: JULITA LEE MD DATE: 08/25/25 0820 ASSESSMENT: Shortness of breath secondary to community-acquired pneumonia , POA Generalized headache: To rule out secondary to medication adverse effect, POA Generalized weakness secondary to pneumonia, POA Hypertension GERD Hypothyroidism, POA History of migraine headaches Drop in hemoglobin, POA Diabetes mellitus type 2 PLAN: Shortness of breath secondary to community-acquired pneumonia , POA Generalized weakness secondary to pneumonia, POA -pending respiratory culture -Continue levofloxacin, DuoNebs -CT chest showed mild alveolitis and few lung nodules rads category 2, needing and screening with low-dose CT. Generalized headache: To rule out medication adverse effect, POA cervical spine x-ray done, results pending Patient on chronic clonidine and acyclovir therapy Change clonidine 0.1 mg to once daily and taper Start amlodipine 5 mg once daily Continue pain management as directed Others P.r.n. medications for: Pain management, fever, nausea, vomiting, constipation, hypertension. Monitor kidney and liver function. Monitor electrolytes and treat accordingly. Oxygen as needed to keep SpO2 equal to greater than 92%. Glucometer checks a.c. and HS with insulin regular sliding scale coverage as needed per protocol. Blood pressure checks every4 hours and as needed. Reconciled home medications. Continue home medications as directed Continue Synthyroid 125mcg A.m. labs: CBC, BMP, CRP, Lactic acid, ESR . GI and DVT prophylaxis: Protonix and SCDs ATTESTATION BY PHYSICIAN I have seen and examined the patient. I reviewed the documentation, medical decision making, and treatment plan as noted by the resident provider above. I agree with the findings and plan of care. Donn Laughlin MD, HARSHAVARDHA MD Nov 26, 2024 13:53 DARYN ANDRADE MD Nov 26, 2024 22:51
--- NOTE | 2024-11-26 19:25 | HMCIMG ---
CLINICAL INFORMATION Neck pain COMPARISON None. TECHNIQUE AP, lateral, and odontoid view of the cervical spine FINDINGS Vertebral Body Height: Normal. Alignment: Normal. Disc spaces: Mild/moderate multilevel disc height loss, worst at C5-C6. Posterior Elements: Moderate to severe multilevel facet arthrosis. Soft Tissues: Normal. Other: None. IMPRESSION Mild/moderate cervical spondylosis, worse at C5-C6. No evidence for acute osseous abnormality. If there is persistent clinical concern and a history of trauma, consider CT. /[place]
[2024-11-27] VITALS (7 sets, daily range): BP systolic 116–163; BP diastolic 50–94; PULSE 69–91; RESP 16–18; TEMP 97.5–98.7; O2SAT 96–100
[2024-11-27 04:12] LABS: IMMATURE GRANULOCYTE ABSOLUTE 0.01 K/uL (0-1); NUCLEATED RED BLOOD CELLS 0.0 % (0.0-0.19); PLATELET COUNT (AUTO) 165 K/uL (130-400); RED BLOOD CELL COUNT(AUTO) 3.95 MIL/uL (4.00-5.50); RED CELL DISTRIBUTION WIDTH 14.9 % (11.0-15.5); WHITE BLOOD COUNT (AUTO) 4.8 K/uL (4.8-10.8)
[2024-11-27 04:25] LABS: CREATININE 0.9 mg/dL (0.5-1.0); GLOMERULAR FILTR. RATE CALC 66.0 mL/min (>90); GLUCOSE,RANDOM 93.0 mg/dL (70-105); SODIUM SERUM 138.0 mmol/L (136-145); UREA NITROGEN, BLOOD 13.0 mg/dL (7-18)
[2024-11-27] MEDS: amLODIPine 5 MG TAB PO SCH (08:42)
[2024-11-27] MEDS ORDERED: PREDNISOLONE ACETATE OD SCH (09:00)
[2024-11-27] MEDS ORDERED: [UNRECOGNIZED DRUG - OTHER] OD SCH (09:00)
[2024-11-27] MEDS ORDERED: PoTASSium chl 10% ELIXIR 20MEQ 20 MEQ/15 ML UDCUP PO PRN (11:30)
--- NOTE | 2024-11-27 12:03 | NUR ---
DCP:HOME Pt currently lives with dgt Elsi Hendrickson [phone] and son in law. Pt does not have any DME, home health, or provider services. Pt states that she is able to complete ADLs independently. PCP is Dr. Gopal Mcnamara and uses [facility] for any RX needs. At [place] pt will want to go home and family can assist with transportation. Addendum: 11/27/24 at 1211 by JESSICA TORRES SS Amended: Links added.
[2024-11-27] MEDS ORDERED: AMLO5TAB6 PO (14:38)
[2024-11-27] MEDS ORDERED: LEVO750T90 PO (14:38)
[2024-11-27 15:12] LABS: NUCLEATED RED BLOOD CELLS 0.0 % (0.0-0.19); PLATELET COUNT (AUTO) 185.0 K/uL (130-400); RED BLOOD CELL COUNT(AUTO) 4.03 MIL/uL (4.00-5.50); RED CELL DISTRIBUTION WIDTH 14.9 % (11.0-15.5); WHITE BLOOD COUNT (AUTO) 5.0 K/uL (4.8-10.8)
--- NOTE | 2024-11-27 15:12 | DS ---
Discharge Summary Hospital Course Summary: This is a 78-year-old female with a past medical history of diabetes mellitus type 2, hypertension, hyperlipidemia, COPD, history of chronic alcoholism, passive smoker, urinary incontinence who presented to the ED with the complaints of bilateral lower extremity weakness, generalized weakness for the past few days associated with shortness of breath, which increased in intensity with activity and chronic cough. Initial labs CBC unremarkable, BNP unremarkable, chest x-ray shows perihilar shadows and right lower lobe opacities, concerning for pneumonia and she was started on levofloxacin [address] chest demonstrated Mild alveolitis in both lungs is likely a mild infective or i nflammatory process, Few lung nodules. Lung RADS category 2, recommend annual screening with LDCT, No focal infiltrates. Subsegmental atelectasis bilaterally, Cadiomegaly with mild atherosclerosis, Mild hiatua hernia. She also reported mild intermittent diffuse headaches associated with mild photosensitivity with similar episodes in the past. CT head revealed No acute intracranial abnormality, Mild diffuse age-related cerebral atrophy and chronic small vessel ischemic changes. Suspected left frontal arachnoid cyst, Osteoma measuring approximately 5.3 mm along the outer table of the left parietal bone, Mild bilateral ethmoid sinusitis. Her neck pain, occasional numbness and tingling sensation in the upper extremities can be attributed to cervical spondylosis more prominent at C5-C6 as per x-ray done on 11/26. Clonidine was reduced from twice daily to once daily due to its limited role in long-term hypertension management and possible contribution to headaches and amlodipine 5 mg p.o. daily was added achieving systolic blood pressure in 130s to 140s. Today the patient is seen and examined at the bedside she is awake alert and oriented. Vitals with systolic blood pressure ranging in 130s to 140s, SpO2 greater than 95% on room air. Labs hemoglobin 10.8, BMP unremarkable. She states that she feels well and has no complaints. Her headaches, generalized body weakness, shortness of breath symptoms have significantly improved. She is able to tolerate diet without any nausea/vomiting. Labs Hb 11. She denies noticing blood in the stool or urine. She is able to walk to 225 feet with cane without any difficulty. Clearance for discharge is obtained from PT standpoint. Case management was consulted for safe discharge plan. Advised to follow up with PCP within 2-3 days Skiing Teacher(s): None Procedure(s): SERVICE 41 REASON: sob ORDERING PHYSICIAN: ESTRELLITA RIVERA PROCEDURE: CXR1VW - CHEST 1VW EXAMINATION: CR Chest, 1 View. CLINICAL HISTORY: Patient presents with shortness of breath. COMPARISON: Chest radiograph dated March 18, 2024. FINDINGS: LUNGS: Patchy airspace opacities in the right lower zone, new since the prior examination. PLEURAL SPACES: No evidence of pleural effusion or pneumothorax. MEDIASTINUM: Prominent bilateral hilar shadows, new since the prior examination. The cardiomediastinal silhouette is within normal limits. BONES: No aggressive appearing osseous lesion seen. IMPRESSION: Patchy right lower zone airspace opacities, new since prior exam. Prominent bilateral hilar shadows, new since prior exam. Recommend CT thorax for further evaluation. SERVICE 41 REASON: headache ORDERING PHYSICIAN: ESTRELLITA RIVERA PROCEDURE: HEAD WO - CT HEAD/BRAIN W/O CONTRAST EXAM: Non-contrast CT examination of the Brain CLINICAL HISTORY: Headache. TECHNIQUE: Thin collimated axial CT images of the brain were obtained with sagittal and coronal reformatted images also submitted. CT scan done according to ALARA (As Low as Reasonably Achievable). CONTRAST USED: None. COMPARISON: CT dated 05/07/23. FINDINGS: Mild diffuse age-related cerebral atrophy is evident by prominent cisterns, and sulcal spaces. Scattered hypodensities noted in the white matter of bilateral cerebral hemispheres, likely chronic small vessel ischemic changes. Suspected left frontal arachnoid cyst. No acute cortical infarction or hemorrhage. No hydrocephalus. No abnormal extra-axial fluid collections. The posterior fossa is unremarkable. The skull base and calvarium are intact. 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 Mild bilateral ethmoid sinusitis. Remaining included portions of the paranasal sinuses and mastoid air cells are clear. IMPRESSION: No acute intracranial abnormality is present. If clinical concern persists, recommend MRI of the brain for further evaluation. Mild diffuse age-related cerebral atrophy and chronic small vessel ischemic changes. Suspected left frontal arachnoid cyst. 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 Mild bilateral ethmoid sinusitis. No significant interval changes. SERVICE 08 REASON: SOB, CXR- BILATERAL POERIHILAR SHADOWS ORDERING PHYSICIAN: MAIA BAUMANN MD PROCEDURE: CHEST WWO - CT CHEST W/WO CONTRAST EXAM: CT chest with and without contrast. CLINICAL HISTORY: Shortness of breath, bilateral perihilar shadows. TECHNIQUE: Thin collimated axial CT images of the chest were obtained with contrast with sagittal and coronal reformatted images also submitted. CT scan done according to ALARA (As Low as Reasonably Achievable). CONTRAST: Omnipaque 350. COMPARISON: CT dated June 03, 2022. FINDINGS: Mild atelectasis in the lower lobes, right middle lobe, and lingula. No collapse or consolidation. There are peribronchovascular areas of ground glass opacities in the right upper and both lower lobes. There are two to three nodules in the right lower lobe, the largest measuring approximately 5.8mm. No pleural effusions. No pericardial effusion. Mild cardiomegaly. Mild atherosclerotic changes in the aorta. No axillary, supraclavicular, or mediastinal lymphadenopathy. Limited views of the upper abdomen demonstrate a mild hiatus hernia. The bones under view show degenerative spondylotic changes in the spine. IMPRESSION: 1. Mild alveolitis in both lungs is likely a mild infective or inflammatory process. 2. Few lung nodules. Lung RADS category 2. Continue annual screening with LDCT. 3. No focal infiltrates. Subsegmental atelectasis bilaterally. 4. Cadiomegaly with mild atherosclerosis. 5. Mild hiatua hernia. Compared to the previous CT dated June 03, 2022, no significant interval SERVICE [id number] REASON: NECK PAIN ORDERING PHYSICIAN: MAIA BAUMANN MD PROCEDURE: CERV 2 3VW - CERV SPINE 2-3VWS CLINICAL INFORMATION Neck pain COMPARISON None. TECHNIQUE AP, lateral, and odontoid view of the cervical spine FINDINGS Vertebral Body Height: Normal. Alignment: Normal. Disc spaces: Mild/moderate multilevel disc height loss, worst at C5-C6. Posterior Elements: Moderate to severe multilevel facet arthrosis. Soft Tissues: Normal. Other: None. IMPRESSION Mild/moderate cervical spondylosis, worse at C5-C6. No evidence for acute osseous abnormality. If there is persistent clinical concern and a history of trauma, consider CT. Assessment/Plan: ASSESSMENT: Shortness of breath secondary to community-acquired pneumonia , POA Diffuse Generalized headaches, POA Generalized weakness secondary to pneumonia, POA Cervical Spondylosis, more prominent at C5,C6 as per cervical spine xray done on 11/26 Hypertension GERD Hypothyroidism, POA History of migraine headaches Anemia POA Diabetes mellitus type 2 PLAN: ADMISSION DATE : 11/24/2024 DISCHARGE DATE : 11/27/2024 DISPOSITION : Home CONDITION : Stable Skiing Teacher(s) : None FOLLOW UP APPOINTMENTS : Follow up with PCP within 2-3 days PROCEDURES : None IMAGING (s) : Cervical spine x-ray, chest x-ray, CT head, chest MICROBIOLOGY : None ACTIVITY : ad karsten HOME MEDICATIONS : Continue NEW MEDICATIONS : Levofloxacin 750 mg once daily for the remaining 3 day course, Norvasc 5 mg p.o. daily for 15 days, 15 tablets TEACHING : The patient was instructed to present to the nearest Emergency Department or call 911 should their symptoms return or worsen. Discharge Instructions: Follow up with PCP within 2-3 days Pneumonia: Complete remaining 3 day course of levofloxacin 750 mg once daily for pneumonia/mild alveolitis HTN: Take amlodipine 5 mg p.o. daily as directed Advised to take clonidine 0.1 mg once daily instead of twice daily. Do not stop suddenly as this can cause rebound headaches or increased BP. 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 Lung RADS category 2. Recommend annual screening with Low dose CT You have anemia, advised to monitor CBC and suggest further workup with PCP Home Medications: Active Scripts Levofloxacin (Levofloxacin) 750 Mg Tablet, 1 TAB PO DAILY for 3 Days, #3 TAB 0 Refills Prov:DARYN ANDRADE MD 11/27/24 Amlodipine Besylate (Norvasc) 5 Mg Tablet, 1 TAB PO DAILY for 15 Days, #15 TAB 0 Refills Prov:DARYN ANDRADE MD 11/27/24 Reported Medications [[place] 1.338GM/Ml] No Conflict Check, 1 DROP OU QID 11/25/24 Carboxymethylcellulose Sodium (Refresh Plus) 0.5 % [place], 1 EACH OP Q 2HRS , DROP TO BOTH EYES 11/25/24 Sodium Chloride (Sodium Chloride 5% Opth 15Ml) 5 % Drops, 1 DROP OS DAILY for 30 Days, #15 ML 0 Refills 11/25/24 Prednisolone Acetate/Pf (Prednisolone Acet 1% Eye Drop) 1 % Drops.susp, 1 DROP OD QODAY for 30 Days, #5 ML 0 Refills 11/25/24 Acyclovir (Acyclovir) 400 Mg Tablet, 1 TAB PO BID for 30 Days, #60 TAB 0 Refills 11/25/24 Dapagliflozin Propanediol (Farxiga) 10 Mg Tablet, 1 TAB PO DAILY for 30 Days, #30 TAB 0 Refills 11/25/24 Baclofen (Baclofen) 10 Mg Tablet, 1 TAB PO TID PRN for MUSCLE SPASMS for 30 Days, #90 TAB 0 Refills 11/25/24 Quetiapine Fumarate (Quetiapine Fumarate) 200 Mg Tablet, 150 MG PO IN AM, TAB 11/25/24 Quetiapine Fumarate (Quetiapine Fumarate) 100 Mg Tablet, 100 MG PO HS, TAB 11/25/24 Losartan Potassium (Losartan Potassium) 100 Mg Tablet, 1 TAB PO DAILY for 30 Days, #30 TAB 0 Refills 11/25/24 Clonidine HCl (Clonidine HCl) 0.1 Mg Tablet, 1 TAB PO Q12HRS for 30 Days, #30 TAB 0 Refills 11/25/24 Pantoprazole Sodium (Pantoprazole Sodium) 20 Mg Tablet.dr, 1 TAB PO DAILYBKFST for 30 Days, #30 TAB 0 Refills 11/25/24 [Vitamin D] No Conflict Check, 1.25 MG WEEKLY Mondays11/25/24 Levothyroxine Sodium (Levothyroxine Sodium) 125 Mcg Tablet, 1 TAB PO 0600 for 30 Days, #30 TAB 0 Refills 11/25/24 Buspirone HCl (Buspirone HCl) 15 Mg Tablet, 15 MG PO HS, TAB 11/25/24 Discontinued Reported Medications Prednisolone Acetate (Pred Forte 1% Ophth Susp) 20 Drop/Ml Opsus, 20 DROP OD DAILY, DROP 3/2/23 Simethicone (Anti-Gas) 180 Mg Capsule, 180 MG PO PM PRN for GI GAS, CAP 06/03/22 Semaglutide (Rybelsus) 3 Mg Tablet, 3 MG PO DAILY, TAB 06/03/22 Ergocalciferol (Vitamin D2) (Vitamin D2) 1,250 Mcg Capsule, 1250 MCG PO QWEEK, CAP 06/03/22 Rosuvastatin Calcium (Rosuvastatin Calcium) 10 Mg Tablet, 10 MG PO HS, TAB 06/03/22 Quetiapine Fumarate (Quetiapine Fumarate ER) 150 Mg Tab.er.24h, 150 MG PO DAILY, TAB 06/03/22 Levothyroxine Sodium (Levothyroxine Sodium) 88 Mcg Tablet, 88 MCG PO DAILY, TAB 04/12/17 Tizanidine HCl (Tizanidine HCl) 4 Mg Tablet, 4 MG PO HS, TAB 10/05/16 Alendronate Sodium (Alendronate Sodium) 70 Mg Tablet, 70 MG PO QWEEK, TAB 10/05/16 Quetiapine Fumarate (Quetiapine Fumarate) 100 Mg Tablet, 100 MG PO HS, TAB 03/01/16 Liothyronine Sodium (Liothyronine Sodium) 5 Mcg Tablet, 12.5 MCG PO BID 09/04/15 Losartan Potassium (Losartan Potassium) 100 Mg Tablet, 100 MG PO HS 09/04/15 Discontinued Scripts Tamsulosin HCl (Flomax) 0.4 Mg Cap.er.24h, 1 CAP PO DAILY for 10 Days, #10 CAP 0 Refills Prov:DASHAWN KENDALL MD 08/17/24 Levofloxacin (Levofloxacin) 750 Mg Tablet, 1 TAB PO DAILY for 14 Days, #14 TAB 0 Refills Prov:DASHAWN KENDALL MD 08/17/24 Pantoprazole Sodium (Protonix) 40 Mg Tablet.dr, 1 TAB PO DAILY for 30 Days, #30 TAB 0 Refills Prov:DASHAWN KENDALL MD 03/18/24 Nitrofurantoin Monohyd/M-Cryst (Macrobid 100 mg Capsule) 100 Mg Capsule, 1 CAP PO BID for 7 Days, #14 CAP 0 Refills Prov:DASHAWN KENDALL MD 03/18/24 Ondansetron (Ondansetron Odt) 4 Mg Tab.rapdis, 4 MG PO Q6HPRN PRN for nausea, #16 TAB 0 Refills Prov:CHARISSE APARICIO GAUGE CONTROLLER 07/24/23 Nitrofurantoin Macrocrystal (Nitrofurantoin) 100 Mg Capsule, 100 MG PO BID for 7 Days, #14 CAP Prov:CHARISSE APARICIO GAUGE CONTROLLER 07/24/23 Dicyclomine HCl (Bentyl) 20 Mg Tab, 20 MG PO Q6HPRN for abd crAMPS, #30 TAB Prov:CHARISSE APARICIO GAUGE CONTROLLER 07/24/23 Cefdinir (Cefdinir) 300 Mg Capsule, 300 MG PO BID for 7 Days, #14 CAP Prov:PEG BUSTAMANTE MD 05/07/23 Acetaminophen (Acetaminophen) 500 Mg Tablet, 1000 MG PO Q6HPRN PRN for PAIN, #30 TAB Prov:PEG BUSTAMANTE MD 05/07/23 Fluticasone Propionate (Flonase Nasal [place]) 50 Mcg/Actuation [place], 2 SPRAYS NASAL BID for 7 Days, #1 SPRAY in each nostril Prov:PEG BUSTAMANTE MD 05/07/23 Oxymetazoline HCl (Oxymetazoline HCl) 0.05 % [place], 2 SPRAYS NS BID PRN for NASAL CONGESTION for 3 Days, #1 SPRAY in each nostril Prov:PEG BUSTAMANTE MD 05/07/23 Guaifenesin (Guaifenesin) 200 Mg Tablet, 200 MG PO BID, #10 TAB 0 Refills Prov:MAG ZAMBRANO NP 11/28/22 Ondansetron (Ondansetron Odt) 4 Mg Tab.rapdis, 4 MG PO Q6HPRN PRN for nausea, #15 TAB 0 Refills Prov:MAG ZAMBRANO NP 11/28/22 Azithromycin (Azithromycin) 500 Mg Tablet, 500 MG PO 2 on day 1, then dustin for 5 Days, #6 TAB 0 Refills Prov:MAG ZAMBRANO NP 11/28/22 Sulfamethoxazole/Trimethoprim (Bactrim Ds Tablet) 1 Each Tablet, 1 TAB PO BID for uti for 5 Days, #10 TAB Prov:QUYEN MATOS MD 08/30/22 Aspirin (Aspirin) 81 Mg Tab.chew, 81 MG PO DAILY for 30 Days, #30 TAB.CHEW Prov:CLAUDINE HERNANDEZ NP 06/05/22 Ketorolac Tromethamine (Toradol) 10 Mg Tab, 10 MG PO Q6H PRN for PAIN LEVEL 6 TO 10, #16 TAB Prov:CLAUDINE HERNANDEZ GAUGE CONTROLLER 06/05/22 Budesonide/Formoterol Fumarate (Symbicort 80-4.5 Mcg Inhaler) 10.2 Gm Inhr, 10.2 GM IH BID for 30 Days, #1 INH Prov:CLAUDINE HERNANDEZ GAUGE CONTROLLER 06/05/22 Doxycycline Hyclate (Doxycycline Hyclate) 100 Mg Capsule, 100 MG PO BID for 5 Days, #10 CAP Prov:CLAUDINE HERNANDEZ NP 06/05/22 Ibuprofen (Motrin/Advil) 800 Mg Tab, 800 MG PO TID, #30 TAB Prov:ARABELLA MÁRQUEZ MD 03/30/22 Gabapentin (Neurontin) 300 Mg Capsule, 300 MG PO TID, #60 CAP Prov:ARABELLA MÁRQUEZ MD 03/30/22 Levalbuterol HCl (Xopenex) 1.25 Mg/3 Ml Vial.neb, 1.25 MG IH TID for copd for 10 Days, #30 INH Prov:AURA HASSAN 03/25/22 Pantoprazole Sodium (Protonix) 40 Mg Ectab, 40 MG PO DAILY for 30 Days, #30 TAB.EC Prov:JESSICA KELLER 07/30/19 Time spent arranging discharge: 31-60 minutes ATTESTATION BY PHYSICIAN I have seen and examined the patient. I reviewed the documentation, medical decision making, and treatment plan as noted by the resident above. I agree with the findings and plan of care. Donn Laughlin MD, PRIYANKA MD Nov 27, 2024 15:12
[2024-11-27] MEDS: PoTASSium chloRIDE 20MEQ ER 20 MEQ ERTAB PO PRN (16:21)
--- NOTE | 2024-11-27 16:55 | NUR ---
PT sitting in bed w/ eyes open 0 s/s of distress noted A&Ox4 able to make needs known denies pain or discomfort. Discharge instructions given to PT. PT verbally acknowledged understanding. I.V. removed intact w/o complications. PT escorted to POV via WC by [employer] HEAD INSPECTOR accompanied by family member.
== END 2024-11-27 17:00 | disposition home or self-care (01) | DRG 194 ==
LOC: EDH 17:07 → EDHIP 23:04 → 4AH 11-25 00:04
PROVIDERS: ADMIT Internal Medicine; ATTEND Internal Medicine
DX: J18.9 Pneumonia, unspecified organism (principal); J44.0 Chronic obstructive pulmonary disease with (acute) lower respiratory infection; J44.1 Chronic obstructive pulmonary disease with (acute) exacerbation; E11.9 Type 2 diabetes mellitus without complications; I10 Essential (primary) hypertension; E78.5 Hyperlipidemia, unspecified; F10.20 Alcohol dependence, uncomplicated; E03.9 Hypothyroidism, unspecified; K21.9 Gastro-esophageal reflux disease without esophagitis; G43.909 Migraine, unspecified, not intractable, without status migrainosus; D64.9 Anemia, unspecified; Z20.822 Contact with and (suspected) exposure to COVID-19; E78.00 Pure hypercholesterolemia, unspecified; Z96.642 Presence of left artificial hip joint; M47.812 Spondylosis without myelopathy or radiculopathy, cervical region; Z79.51 Long term (current) use of inhaled steroids; Z79.899 Other long term (current) drug therapy; Z82.0 Family history of epilepsy and other diseases of the nervous system; Z82.49 Family history of ischemic heart disease and other diseases of the circulatory system; Z82.5 Family history of asthma and other chronic lower respiratory diseases; Z83.3 Family history of diabetes mellitus; Z88.0 Allergy status to penicillin; Z90.710 Acquired absence of both cervix and uterus
CPT/HCPCS: 36415; 70450; 71045; 71270; 72040; 80048; 80053; 82948; 83036; 83605; 83735; 83880; 84100; 84443; 84484; 85025; 85027; 85651; 86140; 87635; 87804; 93005; 94640; 94664; 96374; 96375; 99285; G0378; J0360; J1650; J1885; J1956; J2270; J2405; J2550; J2919; Q9967

== ENCOUNTER 2025-01-02 14:49 | Emergency (ER) | payer OTHER ==
[~2025-01-02] VITALS: Ht 167.6 cm; Wt 76.7 kg
[~2025-01-02 14:49] MED LIST changes: -ACET-66 PO; +ACYC-429 PO; -ALEN70TA80 PO; +AMLO5TAB6 PO; -ASPI-1197 PO; -AZIT500T4 PO; +BACL10TA PO; -BUDE10.22 IH; +BUSP15TA3 PO; +CARB30DR OP; -CEFD300C3 PO; +CLON0.1T PO; +DAPA10TA PO; -DICY20TA2 PO; -DOXY100C5 PO; -ERGO500093 PO; -FLUT16H NASAL; -GABA300C PO; -GUAI200T5 PO; -IBUP-1493 PO; -KETO10 PO; -LEVA1.2525 IH; +LEVO125T11 PO; -LEVO88TA7 PO; -LIOT5TAB11 PO; +MIEBO OU; -NITR100C PO; -NITR100C4 PO; -ONDA-243 PO; -OXYM-30 NS; +PANT20TA18 PO; -PANT40TA PO; -PANT40TA55 PO; +PRED5DRO25 OD; -PREDAOS OD; -QUET150T15 PO; +QUET200T30 PO; -ROSU10TA72 PO; -SEMA3TAB4 PO; +SODI15DR8 OS; -SULF1TAB42 PO; -TAMS-55 PO; -TIZA-211 PO; +VITAMIN D; -[UNRECOGNIZED DRUG - CODE] PO
[2025-01-02 14:52] VITALS: TEMP 98.2
[2025-01-02 15:44] LABS: IMMATURE GRANULOCYTE ABSOLUTE 0.02 K/uL (0-1); NUCLEATED RED BLOOD CELLS 0.0 % (0.0-0.19); PLATELET COUNT (AUTO) 193 K/uL (130-400); RED BLOOD CELL COUNT(AUTO) 3.99 MIL/uL (4.00-5.50); RED CELL DISTRIBUTION WIDTH 16.6 % (11.0-15.5); WHITE BLOOD COUNT (AUTO) 6.3 K/uL (4.8-10.8)
[2025-01-02] MEDS: 0.9%NACL 1000ML 1,000 ML IV ONE (15:49)
[2025-01-02 15:54] LABS: CREATININE 0.7 mg/dL (0.5-1.0); GLOMERULAR FILTR. RATE CALC 88.0 mL/min (>90); GLUCOSE,RANDOM 127.0 mg/dL (70-105); SODIUM SERUM 141.0 mmol/L (136-145); UREA NITROGEN, BLOOD 9.0 mg/dL (7-18)
[2025-01-02 16:03] LABS: ASPARTATE AMINOTRANSFERASE 10.0 U/L (10-37); TOTAL PROTEIN, SERUM 6.3 g/dL (6.0-8.3)
--- NOTE | 2025-01-02 16:12 | HMCIMG ---
EXAM: CT Head Without IV contrast. CLINICAL HISTORY: neck pain TECHNIQUE: Axial computed tomography images of the head/brain without intravenous contrast. COMPARISON: None provided. FINDINGS: BRAIN: No evidence of acute hemorrhage. No mass lesion. No CT evidence for acute territorial infarct. No midline shift or extra-axial collections. VENTRICLES: No hydrocephalus. ORBITS: The orbits are unremarkable. SINUSES AND MASTOIDS: Mild mucosal thickening in the left sphenoid sinus. The rest of the paranasal sinuses and mastoid air cells are clear. BONES: No fracture. SOFT TISSUES: Unremarkable. IMPRESSION: 1. No acute intracranial findings. /[place]
--- NOTE | 2025-01-02 16:20 | HMCIMG ---
EXAM: CT Cervical Spine Without IV contrast. CLINICAL HISTORY: neck pain TECHNIQUE: Axial computed tomography images of the cervical spine without intravenous contrast. Sagittal and coronal reformatted images were generated. COMPARISON: Compared with the radiograph dated 11/[address] dated04/29/16 FINDINGS: ALIGNMENT: Mild retrolisthesis of the C4 vertebra. DEGENERATIVE CHANGES: Multilevel degenerative changes in the form of marginal osteophytes, disc space narrowing, and facet arthropathy are worst at the C4-C5 and C6-C7 levels. No significant canal stenosis or neural foraminal narrowing is evident. SOFT TISSUES: The prevertebral soft tissues are within normal limits. BONES: No acute fracture or aggressive appearing osseous lesion. IMPRESSION: 1. No acute osseous injury. 2. Mild to moderate degenerative changes /[place]
[2025-01-02] MEDS ORDERED: ONDA-243 PO (17:09)
--- NOTE | 2025-01-02 17:09 | ERN ---
ED Note History of Present Illness Stated Complaint: MULTIPLE COMPLAINTS Chief Complaint: Multiple Complaints Time Seen by MD: 14:54 Dictation: 79-year-old female presenting to the emergency department with body aches headache neck pain, patient also reports nausea and generalized discomfort over the past few days worse today. Allergies: Coded Allergies: Penicillins (Unverified Allergy, Severe, 04/29/15) SWELLING DIFFUCULTY BREATH RASH codeine (Unverified Allergy, Unknown, 02/03/19) Home Meds Active Scripts Levofloxacin (Levofloxacin) 750 Mg Tablet, 1 TAB PO DAILY for 3 Days, #3 TAB 0 Refills Prov:DARYN ANDRADE MD 11/27/24 Amlodipine Besylate (Norvasc) 5 Mg Tablet, 1 TAB PO DAILY for 15 Days, #15 TAB 0 Refills Prov:DARYN ANDRADE MD 11/27/24 Reported Medications [[place] 1.338GM/Ml] No Conflict Check, 1 DROP OU QID 11/25/24 Carboxymethylcellulose Sodium (Refresh Plus) 0.5 % Droperette, 1 EACH OP Q 2HRS , DROP TO BOTH EYES 11/25/24 Sodium Chloride (Sodium Chloride 5% Opth 15Ml) 5 % Drops, 1 DROP OS DAILY for 30 Days, #15 ML 0 Refills 11/25/24 Prednisolone Acetate/Pf (Prednisolone Acet 1% Eye Drop) 1 % Drops.susp, 1 DROP OD QODAY for 30 Days, #5 ML 0 Refills 11/25/24 Acyclovir (Acyclovir) 400 Mg Tablet, 1 TAB PO BID for 30 Days, #60 TAB 0 Refills 11/25/24 Dapagliflozin Propanediol (Farxiga) 10 Mg Tablet, 1 TAB PO DAILY for 30 Days, #30 TAB 0 Refills 11/25/24 Baclofen (Baclofen) 10 Mg Tablet, 1 TAB PO TID PRN for MUSCLE SPASMS for 30 Days, #90 TAB 0 Refills 11/25/24 Quetiapine Fumarate (Quetiapine Fumarate) 200 Mg Tablet, 150 MG PO IN AM, TAB 11/25/24 Quetiapine Fumarate (Quetiapine Fumarate) 100 Mg Tablet, 100 MG PO HS, TAB 11/25/24 Losartan Potassium (Losartan Potassium) 100 Mg Tablet, 1 TAB PO DAILY for 30 Days, #30 TAB 0 Refills 11/25/24 Clonidine HCl (Clonidine HCl) 0.1 Mg Tablet, 1 TAB PO Q12HRS for 30 Days, #30 TAB 0 Refills 11/25/24 Pantoprazole Sodium (Pantoprazole Sodium) 20 Mg Tablet.dr, 1 TAB PO DAILYBKFST for 30 Days, #30 TAB 0 Refills 11/25/24 [Vitamin D] No Conflict Check, 1.25 MG WEEKLY Mondays11/25/24 Levothyroxine Sodium (Levothyroxine Sodium) 125 Mcg Tablet, 1 TAB PO 0600 for 30 Days, #30 TAB 0 Refills 11/25/24 Buspirone HCl (Buspirone HCl) 15 Mg Tablet, 15 MG PO HS, TAB 11/25/24 Past Medical History Past Medical History: Arthritis, COPD, Diabetes-Type II, Hypertension Additional Past Medical Hx: THYROID, SINUS INFECTIONS Surgical History: Appendectomy, Hysterectomy, Other, Surgical History Other: LT HIP SX Family History: HTN Social History: Negative, Lives with family History: Not Applicable Review of System Dictation Constitutional: Negative for fever,chills, and weight loss Eyes: Negative for injury, pain,redness, and discharge ENT: Negative for injury,pain or swelling Cardiovascular: Negative for chest pain, palpitations, and edema Respiratory: Negative for shortness of breath, cough, and wheezing, Abdomen/GI: For HPI Back: Negative for injury and pain : Negative for injury, bleeding and discharge MS/Extremity: Negative for injury and deformity Skin: Negative for rash, and discoloration Neuro: For HPI Initial Vital Sign VS Vital Signs Date Time Temp Pulse Resp B/P (MAP) Pulse Ox O2 Delivery O2 Flow Rate FiO2 01/02/25 14:52 98.2 78 18 158/67 97 Room Air 0 01/02/25 15:44 21 Physical Exam Dictation General: awake, alert, appears uncomfortable Head/Face: Normocephalic, atraumatic Eyes: PERRL, EOMI, vision at baseline ENT: oral cavity clear, TMs clear, no signs of infection Neck: Trachea midline, supple, no nuchal rigidity Cardiovascular: RRR, normal S1/S2, No MRGs, no JVD Respiratory: CTAB, no respiratory distress, No rales or wheezes Abdomen: Soft, non-tender, non-distended, normal bowel sounds, no guarding or rebound. Skin: Warm, dry, normal turgor, no rash MS/Extremity: Pulses equal, no cyanosis, neurovascular intact, FROM Neuro: COAx4, GCS 15, strength 5/5, CN 2-12 intact, normal cerebellar exam, normal gait, Psych: Normal behavior, mood, and affect normal Results (Laboratory/Radiology) Laboratory/Radiology Laboratory Tests Test 01/02/25 15:38 01/02/25 16:07 01/02/25 16:22 White Blood Count 6.3 K/uL (4.8-10.8) Red Blood Count 3.99 MIL/uL (4.00-5.50) L Hemoglobin 10.9 g/dL (12.0-16.0) L Hematocrit 35.1 % (36-48) L Mean Corpuscular Volume 88.0 fL (79-99) Mean Corpuscular Hemoglobin 27.3 pg (27.0-33.0) Mean Corpuscular Hemoglobin Concent 31.1 g/dL (32.0-36.0) L Red Cell Distribution Width 16.6 % (11.0-15.5) H Platelet Count 193 K/uL (130-400) Mean Platelet Volume 12.5 fL (7.5-10.5) H Immature Granulocyte % (Auto) 0.3 % (0-1) Neutrophils (%) (Auto) 66.3 % (40.0-77.0) Lymphocytes (%) (Auto) 22.6 % (21.0-51.0) Monocytes (%) (Auto) 8.4 % (3.0-13.0) Eosinophils (%) (Auto) 2.1 % (0.0-8.0) Basophils (%) (Auto) 0.3 % (0.0-5.0) Neutrophils # (Auto) 4.2 K/uL (1.8-7.7) Lymphocytes # (Auto) 1.4 K/uL (1.0-4.8) Monocytes # (Auto) 0.5 K/uL (0.1-1.0) Eosinophils # (Auto) 0.13 K/uL (0.00-0.70) Basophils # (Auto) 0.02 K/uL (0.00-0.20) Absolute Immature Granulocyte (auto 0.02 K/uL (0-1) Nucleated Red Blood Cells 0.0 % (0.0-0.19) Sodium Level 141 mmol/L (136-145) Potassium Level 4.0 mmol/L (3.5-5.1) Chloride Level 106 mmol/L (101-111) Carbon Dioxide Level 29 mmol/L (21-32) Blood Urea Nitrogen 9 mg/dL (7-18) Creatinine 0.7 mg/dL (0.5-1.0) Glomerular Filtration Rate Calc 88 mL/min (>90) Random Glucose 127 mg/dL (70-105) H Total Calcium 8.6 mg/dL (8.5-10.1) Total Bilirubin 0.4 mg/dL (0.2-1.0) Direct Bilirubin 0.1 mg/dL (0.0-0.3) Aspartate Amino Transf (AST/SGOT) 10 U/L (10-37) Alanine Aminotransferase (ALT/SGPT) 20 U/L (12-78) Alkaline Phosphatase 64 U/L (50-136) Troponin I High Sensitivity 21 ng/L (4-50) Total Protein 6.3 g/dL (6.0-8.3) Albumin 3.4 g/dL (3.5-5.0) L Lipase 16 U/L (16-77) SARS-CoV-2 Antigen (Rapid) PRESUMPTIVE NEGATIVE Whole Blood Glucose 124 MG/DL (70-110) H Labs Reviewed?: Yes ED Course ED Course Orders Procedure Category Date Status Time Ct Cervical Spine W/O CT 01/02/25 Resulted Contrast 15:10 12 Lead Ekg Tracing- EKG 01/02/25 Logged Technical 15:10 Basic Metabolic Panel LAB 01/02/25 Complete 15:10 Cbc With Differential LAB 01/02/25 Complete 15:10 Hepatic Function Panel LAB 01/02/25 Complete 15:10 Troponin I High LAB 01/02/25 Complete Sensitivity 15:10 Urinalysis Profile LAB 01/02/25 Logged 15:10 Lipase LAB 01/02/25 Complete 15:10 Covid19 (Sars Antigen LAB 01/02/25 Complete Rapid) 15:10 Ct Head/Brain W/O CT 01/02/25 Resulted Contrast 15:10 Ondansetron 4mg Inj PHA 01/02/25 Complete (Zofran 4mg Inj) 15:30 Ketorolac PHA 01/02/25 Complete Tromethamine 15mg/Ml 15:30 0.9%Nacl 1000ml (Ns PHA 01/02/25 Complete 1000ml) 15:30 Current Medications Medications (Trade) Dose Ordered Sig/Emelina Route PRN Reason Start Time Stop Time Status Last Admin Dose Admin Ketorolac Tromethamine (toRADol) 15 mg ONCE ONCE IV 01/02/25 15:30 01/02/25 15:31 DC 01/02/25 15:49 Ondansetron HCl (zoFRAN 4MG INJ) 4 mg ONCE ONCE IVP 01/02/25 15:30 01/02/25 15:31 DC 01/02/25 15:49 Sodium Chloride 1,000 ml @ 0 mls/hr ONCE ONCE IV 01/02/25 15:30 01/02/25 15:31 DC 01/02/25 15:49 Vital Signs Date Time Temp Pulse Resp B/P (MAP) Pulse Ox O2 Delivery O2 Flow Rate FiO2 01/02/25 15:44 68 16 171/76 97 Room Air* 0 21 01/02/25 14:52 98.2 78 18 158/67 97 Room Air 0 Medical Decision Making MDM MDM: Differential diagnosis: Rationale: Tests considered and ordered secondary to shared decision making include: Previous outside records reviewed: Old ER visits. Risk of complication and/or morbidity or mortality of patient management: None Medications-Per medication reconciliation Need for hospitalization: Patient does not meet criteria for hospitalization. Need for emergency major/minor surgery: No There are no social concerns with this patient. Prescription drug management Prescriptions will include symptomatic care Patient's prior external medical records from other ER visits were reviewed by me as indicated. Prior testing and results from previous visits were reviewed. Prior tests were taken into account with medical decision making and resource utilization, independent historian/historians were used to obtain complete medical history. I independently interpreted the test that were performed, results were reviewed by me and considered findings on radiology if ordered. Medical management and examination interpretation discussions were had by me with other qualified healthcare professionals as indicated for the patient's care. 79-year-old female with generalized weakness, headache, stable exam negative workup stable for discharge. DX & DISP Disposition: Discharge Departure Impression: Primary Impression: Weakness Additional Impression: Acute headache Condition: Stable Scripts Ondansetron (Ondansetron Odt) 4 Mg Tab.rapdis 4 MG PO BID for vomiting for 5 Days, #10 TAB Prov: AMBER PEDRAZA MD 01/02/25 Referrals: HERMES ROSALES (PCP) AMBER PEDRAZA MD Jan 02, 2025 17:09
[2025-01-02 17:24] VITALS: BP 158/47; PULSE 70; RESP 17; O2SAT 96
--- NOTE | 2025-01-02 19:29 | EKG ---
[facility] Test Date: 2025-01-02 Test Time: 15:56:51 Pat Name: JORGE ALVARADO Department: ED Room: Gender: F Manager Tele[employer]eting: [id number] : [id number] Requested By: AMBER PEDRAZA Order Number: [id number] Reading MD: Tamir Salcido Measurements Intervals [place] Rate: 64 P: -34 SD: 176 QRS: -34 QRSD: 104 T: 103 QT: 405 QTc: 409 Interpretive Statements Sinus rhythm Atrial premature complexes LVH with secondary repolarization abnormality Anterior Q waves, possibly due to LVH Compared to ECG 11/24/2024 17:19:07 No significant changes Electronically Signed On 01-02-2025 21:36:40 CDT by Tamir Salcido Please click the below link to view image of tracing.
== END 2025-01-02 17:39 | disposition home or self-care (01) ==
LOC: EDH 14:49
DX: R53.1 Weakness (principal); R51.9 Headache, unspecified; E11.9 Type 2 diabetes mellitus without complications; I10 Essential (primary) hypertension; J44.9 Chronic obstructive pulmonary disease, unspecified; Z79.624 Long term (current) use of inhibitors of nucleotide synthesis; Z79.84 Long term (current) use of oral hypoglycemic drugs; Z79.899 Other long term (current) drug therapy; Z88.0 Allergy status to penicillin; Z88.5 Allergy status to narcotic agent; Z90.49 Acquired absence of other specified parts of digestive tract; Z90.710 Acquired absence of both cervix and uterus; Z20.822 Contact with and (suspected) exposure to COVID-19
CPT/HCPCS: 99285; 70450; 96374; 96361; 96375; 87426; 80076; 84484; 80048; 83690; 85025; 82948; 36415; 72125; 93005; J1885; J7030; J2405